=== PATIENT | male | born 1960 | race Caucasian/White ===

== ENCOUNTER → 2019-04-16 | Outpatient (CLI) | payer OTHER ==
--- NOTE | 2019-04-17 13:53 | CT ---
EXAMINATION TYPE: CT abdomen pelvis w con DATE OF EXAM: 04/16/2019 COMPARISON: None HISTORY: Pt c/o stomach pain/nausea. Peripheral vascular angioplasty status. Pt hx abdominal aorta re pair CT DLP: 1036.9 mGycm Automated exposure control for dose reduction was used. TECHNIQUE: Helical acquisition of images was performed from the lung bases through the pelvis. CONTRAST: Performed with Oral Contrast and with IV Contrast, patient injected with 100 mL of Isovue 300. FINDINGS: LUNG BASES: Bibasilar subsegmental dependent atelectasis is seen. There is an oval well-circumscribed 2.6 x 1.3 cm right basilar nodule that appears to contain macroscopic fat and is favored to represen t a hamartoma. Right hemidiaphragm is noted. LIVER/GB: There is a 1.2 cm hypoattenuated hepatic lesion on image 9 near the dome of the diaphragm i n segment 8 that is incompletely characterized. This appears to fill in on delayed imaging and may re present a small hemangioma. A 2 mm too small to accurately characterize lesion is also seen near the dome of diaphragm on delayed image 14. No intrahepatic biliary ductal dilatation. No radiopaque gladys lithiasis. PANCREAS: There are 2 punctate hypoattenuated pancreatic lesions measuring 2 mm and 4 mm on series 4 image 28 in the pancreatic body. No pancreatic ductal dilatation. Punctate calcifications are seen wi thin the pancreas, sequela of chronic pancreatitis. No current peripancreatic fat stranding. SPLEEN: No significant abnormality is seen. ADRENALS: No significant abnormality is seen. KIDNEYS: Left upper pole renal cyst and multiple additional too small to accurately characterize left renal lesions are scattered throughout the kidneys. No hydronephrosis. FREE AIR: No free air is visualized. ADENOPATHY: No greater than 1 cm short axis lymph node is seen within the abdomen or pelvis. REPRODUCTIVE ORGANS: Diffusely heterogenous containing numerous central zone calcifications. URINARY BLADDER: No significant abnormality is seen. OSSEOUS STRUCTURES: No significant abnormality is seen. BOWEL: Very subtle fat stranding is seen surrounding the transverse colon such as on image 38 and 39 . On coronal image 41 there is prominence of soft tissue also seen on image 43 near the ileocecal maribell ve is slightly distended terminal ileum on image 52. However the terminal and is nondilated measuring up to 2.5 cm. OTHER: Abdominal aorta appears of normal course and caliber. No surgical clips are seen surrounding t he abdominal aorta. Moderate calcific atheromatous changes are seen of the abdominal aorta and its br anches. No endovascular stent graft is seen. IMPRESSION: 1. PROMINENT SOFT TISSUE DENSITY IN THE CECUM NEAR THE ILEOCECAL VALVE WITH QUESTIONABLE REFLUX INTO THE TERMINAL ILEUM THE TERMINAL ILEUM IS SLIGHTLY PROMINENT IN SIZE COMPARED TO THE REMAINDER THE DISTAL ILEUM. CORRELATE WITH COLONOSCOPY IF SESSILE MASS. IF COLONOSCOPY HAS NOT RECENTLY PERFORMED I T WOULD BE RECOMMENDED. 2. RIGHT BASILAR PULMONARY NODULE APPEARS TO CONTAIN MACROSCOPIC FAT AND IS FAVORED TO REPRESENT A BE NIGN HAMARTOMA. COMPARISON WITH ANY PRIOR OUTSIDE IMAGING WOULD BE RECOMMENDED TO ENSURE STABILITY. I F NONE IS AVAILABLE SHORT-TERM FOLLOW-UP [address] THORAX OR PET/CT WOULD BE RECOMMENDED. 3. VERY SUBTLE FAT STRANDING SURROUNDING THE TRANSVERSE COLON COULD RELATE TO ACUTE UNCOMPLICATED MIL D COLITIS. CORRELATE WITH SYMPTOMS. 4. INDETERMINANT HEPATIC LESION IS SEEN THAT COULD REPRESENT A SMALL HEMANGIOMA GIVEN ITS ENHANCEMENT CHARACTERISTICS. ULTRASOUND COULD CONFIRM THE PRESENCE OF AN HYPERECHOIC LESION THAT WOULD CORRELATE WITH A HEMANGIOMA OR MRI WOULD BE DIAGNOSTIC AND STRAIGHTENING MARKED T2 HYPERINTENSITY. 5. NO CT CHANGES OF ENDOVASCULAR REPAIR ARE APPRECIATED IN THIS PATIENT WITH STATED PRIOR ABDOMINAL A ORTIC SURGERY. NO ANEURYSMAL DILATATION.
== END | disposition home or self-care (01) ==
LOC: RADCTMAIN 14:43
PROVIDERS: ATTEND Internal Medicine
DX: Z48.812 Encounter for surgical aftercare following surgery on the circulatory system (principal); K63.9 Disease of intestine, unspecified; R91.1 Solitary pulmonary nodule; K76.9 Liver disease, unspecified; K86.9 Disease of pancreas, unspecified; Z98.62 Peripheral vascular angioplasty status
CPT/HCPCS: 74177; Q9967

== ENCOUNTER → 2019-05-03 | Outpatient (CLI) | payer OTHER ==
--- NOTE | 2019-05-03 08:19 | US ---
EXAMINATION TYPE: US liver DATE OF EXAM: 05/03/2019 COMPARISON: CT dated 04/16/2019 CLINICAL HISTORY: D18.03 Hemangioma of Liver. EXAM MEASUREMENTS: Liver Length: 12.6 cm Gallbladder Wall: 0.2 cm CBD: 0.3 cm Right Kidney: 11.4 x 4.4 x 5.7 cm Pancreas: Head slightly obscured by bowel gas Liver: round, well circumscribed, hyperechoic focus, probable hemangioma measuring 1.2 x 1.3 x 1.3cm Gallbladder: tiny echogenic foci measuring 2mm probable small polyps Evidence for sonographic Mera's sign: no CBD: wnl Right Kidney: wnl IMPRESSION: 1. Hyperechoic hepatic lesion correlates with the probable hemangioma on the prior CT of 04/16/2019. T his is also avascular. Considering appearance on both modalities this is most compatible with a benig n hemangioma. 2. Slightly heterogenous hyperechoic subcapsular right hepatic lobe in region likely and area of foca l fatty infiltration as normal vessels course throughout this area without mass effect and this is ge ographic. 3. Probable 2 mm polyp in the gallbladder. Annual surveillance could be performed for polyps of ascit es.
== END | disposition home or self-care (01) ==
LOC: RADUSWWP 06:43
PROVIDERS: ATTEND Internal Medicine
DX: D18.03 Hemangioma of intra-abdominal structures (principal)
CPT/HCPCS: 76705

== ENCOUNTER 2022-02-12 08:30 | Inpatient (IN) | payer MEDICARE, OTHER ==
[2022-02-12 09:36] LABS: Basophils # (A) 0.1 k/uL (0-0.2); Basophils % (A) 0 %; Eosinophils % (A) 0 %; HCT 46.8 % (39.0-53.0); HGB 15.1 gm/dL (13.0-17.5); Lymphocytes # (A) 0.9 k/uL (1.0-4.8); Lymphocytes % (A) 4 %; MCH 30.9 pg (25.0-35.0); MCHC 32.3 g/dL (31.0-37.0); MCV 95.7 fL (80.0-100.0); Mean Platelet Volume 7.3; Monocytes # (A) 0.5 k/uL (0-1.0); Monocytes % (A) 2 %; Neutrophils # (A) 20.3 k/uL (1.3-7.7); Neutrophils % (A) 93 %; Platelet Count 303 k/uL (150-450); RBC 4.89 m/uL (4.30-5.90); RDW 14.2 % (11.5-15.5); WBC 21.9 k/uL (3.8-10.6)
[2022-02-12 09:40] LABS: INR 1.1 (<1.2); Partial Thromboplastin Time 22.4 sec (22.0-30.0); Prothrombin Time 11.6 sec (9.0-12.0)
[2022-02-12 09:48] LABS: ALT 43 U/L (4-49); AST 21 U/L (17-59); African American GFR (CKD) >90 (>60 ml/min/1.73 sqM); Albumin 3.1 g/dL (3.5-5.0); Alkaline Phosphatase 66 U/L (38-126); Anion Gap 5 mmol/L; Blood Urea Nitrogen 32 mg/dL (9-20); Calcium 8.3 mg/dL (8.4-10.2); Carbon Dioxide 30 mmol/L (22-30); Chloride 101 mmol/L (98-107); Glucose 106 mg/dL (74-99); Non-African American GFR(CKD) >90 (>60 ml/min/1.73 sqM); Sodium 136 mmol/L (137-145); Total Bilirubin 1.6 mg/dL (0.2-1.3); Total Protein 6.5 g/dL (6.3-8.2)
--- NOTE | 2022-02-12 10:31 | XR ---
EXAMINATION TYPE: XR chest 2V DATE OF EXAM: 02/12/2022 COMPARISON: CT 04/16/2019 HISTORY: 61 year-old male shortness of breath, difficulty breathing TECHNIQUE: AP and lateral views FINDINGS: Heart upper limits of normal in size. Aorta within normal limits. Mild interstitial prominence. Some strandy left basilar atelectasis. Small left-sided pleural effusion on the lateral view. Similar asym metric elevation right hemidiaphragm. IMPRESSION: Borderline heart size. Small left pleural effusion on the lateral view. Correlate to exclude mild CHF as a potential etiology.
[2022-02-12] MEDS ORDERED: methylPREDNISolone SOD SUCCI 125 MG/2 ML VIAL IV STA (10:39)
[2022-02-12] MEDS ORDERED: VANCOMYCIN IV PER PHARMACY 1 EACH MISC MISCELLANE PRN (10:40)
[2022-02-12] MEDS ORDERED: MORPHINE SULFATE 4 MG/ML SYRINGE IVP STA ×2 (10:40→12:55)
[2022-02-12] MEDS ORDERED: VANCOMYCIN 1,750 MG in SODIUM CHLORIDE 0.9% 500 ML 500 ML IVPB STA (10:43)
--- NOTE | 2022-02-12 12:31 | XR ---
EXAMINATION TYPE: XR ankle complete bilateral DATE OF EXAM: 02/12/2022 COMPARISON: NONE HISTORY: Pain FINDINGS: Three views of the bilateral ankle demonstrate the ankle mortise to be intact and symmetric. The meliton nt spaces are preserved. The osseous structures are intact. Soft tissue edema. Calcaneal spurs IMPRESSION: 1. No definite acute fracture or dislocation, if symptoms persist follow-up study in 7 to 10 days wou ld be suggested. 2. Tiny calcaneal spurs
--- NOTE | 2022-02-12 12:34 | XR ---
EXAMINATION TYPE: XR foot complete bilateral DATE OF EXAM: 02/12/2022 COMPARISON: NONE HISTORY: Pain TECHNIQUE: Three views are submitted. FINDINGS: The osseous structures are intact. There is no acute fracture or dislocation. Diffuse osteopenia b ilaterally. There is arthropathy of the first MTP bilaterally. No erosive changes. Tiny calcaneal spurs. IMPRESSI ON: 1. No acute fracture or dislocation. If symptoms persist, follow-up exam in 7 to 10 days could be ob tained.
--- NOTE | 2022-02-12 12:35 | ED ---
General Adult HPI - General Chief complaint: Extremity Problem,Nontraumatic Stated complaint: Feet Swelling/Shoulder Pain Time Seen by Provider: 02/12/22 10:10 Source: patient, family, RN notes reviewed, old records reviewed Mode of arrival: wheelchair Limitations: no limitations - History of Present Illness Initial comments: Patient is a 61-year-old male with past medical history remarkable for rheumatoid arthritis, hypertension, who was recently discharged from an outside facility yesterday following admission for heart failure exacerbation presents emergency Department complaining of worsening pain and swelling in his right hand, bilateral feet. Patient states this is been an ongoing issue. Believes it is related to his rheumatoid arthritis. He was discharged home on steroids following a progressive course of steroids in the emergency department and during his admission. States he is having pain in these areas. Decreased range of motion secondary to pain. Denies any sensory deficits. Did notice development of an area of redness over the dorsal aspect of the right foot. Denies any fevers, chills. Was not placed on antibiotics. His no other acute complaints at this time. Patient was evaluated when he was placed in a room. Workup was started in the waiting room. - Related Data Home Medications Medication Instructions Recorded Confirmed Cholecalciferol [Vitamin D3 (25 25 mcg PO DAILY 02/12/22 02/12/22 Mcg = 1000 Iu)] Colchicine 0.6 mg PO DAILY 02/12/22 02/12/22 Famotidine [Pepcid] 20 mg PO BID 02/12/22 02/12/22 Furosemide [Lasix] 20 mg PO DAILY 02/12/22 02/12/22 HYDROcodone/APAP 7.5-325MG [[place] 1 tab PO Q6H PRN 02/12/22 02/12/22 7.5-325] carvediloL [Coreg] 3.125 mg PO BID 02/12/22 02/12/22 lisinopriL [Zestril] 5 mg PO DAILY 02/12/22 02/12/22 predniSONE See Taper PO DAILY 02/12/22 02/12/22 Allergies Allergy/AdvReac Type Severity Reaction Status Date / Time No Known Allergies Allergy Verified 02/12/22 10:47 Review of Systems ROS Statement: Those systems with pertinent positive or pertinent negative responses have been documented in the HPI. Review of Systems: CONST: Denies fever EYES: Denies blurry vision ENT: Denies nasal congestion C/V: Denies Chest pain RESP: Denies shortness of breath GI: Denies abdominal pain : Denies dysuria SKIN: Endorses redness of her right foot MSK: Endorses joint pain NEURO: Denies headache ROS Other: All systems not noted in ROS Statement are negative. Past Medical History Past Medical History: Hypertension, Rheumatoid Arthritis (RA) History of Any Multi-Drug Resistant Organisms: None Reported Additional Past Surgical History / Comment(s): cataracts, colonoscopy Past Psychological History: No Psychological Hx Reported Smoking Status: Current every day smoker Past Alcohol Use History: None Reported Past Drug Use History: None Reported General Exam - General Exam Comments Initial Comments: General: Appears in mild distress secondary to pain in his feet and his right hand. HEAD: Normal with no signs of head trauma. EYES: PERRLA, EOMI, conjunctiva normal, no discharge. ENT: Hearing grossly intact, normal oropharynx. RESPIRATORY: Clear breath sounds bilaterally. No wheezes, rales, or rhonchi. C/V: Regular rate and rhythm. S1 and S2 auscultated, bilateral mild pitting edema of bilateral ankles., peripheral pulses 2+ and intact throughout ABD: Abd is soft, nontender, nondistended EXT: Swelling and increased tenderness to palpation over the right foot, left foot, right wrist. No obvious deformities. Decreased range of motion secondary to swelling and pain. SKIN: Erythematous patch located over the dorsal aspect of the right foot in the midfoot region. No obvious fluctuance palpated. No induration. No discharge. NEURO: Alert and oriented 4. No focal sensory strength deficits. Difficulty walking secondary to pain in his feet. Limitations: no limitations Course Vital Signs 02/12/22 02/12/22 08:39 12:50 Temperature 97.0 F L Pulse Rate 73 90 Respiratory 18 18 Rate Blood Pressure 116/77 129/80 O2 Sat by Pulse 96 98 Oximetry Procedures - [place] Protocol (Time Out) Nurse: Valentina Quintana Medical Decision Making - Medical Decision Making Based on the patient's presentation and physical exam, I'm concerned for possible cellulitis of the right foot, and what is likely a exacerbation of the patient's rheumatoid arthritis. He's been on steroids for multiple days, we camille l continue them in the department. He'll receive pain medications. His no other acute complaint at this time. Workup was started in triage. It was remarkable for an elevated leukocytosis of 21.9 which is likely secondary to his steroid use. Lactic acid is elevated to 2.6. CRP is minimally elevated to 22. Troponin was negative and BNP was negative. EKG showed no acute ischemic process. Chest x-ray revealed possible very mild CHF. He was brought back over concern for lactic acidosis and leukocytosis. On my evaluation, I did discuss with the patient that this may be factorial, however there is an area of erythema located on the patient's right foot which could represent a cellulitis. We will empirically treat with IV vancomycin. Her blood cultures in addition to BNP, which is negative for signs heart failure. Plain films of the patient's extremities revealed no acute process, but soft tissue swelling is present. X-ray of the hand does reveal nodules consistent with history of rheumatoid arthritis. I discussed with the patient that is likely experiencing a rheumatoid arthritis flare in addition to possible cellulitis of the dorsal aspect of the right foot. Patient is having difficulty ambulating. I did discuss with the patient we can admit him overnight as an observation admission, and he was in agreement. He for pain control as well as IV antibiotics. He will likely go home tomorrow. He is having difficulty ambulating with his leukocytosis and mild lactic ac idosis of this is reasonable. Patient was in agreement this plan. I discussed the case with the admitting team, observation to the [facility] physician group, Dr. Dias who was in agreement with the plan. - Lab Data Result diagrams: 02/12/22 08:55 02/12/22 08:55 Lab Results 02/12/22 02/12/22 02/12/22 Range/Units 08:55 08:55 08:55 WBC 21.9 H (3.8-10.6) k/uL RBC 4.89 (4.30-5.90) m/uL Hgb 15.1 (13.0-17.5) gm/dL Hct 46.8 (39.0-53.0) % MCV 95.7 (80.0-100.0) fL MCH 30.9 (25.0-35.0) pg MCHC 32.3 (31.0-37.0) g/dL RDW 14.2 (11.5-15.5) % Plt Count 303 (150-450) k/uL MPV 7.3 Neutrophils % 93 % Lymphocytes % 4 % Monocytes % 2 % Eosinophils % 0 % Basophils % 0 % Neutrophils # 20.3 H (1.3-7.7) k/uL Lymphocytes # 0.9 L (1.0-4.8) k/uL Monocytes # 0.5 (0-1.0) k/uL Eosinophils # 0.0 (0-0.7) k/uL Basophils # 0.1 (0-0.2) k/uL Manual Slide Review Performed PT 11.6 (9.0-12.0) sec INR 1.1 (<1.2) APTT 22.4 (22.0-30.0) sec Sodium 136 L (137-145) mmol/L Potassium 4.0 (3.5-5.1) mmol/L Chloride 101 (98-107) mmol/L Carbon Dioxide 30 (22-30) mmol/L Anion Gap 5 mmol/L BUN 32 H (9-20) mg/dL Creatinine 0.82 (0.66-1.25) mg/dL Est GFR (CKD-EPI)AfAm >90 (>60 ml/min/1.73 sqM) Est GFR (CKD-EPI)NonAf >90 (>60 ml/min/1.73 sqM) Glucose 106 H (74-99) mg/dL Lactic Ac Sepsis Rflx Plasma Lactic Acid Gregorio (0.7-2.0) mmol/L Calcium 8.3 L (8.4-10.2) mg/dL Total Bilirubin 1.6 H (0.2-1.3) mg/dL AST 21 (17-59) U/L ALT 43 (4-49) U/L Alkaline Phosphatase 66 (38-126) U/L Troponin I (0.000-0.034) ng/mL C-Reactive Protein (<1.0) mg/dL NT-Pro-B Natriuret Pep pg/mL Total Protein 6.5 (6.3-8.2) g/dL Albumin 3.1 L (3.5-5.0) g/dL Urine Color Urine Appearance (Clear) Urine pH (5.0-8.0) Ur Specific [place] (1.001-1.035) Urine Protein (Negative) Urine Glucose (UA) (Negative) Urine Ketones (Negative) Urine Blood (Negative) Urine Nitrite (Negative) Urine Bilirubin (Negative) Urine Urobilinogen (<2.0) mg/dL Ur Leukocyte Esterase (Negative) 02/12/22 02/12/22 02/12/22 Range/Units 08:55 08:55 10:00 WBC (3.8-10.6) k/uL RBC (4.30-5.90) m/uL Hgb (13.0-17.5) gm/dL Hct (39.0-53.0) % MCV (80.0-100.0) fL MCH (25.0-35.0) pg MCHC (31.0-37.0) g/dL RDW (11.5-15.5) % Plt Count (150-450) k/uL MPV Neutrophils % % Lymphocytes % % Monocytes % % Eosinophils % % Basophils % % Neutrophils # (1.3-7.7) k/uL Lymphocytes # (1.0-4.8) k/uL Monocytes # (0-1.0) k/uL Eosinophils # (0-0.7) k/uL Basophils # (0-0.2) k/uL Manual Slide Review PT (9.0-12.0) sec INR (<1.2) APTT (22.0-30.0) sec Sodium (137-145) mmol/L Potassium (3.5-5.1) mmol/L Chloride (98-107) mmol/L Carbon Dioxide (22-30) mmol/L Anion Gap mmol/L BUN (9-20) mg/dL Creatinine (0.66-1.25) mg/dL Est GFR (CKD-EPI)AfAm (>60 ml/min/1.73 sqM) Est GFR (CKD-EPI)NonAf (>60 ml/min/1.73 sqM) Glucose (74-99) mg/dL Lactic Ac Sepsis Rflx Y Plasma Lactic Acid Gregorio 2.6 H* (0.7-2.0) mmol/L Calcium (8.4-10.2) mg/dL Total Bilirubin (0.2-1.3) mg/dL AST (17-59) U/L ALT (4-49) U/L Alkaline Phosphatase (38-126) U/L Troponin I <0.012 (0.000-0.034) ng/mL C-Reactive Protein (<1.0) mg/dL NT-Pro-B Natriuret Pep pg/mL Total Protein (6.3-8.2) g/dL Albumin (3.5-5.0) g/dL Urine Color Urine Appearance (Clear) Urine pH (5.0-8.0) Ur Specific [place] (1.001-1.035) Urine Protein (Negative) Urine Glucose (UA) (Negative) Urine Ketones (Negative) Urine Blood (Negative) Urine Nitrite (Negative) Urine Bilirubin (Negative) Urine Urobilinogen (<2.0) mg/dL Ur Leukocyte Esterase (Negative) 02/12/22 02/12/22 02/12/22 Range/Units 11:15 11:15 12:25 WBC (3.8-10.6) k/uL RBC (4.30-5.90) m/uL Hgb (13.0-17.5) gm/dL Hct (39.0-53.0) % MCV (80.0-100.0) fL MCH (25.0-35.0) pg MCHC (31.0-37.0) g/dL RDW (11.5-15.5) % Plt Count (150-450) k/uL MPV Neutrophils % % Lymphocytes % % Monocytes % % Eosinophils % % Basophils % % Neutrophils # (1.3-7.7) k/uL Lymphocytes # (1.0-4.8) k/uL Monocytes # (0-1.0) k/uL Eosinophils # (0-0.7) k/uL Basophils # (0-0.2) k/uL Manual Slide Review PT (9.0-12.0) sec INR (<1.2) APTT (22.0-30.0) sec Sodium (137-145) mmol/L Potassium (3.5-5.1) mmol/L Chloride (98-107) mmol/L Carbon Dioxide (22-30) mmol/L Anion Gap mmol/L BUN (9-20) mg/dL Creatinine (0.66-1.25) mg/dL Est GFR (CKD-EPI)AfAm (>60 ml/min/1.73 sqM) Est GFR (CKD-EPI)NonAf (>60 ml/min/1.73 sqM) Glucose (74-99) mg/dL Lactic Ac Sepsis Rflx Plasma Lactic Acid Greg[place] 2.4 H* (0.7-2.0) mmol/L Calcium (8.4-10.2) mg/dL Total Bilirubin (0.2-1.3) mg/dL AST (17-59) U/L ALT (4-49) U/L Alkaline Phosphatase (38-126) U/L Troponin I (0.000-0.034) ng/mL C-Reactive Protein 22.0 H (<1.0) mg/dL NT-Pro-B Natriuret Pep 379 pg/mL Total Protein (6.3-8.2) g/dL Albumin (3.5-5.0) g/dL Urine Color Urine Appearance (Clear) Urine pH (5.0-8.0) Ur Specific [place] (1.001-1.035) Urine Protein (Negative) Urine Glucose (UA) (Negative) Urine Ketones (Negative) Urine Blood (Negative) Urine Nitrite (Negative) Urine Bilirubin (Negative) Urine Urobilinogen (<2.0) mg/dL Ur Leukocyte Esterase (Negative) 02/12/22 Range/Units 12:29 WBC (3.8-10.6) k/uL RBC (4.30-5.90) m/uL Hgb (13.0-17.5) gm/dL Hct (39.0-53.0) % MCV (80.0-100.0) fL MCH (25.0-35.0) pg MCHC (31.0-37.0) g/dL RDW (11.5-15.5) % Plt Count (150-450) k/uL MPV Neutrophils % % Lymphocytes % % Monocytes % % Eosinophils % % Basophils % % Neutrophils # (1.3-7.7) k/uL Lymphocytes # (1.0-4.8) k/uL Monocytes # (0-1.0) k/uL Eosinophils # (0-0.7) k/uL Basophils # (0-0.2) k/uL Manual Slide Review PT (9.0-12.0) sec INR (<1.2) APTT (22.0-30.0) sec Sodium (137-145) mmol/L Potassium (3.5-5.1) mmol/L Chloride (98-107) mmol/L Carbon Dioxide (22-30) mmol/L Anion Gap mmol/L BUN (9-20) mg/dL Creatinine (0.66-1.25) mg/dL Est GFR (CKD-EPI)AfAm (>60 ml/min/1.73 sqM) Est GFR (CKD-EPI)NonAf (>60 ml/min/1.73 sqM) Glucose (74-99) mg/dL Lactic Ac Sepsis Rflx Plasma Lactic Acid [place] (0.7-2.0) mmol/L Calcium (8.4-10.2) mg/dL Total Bilirubin (0.2-1.3) mg/dL AST (17-59) U/L ALT (4-49) U/L Alkaline Phosphatase (38-126) U/L Troponin I (0.000-0.034) ng/mL C-Reactive Protein (<1.0) mg/dL NT-Pro-B Natriuret Pep pg/mL Total Protein (6.3-8.2) g/dL Albumin (3.5-5.0) g/dL Urine Color Yellow Urine Appearance Clear (Clear) Urine pH 6.0 (5.0-8.0) Ur Specific [place] 1.030 (1.001-1.035) Urine Protein Trace H (Negative) Urine Glucose (UA) Negative (Negative) Urine Ketones Negative (Negative) Urine Blood Negative (Negative) Urine Nitrite Negative (Negative) Urine Bilirubin Negative (Negative) Urine Urobilinogen 2.0 (<2.0) mg/dL Ur Leukocyte Esterase Negative (Negative) - EKG Data -: EKG Interpreted by Me EKG Comments: 12-lead Electrocardiogram Interpretation Note EKG was reviewed and interpreted by myself. 12-lead ECG performed at 0855 is interpreted by me as revealing normal sinus rhythm at a rate of 75 beats per minute. [place] is normal. OR interval is 155 ms, QRS duration is 137 ms, QTc is 447 ms.. There were no ST or T wave abnormalities to suggest myocardial ischemia or injury. R wave progression across the precordium was satisfactory. By my interpretation this EKG is non-diagnostic for acute ischemia. Disposition Clinical Impression: Cellulitis, Rheumatoid arthritis flare, Lactic acidosis Disposition: ADMITTED IP TO THIS HOSP Condition: Stable Referrals: Margarito Kulkarni DO [Primary Care Provider] - 1-2 days
--- NOTE | 2022-02-12 12:36 | XR ---
EXAMINATION TYPE: XR wrist complete 3 views RT, XR hand complete 3 views RT DATE OF EXAM: 02/12/2022 COMPARISON: NONE HISTORY: 61-year-old male pain FINDINGS: Wrist: Generalized soft tissue swelling. Subchondral geode measuring up to 9 mm mid radial since and also 5 mm ulnar styloid process. Additional subchondral geodes within the lunate measuring 6 mm. There is er osive change of the ulnar styloid process and possible subtle marginal erosions at the trapezium scap hoid joint and first CMC joint. Also, along the dorsal aspect of the CMC joint on the lateral view. N o acute fracture or dislocation. Hand: Marginal erosions involving the second and fifth MCP joints. Lesser degree of changes of the PIP join ts particularly second and third as well as the first MCP joint. Periarticular osteopenia and mild so ft tissue swelling. IMPRESSION (wrist and hand): Subcortical cysts about the wrist, erosion of the ulnar styloid process, and multiple areas of periar ticular erosion CMC, MCP, and PIP joints. Generalized soft tissue swelling. Overall pattern suggests an inflammatory arthropathy such as rheumatoid arthritis. Further workup and evaluation is recommende dMonika
[2022-02-12] MEDS ORDERED: SODIUM CHLORIDE 0.9% 500 ML 500 ML IV ONE (12:37)
[2022-02-12] MEDS ORDERED: NALOXONE 0.4 MG/ML 1 ML VIAL IV PRN (12:51)
[2022-02-12 13:03] LABS: Appearance,Urine Clear (Clear); Bilirubin,Urine Negative (Negative); Blood,Urine Negative (Negative); Color,Urine Yellow; Glucose,Urine (UA) Negative (Negative); Ketones,Urine Negative (Negative); Leukocyte Esterase,Urine Negative (Negative); Nitrite,Urine Negative (Negative); Protein,Urine Trace (Negative)
[2022-02-12] MEDS: KETOROLAC 15 MG/ML 1 ML VIAL IVP SCH ×2 (14:42→20:50)
[2022-02-12] MEDS: carvediloL 3.125 MG TAB PO SCH (14:56)
--- NOTE | 2022-02-12 17:38 | P.HPIM ---
History of Present Illness H&P Date: 02/12/22 Chief Complaint: ankle/joint swelling 61-year-old man with hypertension, severe obstructive sleep apnea, history of congestive heart failure with unspecified ejection fraction, rheumatoid arthritis, gout presented with joint swelling and pain. Patient says that this has been present for approximately 1 week, initially went to the hospital to get treated for this, was started with IV steroids, then discharged on by mouth steroids and colchicine. Furthermore, his hydrochlorothiazide was discontinued and replaced with Lasix and carvedilol. However, he apparently did not start taking his oral steroids, and his ankle swelling and pain returned, in addition to now having pain in the right wrist as well with limited mobility. He also reports some increased dorsal foot redness, heat. He denies fevers, chills, nausea, vomiting, chest pain, palpitations, sick to be, presyncope, cough, dyspnea, abdominal pain, constipation, diarrhea, dysuria, dyschezia, numbness/weakness of extremities. In the emergency room, patient is afebrile, 116/77, 96% on room air, heart rate 73. CBC is markable for leukocytosis to 21.9, chemistries remarkable for elevated BUN to 32. LFTs are unremarkable. ESR/CRP are 28/22. Troponin was negative. BNP was 379. UA shows trace protein, otherwise unremarkable. Patient had foot and ankle x-ray which showed arthropathy of the first MTP bilaterally, no erosive changes. Patient had hand and wrist x-ray, showing subcortical cyst about the wrists, rotation of the ulnar styloid process and multiple areas of periarticular erosion with generalized soft tissue swelling. All Systems reviewed and pertinent positives and negatives noted in HPI, all other symptoms are negative Gen: awake, alert, obesity class III HEENT: normocephalic, atraumatic, good hearing acuity, moist mucous membranes Resp: good air exchange, breathing comfortably with no accessory muscle use CVS: good distal perfusion x 4, GI: soft, NTTP, ND : no SPT, no CVAT, jordan catheter not present MSK: Trace pitting edema, no clubbing, right ankle swelling with mild erythema, right wrist swelling with limited range of motion, redness, calor Neuro: non-focal, moving all extremities Psych: cooperative, euthymic mood Labs and imaging reviewed as above Assessment/plan: Rheumatoid arthritis flare -Admit to observation -Continue home prednisone, 40 mg daily -Morphine/Toradol when necessary -Continue Lasix, Coreg -Patient was started on vancomycin for suspected cellulitis, however, I will discontinue this, as the white blood cell count is likely reactive to steroids as well as ongoing rheumatoid arthritis flare -Uric acid is normal ruling out Gout, will not restart home colchicine MICHELLE History of congestive heart failure, unspecified ejection fraction Hypertension -Home medications reviewed and reconciled Patient is a full code Heparin 3 times a day for DVT prophylaxis Past Medical History Past Medical History: Hypertension, Rheumatoid Arthritis (RA) History of Any Multi-Drug Resistant Organisms: None Reported Additional Past Surgical History / Comment(s): cataracts, colonoscopy Past Psychological History: No Psychological Hx Reported Smoking Status: Current every day smoker Past Alcohol Use History: None Reported Past Drug Use History: None Reported Medications and Allergies Home Medications Medication Instructions Recorded Confirmed Type Cholecalciferol [Vitamin D3 (25 25 mcg PO DAILY 02/12/22 02/12/22 History Mcg = 1000 Iu)] Colchicine 0.6 mg PO DAILY 02/12/22 02/12/22 History Famotidine [Pepcid] 20 mg PO BID 02/12/22 02/12/22 History Furosemide [Lasix] 20 mg PO DAILY 02/12/22 02/12/22 History HYDROcodone/APAP 7.5-325MG [[place] 1 tab PO Q6H PRN 02/12/22 02/12/22 History 7.5-325] carvediloL [Coreg] 3.125 mg PO BID 02/12/22 02/12/22 History lisinopriL [Zestril] 5 mg PO DAILY 02/12/22 02/12/22 History predniSONE See Taper PO DAILY 02/12/22 02/12/22 History Allergies Allergy/AdvReac Type Severity Reaction Status Date / Time No Known Allergies Allergy Verified 02/12/22 10:47 Physical Exam Osteopathic Statement: *. No significant issues noted on an osteopathic structural exam other than those noted in the History and Physical/Consult. Vitals: Vital Signs Temp Pulse Resp BP Pulse Ox 02/12/22 14:55 74 18 125/81 93 L 02/12/22 12:50 90 18 129/80 98 02/12/22 08:39 97.0 F L 73 18 116/77 96 Intake and Output 02/12/22 02/12/22 02/12/22 06:59 14:59 22:59 Other: Weight 108.862 kg Results CBC & Chem 7: 02/12/22 08:55 02/12/22 08:55 Labs: Abnormal Lab Results - Last 24 Hours (Table) 02/12/22 02/12/22 02/12/22 Range/Units 08:55 08:55 08:55 WBC 21.9 H (3.8-10.6) k/uL Neutrophils # 20.3 H (1.3-7.7) k/uL Lymphocytes # 0.9 L (1.0-4.8) k/uL ESR (0-15) mm/hr Sodium 136 L (137-145) mmol/L BUN 32 H (9-20) mg/dL Glucose 106 H (74-99) mg/dL Plasma Lactic Acid Gregorio 2.6 H* (0.7-2.0) mmol/L Calcium 8.3 L (8.4-10.2) mg/dL Total Bilirubin 1.6 H (0.2-1.3) mg/dL C-Reactive Protein (<1.0) mg/dL Albumin 3.1 L (3.5-5.0) g/dL Urine Protein (Negative) 02/12/22 02/12/22 02/12/22 Range/Units 08:55 11:15 12:25 WBC (3.8-10.6) k/uL Neutrophils # (1.3-7.7) k/uL Lymphocytes # (1.0-4.8) k/uL ESR 28 H (0-15) mm/hr Sodium (137-145) mmol/L BUN (9-20) mg/dL Glucose (74-99) mg/dL Plasma Lactic Acid Greogrio 2.4 H* (0.7-2.0) mmol/L Calcium (8.4-10.2) mg/dL Total Bilirubin (0.2-1.3) mg/dL C-Reactive Protein 22.0 H (<1.0) mg/dL Albumin (3.5-5.0) g/dL Urine Protein (Negative) 02/12/22 02/12/22 Range/Units 12:29 15:26 WBC (3.8-10.6) k/uL Neutrophils # (1.3-7.7) k/uL Lymphocytes # (1.0-4.8) k/uL ESR (0-15) mm/hr Sodium (137-145) mmol/L BUN (9-20) mg/dL Glucose (74-99) mg/dL Plasma Lactic Acid Gregorio 2.2 H* (0.7-2.0) mmol/L Calcium (8.4-10.2) mg/dL Total Bilirubin (0.2-1.3) mg/dL C-Reactive Protein (<1.0) mg/dL Albumin (3.5-5.0) g/dL Urine Protein Trace H (Negative)
[2022-02-12] MEDS: HEPARIN SODIUM,PORCINE/PF 5,000 UNIT/0.5 ML SYRINGE SQ SCH (18:57)
[2022-02-12] MEDS: FAMOTIDINE 20 MG TAB PO SCH (21:48)
[2022-02-12] MEDS ORDERED: VANCOMYCIN 1,750 MG in SODIUM CHLORIDE 0.9% 500 ML 500 ML IVPB SCH (23:00)
[2022-02-13] MEDS: KETOROLAC 15 MG/ML 1 ML VIAL IVP SCH ×5 (00:06→23:30)
[2022-02-13] MEDS: HEPARIN SODIUM,PORCINE/PF 5,000 UNIT/0.5 ML SYRINGE SQ SCH ×4 (00:06→23:31)
[2022-02-13] MEDS: FUROSEMIDE 20 MG TAB PO SCH (08:59)
[2022-02-13] MEDS ORDERED: predniSONE 20 MG TAB PO SCH (09:00)
[2022-02-13] MEDS: carvediloL 3.125 MG TAB PO SCH ×2 (09:01→17:40)
[2022-02-13] MEDS: lisinopriL 5 MG TAB PO SCH (09:01)
[2022-02-13] MEDS: FAMOTIDINE 20 MG TAB PO SCH ×2 (09:05→21:40)
[2022-02-13] MEDS ORDERED: VANCOMYCIN IV PER PHARMACY 1 EACH MISC MISCELLANE PRN (10:23)
--- NOTE | 2022-02-13 10:39 | P.PN ---
Subjective Progress Note Date: 02/13/22 Pt still with significant swelling in right wrist and knuckles with pain and erythema. BCx GS is positive for GPCs in clusters concerning for staph infection and septic arthritis. Will consult ID and ortho. Gen: awake, alert, obesity class III HEENT: normocephalic, atraumatic, good hearing acuity, moist mucous membranes Resp: good air exchange, breathing comfortably with no accessory muscle use CVS: good distal perfusion x 4, GI: soft, NTTP, ND : no SPT, no CVAT, jordan catheter not present MSK: Trace pitting edema, no clubbing, right ankle swelling with mild erythema, right wrist swelling with limited range of motion, redness, calor Neuro: non-focal, moving all extremities Psych: cooperative, euthymic mood Labs and imaging reviewed as above Assessment/plan: Cellulitis versus Septic Arthritis -Admit to observation, upgraded to inpatient -Continue home prednisone, 40 mg daily -Morphine/Toradol when necessary -Continue Lasix, Coreg -Continue vancomycin -f/u BCx, GS with +GPCs in groups, will add Cx for 02/14 -Ortho consult, pending -ID consult, pending -Uric acid is normal ruling out Gout, will not restart home colchicine MICHELLE History of congestive heart failure, unspecified ejection fraction Hypertension -Home medications reviewed and reconciled Patient is a full code Heparin 3 times a day for DVT prophylaxis Objective - Vital Signs Vital signs: Vital Signs Temp 98.1 F 02/13/22 07:18 Pulse 61 02/13/22 07:18 Resp 16 02/13/22 07:18 BP 110/51 02/13/22 07:18 Pulse Ox 97 02/13/22 07:18 Intake & Output 02/12/22 02/13/22 02/13/22 18:59 06:59 18:59 Output Total 550 200 Balance -550 -200 Weight 108.862 kg Output: Urine 550 200 Other: # Voids 0 - Labs CBC & Chem 7: 02/12/22 08:55 02/12/22 08:55 Labs: Abnormal Lab Results - Last 24 Hours (Table) 02/12/22 02/12/22 02/12/22 Range/Units 08:55 11:15 12:25 ESR 28 H (0-15) mm/hr Plasma Lactic Acid Gregorio 2.4 H* (0.7-2.0) mmol/L C-Reactive Protein 22.0 H (<1.0) mg/dL Urine Protein (Negative) 02/12/22 02/12/22 02/12/22 Range/Units 12:29 15:26 18:45 ESR (0-15) mm/hr Plasma Lactic Acid Gregorio 2.2 H* 2.2 H* (0.7-2.0) mmol/L C-Reactive Protein (<1.0) mg/dL Urine Protein Trace H (Negative) 02/12/22 02/13/22 Range/Units 23:07 01:45 ESR (0-15) mm/hr Plasma Lactic Acid Gregorio 2.3 H* 2.2 H* (0.7-2.0) mmol/L C-Reactive Protein (<1.0) mg/dL Urine Protein (Negative) Microbiology - Last 24 Hours (Table) 02/12/22 11:30 Blood Culture Gram Stain - Preliminary Blood 02/12/22 11:30 Blood Culture Gram Stain - Preliminary Blood 02/12/22 11:15 Blood Culture - Final Blood 02/12/22 11:30 Blood Culture - Final Blood
[2022-02-13 12:13] LABS: African American GFR (CKD) 99.9 (60.0-200.0); Non-African American GFR(CKD) 86.2 (60.0-200.0)
--- NOTE | 2022-02-13 12:15 | P.CNOR ---
History of Present Illness - [facility] Consult date: 02/13/22 Consult reason: joint pain (Right wrist pain, recent positive blood culture, concern for right wrist septic arthritis) History of present illness: Patient is a 61-year-old male was admitted to [facility] on 02/12/2022. Patient was recently discharged from [facility] after being worked up for cardiac issue. Patient has a history of rheumatoid arthritis, he currently does not take any biologic medications for this. 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 Patient has been on a few doses of oral steroids over the last few weeks. Patient presented to the hospital with regards to increasing pain and swelling in the bilateral feet along with the right wrist. Initial lab tests and imaging test were done when the patient arrived at the hospital. Cultures were also taken. I was contacted by the internal medicine doctor today regarding patient's Gram stain from the blood culture that revealed gram-positive cocci. With the wrist swelling and discomfort there is concern for septic arthritis, our orthopedic team was consulted for this reason. Patient was evaluated at bedside today, he is resting comfortably. He notes most of the discomfort in the dorsum of the hand and the wrist joint on the right-hand side. Patient states that the swelling in the feet are also bothering him, but nothing compared to the right wrist. Patient denies any re cent surgery of the right wrist. He does have a history of a carpal tunnel surgery that was done many years ago at a different facility. Patient denies any orthopedic complaints at this time Review of Systems Constitutional: Reports as per [facility] Past Medical History Past Medical History: Hypertension, Rheumatoid Arthritis (RA) History of Any Multi-Drug Resistant Organisms: None Reported Additional Past Surgical History / Comment(s): cataracts, colonoscopy Past Psychological History: No Psychological Hx Reported Smoking Status: Current every day smoker Past Alcohol Use History: None Reported Past Drug Use History: None Reported Medications and Allergies Home Medications Medication Instructions Recorded Confirmed Type Famotidine [Pepcid] 20 mg PO BID 02/12/22 02/12/22 History carvediloL [Coreg] 3.125 mg PO BID 02/12/22 02/12/22 History lisinopriL [Zestril] 5 mg PO DAILY 02/12/22 02/12/22 History predniSONE See Taper PO DAILY 02/12/22 02/12/22 History HYDROcodone/APAP 7.5-325MG [[place] 1 tab PO Q4H PRN #18 tab 02/13/22 Rx 7.5-325] Ibuprofen [Motrin] 600 mg PO Q6HR PRN #30 tab 02/13/22 Rx Allergies Allergy/AdvReac Type Severity Reaction Status Date / Time No Known Allergies Allergy Verified 02/12/22 10:47 Physical Examination Right upper extremity: No obvious open lesions are present throughout the right upper extremity. There are multiple rheumatologic nodules present on the right hand, mainly across the digits of the hand, there are also some present at the MCP joints, mainly on the fifth MCP joint. There is some scabbing noted on that nodule on the fifth MCP joint. Mild erythema surrounds that area. No other significant areas of erythema are noted throughout the extremity Patient demonstrates adequate range of motion with shoulder elevation, shoulder abduction, wrist extension and wrist flexion. No significant pain is reproduced in those joints with range of motion. Patient is able to wiggle all the fingers and minimal difficulty, he has a hard time making a fist. Active motion of the wrist does reproduce pain mainly on the dorsal aspect, passive range of motion also reproduces significant pain at the distal radial ulnar joint. Passive motion of the fingers reproduces no significant pain in any of the joints both on the dorsum and volar side Obvious swelling is present throughout the dorsum of the hand and also at the radioulnar joint. This is obviously noticeable when comparing to the contralateral side. No significant tenderness with palpation throughout the fingers, including DIP and PIP joints along with the MCP joints. Obvious tenderness with palpation along the distal radioulnar joint with palpation. Difficult to appreciate obvious area of fluctuance near the DRUJ, although he demonstrates more tenderness on the ulnar aspect of the joint with obvious swelling present Sensory exam to light touch is intact throughout the extremity. Radial ulnar pulses are 2+ Results - Labs Labs: Abnormal Lab Results - Last 24 Hours (Table) 02/12/22 02/12/22 02/12/22 Range/Units 08:55 11:15 12:25 ESR 28 H (0-15) mm/hr Plasma Lactic Acid Gregorio 2.4 H* (0.7-2.0) mmol/L C-Reactive Protein 22.0 H (<1.0) mg/dL Urine Protein (Negative) 02/12/22 02/12/22 02/12/22 Range/Units 12:29 15:26 18:45 ESR (0-15) mm/hr Plasma Lactic Acid Gregorio 2.2 H* 2.2 H* (0.7-2.0) mmol/L C-Reactive Protein (<1.0) mg/dL Urine Protein Trace H (Negative) 02/12/22 02/13/22 Range/Units 23:07 01:45 ESR (0-15) mm/hr Plasma Lactic Acid Gregorio 2.3 H* 2.2 H* (0.7-2.0) mmol/L C-Reactive Protein (<1.0) mg/dL Urine Protein (Negative) Microbiology - Last 24 Hours (Table) 02/12/22 11:30 Blood Culture Gram Stain - Preliminary Blood 02/12/22 11:30 Blood Culture Gram Stain - Preliminary Blood 02/12/22 11:15 Blood Culture - Final Blood 02/12/22 11:30 Blood Culture - Final Blood H & H 02/12/22 Range/Units 08:55 Hgb 15.1 (13.0-17.5) gm/dL Hct 46.8 (39.0-53.0) % Coagulation 02/12/22 Range/Units 08:55 INR 1.1 (<1.2) Result Diagrams: 02/12/22 08:55 02/12/22 08:55 - Diagnostic results Wrist/Hand MRI: report reviewed, image reviewed (Imaging and report were reviewed of the right wrist/10. No obvious acute fractures or dislocations. Multiple subcortical cysts noted throughout the hand and wrist) Assessment and Plan Assessment: Right wrist pain/swelling Rheumatoid arthritis, right wrist involvement Possible septic arthritis right wrist Other medical comorbidities Plan: I was able to discuss the case, including physical exam findings and imaging studies and my attending Dr. Landeros. Patient was made nothing by mouth after my evaluation. Discussed with patient with his lab findings along with physical exam findings and his other medical comorbidities he is a higher risk for infection. Also taking the consideration of positive blood culture this also makes him a higher risks it could be involving the right wrist. Dr. Landeros will be evaluating the patient little later on this afternoon, he will likely attempt an aspiration of the right wrist. If this is done, proper tubes will be sent to lab for further evaluation. Nothing by mouth diet at this time GI and DVT prophylaxis per primary medical service Other medical receptionist medical assistant and recommendations Further recommendations to follow Time with Patient: Less than 30
[2022-02-13] MEDS: VANCOMYCIN 1,750 MG in SODIUM CHLORIDE 0.9% 500 ML 500 ML IVPB SCH ×2 (12:44→23:30)
[2022-02-13] MEDS: MORPHINE SULFATE 4 MG/ML SYRINGE IVP PRN ×2 (12:56→21:54)
[2022-02-13 14:32] LABS: Anion Gap 9.6 mmol/L (10.00-18.00); BUN/Creat Ratio 36.67 Ratio (12.00-20.00); Calcium 8.1 mg/dL (8.7-10.3); Carbon Dioxide 26.4 mmol/L (20.0-27.5); Non-African American GFR(CKD) 90.6 (60.0-200.0)
--- NOTE | 2022-02-13 15:54 | P.PCN ---
Date of Procedure: 02/13/22 Preoperative Diagnosis: right wrist septic arthritis Postoperative Diagnosis: same Procedure(s) Performed: right wrist aspiration Surgeon: Edgar Landeros Sawmilling Operator #1: Benjamín Pompa Estimated Blood Loss (ml): 0 Pathology: other (cell count; synovial crystals; aerobic; anaerobic; gram stain) Condition: stable Disposition: floor Indications for Procedure: elevated WBC edema; pain + culture Operative Findings: 3 cc serous fluid with pus Description of Procedure: The risk and benefits of the procedure were discussed the patient today at bedside, he is in good understanding and would like to proceed. Patient was in semirecumbent position, the wrist was prepped with 1 chlorarep. An 18-gauge needle was inserted over the dorsum of right wrist/hand and about 3 mL of fluid was aspirated from wrist/hand (3 cc of serous fluid including some pus). Patient tolerated procedure well, a bandage was placed after the aspiration. Fluid was then sent to the lab for anaerobic and aerobic cultures, cell count, Gram stain and crystal analysis
[2022-02-13 16:17] LABS: Basophils # (A) 0.02 X 10*3/uL (0.00-0.10); Basophils % (A) 0.1 %; Eosinophils # (A) 0.01 X 10*3/uL (0.04-0.35); Eosinophils % (A) 0.1 %; HCT 38.2 % (39.6-50.0); HGB 12.2 g/dL (13.0-17.0); Immature Grans, Automated 1.1 %; Lymphocytes # (A) 1.01 X 10*3/uL (0.90-5.00); Lymphocytes % (A) 5.1 %; MCH 29.9 pg (27.0-32.0); MCHC 31.9 g/dL (32.0-37.0); MCV 93.6 fL (80.0-97.0); Mean Platelet Volume 10.5 fL (9.5-12.2); Monocytes # (A) 0.59 X 10*3/uL (0.20-1.00); NRBC Per 100 WBC 0 /100 WBCS (0.0-0.0); Neutrophils # (A) 17.93 X 10*3/uL (1.80-7.70); Neutrophils % (A) 90.6 %; Platelet Count 184 X 10*3/uL (140-440); RBC 4.08 X 10*6/uL (4.40-5.60); RDW 14.2 % (11.5-14.5); WBC 19.78 X 10*3/uL (4.50-10.00)
[2022-02-13 16:18] LABS: RBC Morphology NORMAL
[2022-02-13] MEDS ORDERED: fentaNYL (PF) 50 MCG/ML 2 ML AMP ONE (19:22)
[2022-02-13] MEDS ORDERED: PROPOFOL 10 MG/ML 20 ML VIAL IV ONE (19:22)
[2022-02-13] MEDS ORDERED: IV FLUID CONTINUATION 1,000 ML IV ONE (19:25)
--- NOTE | 2022-02-13 22:47 | P.CONS ---
History of Present Illness - Reason for Consult Consult date: 02/13/22 bacteremia Requesting physician: Halina Zelaya - Chief Complaint right wrist pain x few days - History of Present Illness History of present illness : patient is a 61-year-old male with a past medical history significant for hypertension sleep apnea congestive heart failure rheumatoid arthritis and gout presenting to the hospital with consideration for pain to the right foot that has been there for about a week the patient denies having history of any trauma has been complaining of mostly diffuse duration of pain intensity almost 6-7 out of 10 and no radiation patient did have associated ankle swelling we did subsequent started having to notice pain and swelling to the right wrist area, with the symptoms patient was evaluated by the ER physician on arrival to the ER the patient was afebrile and no fever has been recorded subsequently patient did have a white count of 21.9 with a left shift sed rate was 28 creatinine was normal lactic acid was elevated urine was negative patient did have a chest x-ray borderline heart size small left effusion ankle x-ray no definite acute fracture or dislocation patient did have a wrist x-ray subcortical cyst about the wrist erosion of the ulnar styloid process and multiple areas of periarticular erosion generalized soft tissue swelling blood cultures came back positive with gram-positive cocci vancomycin was dated patient has been evaluated by orthopedics with concern for septic arthritis patient did have aspirate of the joint and infectious disease was consulted for further management of antibiotic therapy Review of system: CONSTITUTIONAL: Positive for weakness however denies high-grade fever. EYES: No complaint. ENT: No complaint. RESPIRATORY: No complaint. CARDIOVASCULAR: No complaint. GENITOURINARY: No complaint. GASTROINTESTINAL: No complaint. MUSCULOSKELETAL: As per history of present illness. INTEGUMENTARY: No complaint. PSYCHOLOGIC: No complaint. ENDOCRINE: No complaint. NEUROLOGIC: No complaint. Past medical history : Reviewed, documented below Past surgical history : Reviewed, documented below Social history: Reviewed, documented below Medications: Reviewed, as documented below EXAMINATION: Vital sigans= Reviewed and documented below GENERAL DESCRIPTION: Middle-aged male lying in bed, no distress. No tachypnea or accessory muscle of respiration use. HEENT: Shows Pallor , no scleral icterus. Oral mucous membrane is dry. NECK: Trachea central, no thyromegaly. LUNGS: Unlabored breathing. Clear to auscultation anteriorly. No wheeze or crackle. HEART: S1, S2, regular rate and rhythm. ABDOMEN: Soft, no tenderness , guarding or rigidity EXTREMITIES: Right wrist did have minimal swelling slightly tenderness to touch. SKIN: No rash, no masses palpable. NEUROLOGICAL: The patient is awake, alert, oriented x3, mood and affect normal. LABS AND RADIOLOGY: Reviewed results see below Assessment : Patient with gram-positive bacteremia in this patient presented to hospital with initially right ankle swelling and pain now with mostly pain and swelling to the right wrist area in this patient who did have history of underlying rheumatoid arthritis plain x-ray did show some bony destruction which could be related to underlying rheumatoid arthritis underlying septic arthritis not entirely excluded and likely the source of this bacteremia Plan: 1-vancomycin pharmacy to dose with a target trough of 15 while watching kidney function and Vanco trough closely. 2-blood cultures will be be document clearance of bacteremia We will follow on clinical condition and cultures to further adjust medication if needed Thank you for this consultation we will follow the patient along with you Past Medical History Past Medical History: Hypertension, Rheumatoid Arthritis (RA) History of Any Multi-Drug Resistant Organisms: None Reported Additional Past Surgical History / Comment(s): cataracts, colonoscopy Past Psychological History: No Psychological Hx Reported Smoking Status: Current every day smoker Past Alcohol Use History: None Reported Past Drug Use History: None Reported Medications and Allergies Home Medications Medication Instructions Recorded Confirmed Type Famotidine [Pepcid] 20 mg PO BID 02/12/22 02/12/22 History carvediloL [Coreg] 3.125 mg PO BID 02/12/22 02/12/22 History lisinopriL [Zestril] 5 mg PO DAILY 02/12/22 02/12/22 History predniSONE See Taper PO DAILY 02/12/22 02/12/22 History HYDROcodone/APAP 7.5-325MG [[place] 1 tab PO Q4H PRN #18 tab 02/13/22 Rx 7.5-325] Ibuprofen [Motrin] 600 mg PO Q6HR PRN #30 tab 02/13/22 Rx Allergies Allergy/AdvReac Type Severity Reaction Status Date / Time No Known Allergies Allergy Verified 02/12/22 10:47 Physical Exam Vitals: Vital Signs Temp Pulse Pulse Resp BP BP Pulse Ox 02/13/22 07:18 98.1 F 61 16 110/51 97 02/13/22 01:54 98.6 F 71 18 137/75 94 L 02/12/22 20:29 98.5 F 74 18 146/78 94 L 02/12/22 18:22 73 18 133/89 94 L 02/12/22 14:55 74 18 125/81 93 L Intake and Output 02/12/22 02/13/22 02/13/22 22:59 06:59 14:59 Intake Total 118 Output Total 550 200 Balance -550 -82 Intake: Oral 118 Output: Urine 550 200 Other: # Voids 0 Results CBC & Chem 7: 02/13/22 07:32 02/13/22 07:32 Labs: Abnormal Lab Results - Last 24 Hours (Table) 02/12/22 02/12/22 02/12/22 Range/Units 15:26 18:45 23:07 Anion Gap (10.00-18.00) mmol/L BUN (9.0-27.0) mg/dL BUN/Creatinine Ratio (12.00-20.00) Ratio Glucose (70-110) mg/dL Plasma Lactic Acid Gregorio 2.2 H* 2.2 H* 2.3 H* (0.7-2.0) mmol/L Calcium (8.7-10.3) mg/dL 02/13/22 02/13/22 Range/Units 01:45 07:32 Anion Gap 9.60 L (10.00-18.00) mmol/L BUN 33.0 H (9.0-27.0) mg/dL BUN/Creatinine Ratio 36.67 H (12.00-20.00) Ratio Glucose 121 H (70-110) mg/dL Plasma Lactic Acid Gregorio 2.2 H* (0.7-2.0) mmol/L Calcium 8.1 L (8.7-10.3) mg/dL Microbiology - Last 24 Hours (Table) 02/12/22 11:30 Blood Culture Gram Stain - Preliminary Blood Blood Culture - Preliminary Staphylococcus aureus 02/12/22 11:30 Blood Culture Gram Stain - Preliminary Blood 02/12/22 11:15 Blood Culture - Final Blood 02/12/22 11:30 Blood Culture - Final Blood
--- NOTE | 2022-02-13 23:45 | P.OP ---
Date of Procedure: 02/13/22 Preoperative Diagnosis: 1.) Right wrist septic arthritis Postoperative Diagnosis: 1.) Right wrist septic arthritis Procedure(s) Performed: 1.) Right wrist arthrotomy, radiocarpal, with exploration and drainage of deep infection Anesthesia: BARTOLO Surgeon: Edgar Landeros Pack Puller #1: Del Buckley Estimated Blood Loss (ml): 15 Pathology: other (Right wrist radiocarpal joint) Condition: stable Disposition: PACU Description of Procedure: This is a 61 year old male whom the orthopedic service was consulted for during his inpatient stay for increased right wrist pain, swelling and warmth. Wrist aspiration was performed at bedside and purulence was obtained upon radiocarpal aspiration therefore the decision was made emergently perform formal I&D in the operating room for right wrist septic arthritis. Risks and benefits of surgery were discussed with the patient including bleeding, damage to surrounding tissue, further infection, need for further surgery as well as risks of anesthesia including pulmonary embolism and even and the patient wished to proceed with surgical intervention. The patient was seen in the pre-operative area by myself. Consent and H&P were completed and updated. The correct extremity was marked in the pre-operative area by myself and all other questions were answered. Operative Narrative: The patient was brought to the operating room by the department of anesthesia. They remained on the portable stretcher and a rolling hand table was brought to the side of the operative extremity. Pre-operative time out was performed indicating the correct patient, procedure and laterality. All in the room agreed. The patient was on antibiotics for bacteremia prior to surgery. The patient was then drifted off to sleep by the department of anesthesia. A nonsterile tourniquet was then applied to the operative extremity and the right upper extremity was then prepped and draped in normal sterile fashion. Tourniquet was then inflated to 250mmHg. Longitudinal incision was made just ulnar to Coral's tubercle for a dorsal approach to the wrist. Blunt dissection was taken down through subcutaneous tissues. There was extensive tenosynovium around the 4th dorsal compartment consistent with rheumatoid arthritis which the patient is known to have. Distal 1/4 of the extensor retinaculum was incised and the extensor tendons were protected and swept ulnarly. A longitudinal capsular incision was made at the wrist joint and upon immediate incision/arthrotomy gross purulence was expressed from the radio carpal joint. Cultures were obtained and sent for lab analysis. The wrist was the manipulated to express additional purulence out of the wrist joint. 2L of sterile saline was then used to copiously irrigated both he radiocarpal and mid carpal joints. No further purulence was able to be expressed after irrigation. Radiocarpal joint was again visualized and arthritic changes were identified at the radioscaphoid articulation. The capsule was then left open and a thor drain was sutured into place to skin. Skin closure was performed with 4-0 nylon suture in a loose manner. Bulky dressing consisting of 4x4's, adaptic, cast padding and darya wrap was applied. Tourniquet was let down and the hand had immediate perfusion. The patient was then woken by the department of anesthesia and transferred to PACU in stable condition. Steven TUCKER was present for the case in its entirety and assisted in critical portions of the case and provided assistance in protecting vital neurovascular structures. Edgar Landeros D.O. Orthopedic Hand/Upper Extremity Surgeon
[2022-02-14] MEDS: KETOROLAC 15 MG/ML 1 ML VIAL IVP SCH ×3 (05:26→17:55)
[2022-02-14] MEDS: FUROSEMIDE 20 MG TAB PO SCH (07:49)
[2022-02-14] MEDS: lisinopriL 5 MG TAB PO SCH ×2 (07:49→07:50)
[2022-02-14] MEDS: HEPARIN SODIUM,PORCINE/PF 5,000 UNIT/0.5 ML SYRINGE SQ SCH ×2 (07:50→17:53)
[2022-02-14] MEDS: FAMOTIDINE 20 MG TAB PO SCH ×2 (07:50→21:45)
[2022-02-14] MEDS: carvediloL 3.125 MG TAB PO SCH ×2 (07:55→17:53)
[2022-02-14] MEDS ORDERED: VANCOMYCIN TROUGH DUE 1 EACH MISC MISCELLANE ONE (10:00)
[2022-02-14 10:29] LABS: Basophils % (A) 0 %; Eosinophils % (A) 0 %; HCT 40.5 % (39.0-53.0); HGB 12.9 gm/dL (13.0-17.5); Hypochromasia Slight; Lymphocytes % (A) 6 %; MCHC 31.8 g/dL (31.0-37.0); MCV 97.3 fL (80.0-100.0); Mean Platelet Volume 8.3; Monocytes # (A) 0.4 k/uL (0-1.0); Monocytes % (A) 2 %; Neutrophils # (A) 14.4 k/uL (1.3-7.7); Neutrophils % (A) 91 %; Platelet Count 173 k/uL (150-450); RBC 4.16 m/uL (4.30-5.90); RDW 13.8 % (11.5-15.5); WBC 15.9 k/uL (3.8-10.6)
--- NOTE | 2022-02-14 10:42 | P.PN ---
Subjective Progress Note Date: 02/14/22 Principal diagnosis: Status post right wrist arthrotomy, radiocarpal, with exploration and drainage of deep infection Patient evaluated at bedside, he is up sitting in bed and having breakfast. He notes the discomfort in the right wrist is significantly improved since yesterda y. The bandage remains intact. Currently denies any fevers or chills, shortness of breath, chest pain, nausea or vomiting. Objective - Vital Signs Vital signs: Vital Signs Temp 98.9 F 02/14/22 07:00 Pulse 69 02/14/22 07:00 Resp 18 02/14/22 08:05 BP 150/75 02/14/22 07:00 Pulse Ox 92 L 02/14/22 07:00 Intake & Output 02/13/22 02/14/22 02/14/22 18:59 06:59 18:59 Intake Total 118 900 Output Total 340 15 Balance -222 885 Intake: IV 900 Oral 118 Output: Urine 340 Estimated Blood Loss 15 Other: # Voids 2 - Exam Right upper extremity: Gurmeet bandage along with cast padding remains intact, no obvious drainage or satu ration. Patient is able to wiggle all the fingers with no difficulty. His sensation to light touch throughout the extremity is intact. Range of motion is intact at the shoulder and elbow, no deficits appreciated. Cap refills less than 3 seconds. - Labs CBC & Chem 7: 02/14/22 09:55 02/13/22 07:32 Labs: Abnormal Lab Results - Last 24 Hours (Table) 02/13/22 02/13/22 02/14/22 Range/Units 07:32 07:32 09:55 WBC 19.78 H 15.9 H (4.50-10.00) X 10*3/uL RBC 4.08 L 4.16 L (4.40-5.60) X 10*6/uL Hgb 12.2 L 12.9 L (13.0-17.0) g/dL Hct 38.2 L (39.6-50.0) % MCHC 31.9 L (32.0-37.0) g/dL Immature Gran # 0.22 H (0.00-0.04) X 10*3/uL Neutrophils # 17.93 H 14.4 H (1.80-7.70) X 10*3/uL Eosinophils # 0.01 L (0.04-0.35) X 10*3/uL Anion Gap 9.60 L (10.00-18.00) mmol/L BUN 33.0 H (9.0-27.0) mg/dL BUN/Creatinine Ratio 36.67 H (12.00-20.00) Ratio Glucose 121 H (70-110) mg/dL Calcium 8.1 L (8.7-10.3) mg/dL Microbiology - Last 24 Hours (Table) 02/13/22 14:44 Gram Stain - Preliminary Synovial Fluid Body Fluid Culture - Preliminary Presumptive Staph aureus 02/13/22 19:45 Anaerobic Culture - Preliminary Wrist - Right 02/13/22 19:45 Wound Culture - Preliminary Wrist - Right 02/13/22 14:41 Anaerobic Culture - Preliminary Wrist - Right 02/12/22 11:30 Blood Culture Gram Stain - Preliminary Blood Blood Culture - Preliminary Staphylococcus aureus 02/12/22 11:30 Blood Culture Gram Stain - Preliminary Blood Assessment and Plan Assessment: Postoperative day #1 status post right wrist arthrotomy, radiocarpal, with exploration and drainage of deep infection Plan: Pain control, utilize oral medication as needed Dressing instructions, will remove dressing along with drain on 02/15/2021 Limit strenuous activity with the right upper extremity Recommend icing and elevating for symptomatically GI and DVT prophylaxis per primary medical service Other diagnostic medical sonographer recommendations Synovial fluid analysis showing presumptive staph aureus Further recommendations to follow Time with Patient: Less than 30
[2022-02-14] MEDS: VANCOMYCIN 1,750 MG in SODIUM CHLORIDE 0.9% 500 ML 500 ML IVPB SCH (10:57)
[2022-02-14] MEDS: FUROSEMIDE 10 MG/ML 2 ML VIAL IV SCH ×2 (11:29→17:52)
--- NOTE | 2022-02-14 16:43 | P.PN ---
Progress Note - Text Progress Note Date: 02/14/22 Presenting complaint: Right hand pain Hospital course: 61-year-old man, follows with Dr. Kulkarni with hypertension, severe obstructive sleep apnea, history of congestive heart failure with unspecified ejection fraction, rheumatoid arthritis, gout presented with joint swelling and pain. Patient says that this has been present for approximately 1 week, initially went to the hospital to get treated for this, was started with IV steroids, then discharged on by mouth steroids and colchicine. Furthermore, his hydrochlorothiazide was discontinued and replaced with Lasix and carvedilol. However, he apparently did not start taking his oral steroids, and his ankle swelling and pain returned, in addition to now having pain in the right wrist as well with limited mobility. He also reports some increased dorsal foot redness, heat. He denies fevers, chills, nausea, vomiting, chest pain, palpitations, sick to be, presyncope, cough, dyspnea, abdominal pain, constipation, diarrhea, dysuria, dyschezia, numbness/weakness of extremities. In the emergency room, patient is afebrile, 116/77, 96% on room air, heart rate 73. CBC is markable for leukocytosis to 21.9, chemistries remarkable for elevated BUN to 32. LFTs are unremarkable. ESR/CRP are 28/22. Troponin was negative. BNP was 379. UA shows trace protein, otherwise unremarkable. Patient had foot and ankle x-ray which showed arthropathy of the first MTP bilaterally, no erosive changes. Patient had hand and wrist x-ray, showing subcortical cyst about the wrists, rotation of the ulnar styloid process and multiple areas of periarticular erosion with generalized soft tissue swelling. February 14: I assumed care of the patient today. Patient yesterday underwent I&D of the right wrist. Significant amount of purulence was removed including tenosynovitis was found. Pain is better. Right hand in a dressing. No nausea vomiting. Eating. Had a bowel movement. Lower extremity swelling which is relatively new he says. No shortness of breath. IV Lasix ordered for fluid overload. IV vancomycin Active Medications Hydrocodone Bitart/Acetaminophen (Hydrocodone/Apap 7.5-325mg 1 Each Tab) 1 each PO Q6HR PRN PRN Reason: Pain Carvedilol (Carvedilol 3.125 Mg Tab) 3.125 mg PO BID-W/MEALS [facility] Last Admin: 02/14/22 07:55 Dose: 3.125 mg Documented by: Famotidine (Famotidine 20 Mg Tab) 20 mg PO BID [facility] Last Admin: 02/14/22 07:50 Dose: 20 mg Documented by: Furosemide (Furosemide 20 Mg Tab) 20 mg PO DAILY [facility] Last Admin: 02/14/22 07:49 Dose: 20 mg Documented by: Furosemide (Furosemide 10 Mg/Ml 2 Ml Vial) 20 mg IV Q6HR [facility] Stop: 02/14/22 18:01 Last Admin: 02/14/22 11:29 Dose: 20 mg Documented by: Heparin Sodium (Porcine) (Heparin Sodium,Porcine/Pf 5,000 Unit/0.5 Ml Syringe) 5,000 unit SQ Q8HR [facility] Last Admin: 02/14/22 07:50 Dose: 5,000 unit Documented by: Vancomycin HCl 1,750 mg/ (Sodium Chloride) 500 mls @ 167 mls/hr IVPB Q12H [facility] Last Admin: 02/14/22 10:57 Dose: 167 mls/hr Documented by: Ketorolac Tromethamine (Ketorolac 15 Mg/Ml 1 Ml Vial) 15 mg IVP Q6HR [facility] Stop: 02/15/22 12:51 Last Admin: 02/14/22 11:30 Dose: 15 mg Documented by: Lisinopril (Lisinopril 5 Mg Tab) 5 mg PO DAILY [facility] Last Admin: 02/14/22 07:50 Dose: 5 mg Documented by: Morphine Sulfate (Morphine Sulfate 4 Mg/Ml Syringe) 4 mg IVP Q4HR PRN PRN Reason: Pain Last Admin: 02/13/22 21:54 Dose: 4 mg Documented by: Naloxone HCl (Naloxone 0.4 Mg/Ml 1 Ml Vial) 0.2 mg IV Q2M PRN PRN Reason: Opioid Reversal On examination: VITAL SIGNS: 98, 40, 18, 125/69, 93% room air GENERAL APPEARANCE: BMI 36.5, laying but awake, tired HEENT: Normal external appearance of nose and ear. Oral cavity normal EYES: Pupils equal. Conjunctiva normal. NECK: JVD not raised. Mass not palpable. RESPIRATORY: Respiratory effort normal. Lungs clear to auscultation. CARDIOVASCULAR: First and second sounds normal. Edema present. ABDOMEN: Soft. Liver and spleen not palpable. No tenderness. No mass palpable. MUSCULAR skeletal: Right hand in a dressing. PSYCHIATRY: Alert and oriented x3. Mood and affect normal. Investigations: White count 15.9 hemoglobin 12.9 platelets 173 potassium 4 creatinine 0.9 Blood culture [February 12]: MSSA. Assessment and plan: -Acute septic arthritis of the right wrist. Cultures positive for MSSA. Status post I&D, by Dr. Landeros on February 13. IV vancomycin. Follow with ID -Sepsis with blood cultures positive for MSSA IV vancomycin -Lactic acidosis from sepsis: Improved -Normocytic anemia might of chronic disease from underlying RA -Essential hypertension Zestril 5 mg daily. Coreg 3.125 mg twice a day -GERD Pepcid 20 mg twice a day -Chronic rheumatoid arthritis Nurys Mix Continue IV vancomycin. Patient will IV Toradol. Other medications to continue. Care was discussed with the patient. Follow up with Joni 90.
--- NOTE | 2022-02-14 17:50 | P.PN ---
Subjective Progress Note Date: 02/14/22 Principal diagnosis: MSSA bacteremia and right wrist septic arthritis Patient is a 61 year old male with a past medical history significant for rheumatoid arthritis presented to the hospital with right wrist pain swelling in this patient who did have evidence of Staphylococcus aureus bacteremia and concerning for the right wrist septic arthritis, patient was taken to the OR last night and the patient is status post right wrist part of a with exploration and drainage of deep infection. On today's evaluation that is 02/14/2022, the patient denies having any fever or any chills, the patient pain to the right wrist is currently controlled, the patient denies having any chest pain shortness of breath or cough no abdominal pain and no diarrhea Objective - Vital Signs Vital signs: Vital Signs Temp 98 F 02/14/22 15:00 Pulse 42 L 02/14/22 15:00 Resp 18 02/14/22 15:00 BP 125/69 02/14/22 15:00 Pulse Ox 93 L 02/14/22 15:00 Intake & Output 02/13/22 02/14/22 02/14/22 18:59 06:59 18:59 Intake Total 118 900 360 Output Total 340 15 400 Balance -222 885 -40 Intake: IV 900 Oral 118 360 Output: Urine 340 400 Estimated Blood Loss 15 Other: # Voids 2 0 - Exam GENERAL DESCRIPTION: Middle-aged male lying in bed in no distress RESPIRATORY SYSTEM: Unlabored breathing , decreased breath sounds at bases HEART: S1 S2 regular rate and rhythm , ABDOMEN: Soft , no tenderness EXTREMITIES: Right wrist is currently dressed in or dressing no drainage on the dressing - Labs CBC & Chem 7: 02/14/22 09:55 02/13/22 07:32 Labs: Abnormal Lab Results - Last 24 Hours (Table) 02/14/22 Range/Units 09:55 WBC 15.9 H (3.8-10.6) k/uL RBC 4.16 L (4.30-5.90) m/uL Hgb 12.9 L (13.0-17.5) gm/dL Neutrophils # 14.4 H (1.3-7.7) k/uL Microbiology - Last 24 Hours (Table) 02/12/22 11:30 Blood Culture Gram Stain - Final Blood Blood Culture - Final Staphylococcus aureus 02/12/22 11:30 Blood Culture Gram Stain - Final Blood Blood Culture - Final Staphylococcus aureus 02/13/22 14:44 Gram Stain - Preliminary Synovial Fluid Body Fluid Culture - Preliminary Presumptive Staph aureus 02/13/22 19:45 Anaerobic Culture - Preliminary Wrist - Right 02/13/22 19:45 Wound Culture - Preliminary Wrist - Right 02/13/22 14:41 Anaerobic Culture - Preliminary Wrist - Right Assessment and Plan (1) Positive blood culture Current Visit: Yes Status: Acute Code(s): R78.81 - BACTEREMIA SNOMED Code(s): 205031659 Plan: 1patient with gram-positive bacteremia which has been finalized with MSSA, source is likely right wrist septic arthritis with deep infection in this patient who is status post right wrist arthrotomy and drainage of the deep abscess completed on 02/13/2022 2-repeat blood cultures have been obtained this morning and those will be followed to document clearance of bacteremia 3-discontinue vancomycin 4-start the patient cefazolin 2 g every 8 hours Time with Patient: Less than 30
[2022-02-14] MEDS: MORPHINE SULFATE 4 MG/ML SYRINGE IVP PRN (18:11)
[2022-02-15] MEDS: HEPARIN SODIUM,PORCINE/PF 5,000 UNIT/0.5 ML SYRINGE SQ SCH ×4 (00:41→20:49)
[2022-02-15] MEDS: KETOROLAC 15 MG/ML 1 ML VIAL IVP SCH ×3 (00:41→11:59)
[2022-02-15 06:27] LABS: Basophils % (A) 0 %; Eosinophils # (A) 0.1 k/uL (0-0.7); Eosinophils % (A) 0 %; HGB 12.4 gm/dL (13.0-17.5); Lymphocytes # (A) 1.2 k/uL (1.0-4.8); Lymphocytes % (A) 10 %; MCH 30.7 pg (25.0-35.0); MCHC 31.8 g/dL (31.0-37.0); MCV 96.5 fL (80.0-100.0); Mean Platelet Volume 8.2; Monocytes # (A) 0.4 k/uL (0-1.0); Monocytes % (A) 3 %; Neutrophils # (A) 10.7 k/uL (1.3-7.7); Neutrophils % (A) 87 %; Platelet Count 175 k/uL (150-450); RBC 4.05 m/uL (4.30-5.90); RDW 13.8 % (11.5-15.5); WBC 12.3 k/uL (3.8-10.6)
[2022-02-15] MEDS: carvediloL 3.125 MG TAB PO SCH ×2 (07:55→18:43)
[2022-02-15] MEDS: lisinopriL 5 MG TAB PO SCH (07:55)
[2022-02-15] MEDS: FAMOTIDINE 20 MG TAB PO SCH ×2 (07:55→20:49)
[2022-02-15] MEDS: FUROSEMIDE 20 MG TAB PO SCH (07:55)
--- NOTE | 2022-02-15 11:59 | P.PN ---
Subjective Progress Note Date: 02/15/22 Principal diagnosis: 1.) Right wrist septic arthritis Patient was seen at bedside this morning sitting up. Patient states he is feeling a little bit better than yesterday. Patient notes he is still having a lot of swelling in both ankles. Patient feels that his right hand/wrist is getting a little better, however, patient notes that there is still moderate amount of swelling in his hand. Patient states that he is able to move his digits in his right hand a little bit better. Patient says he is having less pain than he was yesterday in his hand. Patient denies chest pain, fever, shortness of breath, nausea, vomiting, change in vision, loss of bowel/bladder control. Objective - Vital Signs Vital signs: Vital Signs Temp 98.7 F 02/15/22 07:00 Pulse 67 02/15/22 07:00 Resp 18 02/15/22 08:16 BP 151/79 02/15/22 07:00 Pulse Ox 94 L 02/15/22 07:00 Intake & Output 02/14/22 02/15/22 02/15/22 18:59 06:59 18:59 Intake Total 480 118 Output Total 400 1050 360 Balance 80 -1050 -242 Intake: Oral 480 118 Output: Urine 400 1050 360 Other: Voiding Method Toilet # Voids 0 2 - Exam Right hand/wrist: Gurmeet bandage, cast padding, dressing was removed and right hand/wrist. There was moderate amount of serosanguineous discharge and some puslike discharge on the underside of the dressing. Drain was pulled. There is moderate amount of swelling present in the dorsal side of the hand/wrist. Negative for any ecchymosis. Sutures are intact and in good alignment. New Adaptic, Telfa, 4 x 4's and Kerlix was placed over incision. Patient does have some moderate tenderness to palpation along the dorsal side of the hand/wrist near incision. Patient is nontender to palpation throughout rest of exam. Sensation is equal, symmetric, bilaterally intact throughout the upper extremities. Patient has good range of motion in digits of right upper extremity. Patient does have some limited range of motion in the right wrist, due to swelling. Patient is full range of motion in right elbow in flexion/extension. Analytics Developer strength and right hand 3+/5. Resisted right wrist flexion/extension 3+/5. Negative Homans bilaterally. Radial pulses intact, bilaterally. Cap refill under 3 seconds in digits in upper extremities. - Labs CBC & Chem 7: 02/15/22 05:55 02/13/22 07:32 Labs: Abnormal Lab Results - Last 24 Hours (Table) 02/15/22 Range/Units 05:55 WBC 12.3 H (3.8-10.6) k/uL RBC 4.05 L (4.30-5.90) m/uL Hgb 12.4 L (13.0-17.5) gm/dL Neutrophils # 10.7 H (1.3-7.7) k/uL Microbiology - Last 24 Hours (Table) 02/13/22 14:44 Gram Stain - Final Synovial Fluid Body Fluid Culture - Final Staphylococcus aureus 02/13/22 19:45 Gram Stain - Preliminary Wrist - Right Wound Culture - Preliminary Presumptive Staph aureus 02/14/22 09:55 Blood Culture Gram Stain - Preliminary Blood 02/12/22 11:30 Blood Culture Gram Stain - Final Blood Blood Culture - Final Staphylococcus aureus 02/14/22 09:55 Blood Culture - Final Blood 02/12/22 11:30 Blood Culture Gram Stain - Final Blood Blood Culture - Final Staphylococcus aureus 02/13/22 19:45 Anaerobic Culture - Preliminary Wrist - Right Assessment and Plan Assessment: 1.) Right wrist septic arthritis Postoperative day 2 status post Right wrist arthrotomy, radiocarpal, with exploration and drainage of deep infection Plan: 1. Right wrist septic arthritis - surgery performed 02/13/2022 - Right wrist arthrotomy, radiocarpal, with exploration and drainage of deep infection. Patient stable at bedside this morning sitting up. Gurmeet bandage cast padding/dressing were removed from wrist. Drain was pulled. Adaptic, Telfa, 4 x 4's and Kerlix was wrapped over incision. Final blood cultures show MSSA. We will await final cultures taken from the right wrist during surgery. At this time we're awaiting PICC line placement. We'll continue follow patient while in hospital 2. Appreciate medical and infectious disease management - cefazolin 3. Pain management - [place]; Toradol 4. DVT prophylaxis - heparin 5. GI prophylaxis - mechanical 6. Patient encouraged to move digits in RUE Time with Patient: Less than 30
[2022-02-15] MEDS: FUROSEMIDE 10 MG/ML 2 ML VIAL IV SCH ×2 (12:00→16:02)
[2022-02-15] MEDS: MORPHINE SULFATE 4 MG/ML SYRINGE IVP PRN ×2 (16:06→20:49)
--- NOTE | 2022-02-15 16:33 | P.PN ---
Subjective Progress Note Date: 02/15/22 Principal diagnosis: MSSA bacteremia and right wrist septic arthritis Patient is a 61 year old male with a past medical history significant for rheumatoid arthritis presented to the hospital with right wrist pain swelling in this patient who did have evidence of Staphylococcus aureus bacteremia and concerning for the right wrist septic arthritis, patient was taken to the OR last night and the patient is status post right wrist part of a with exploration and drainage of deep infection. On today's evaluation that is 02/15/2022, the patient remains to be afebrile, th e patient pain to the right wrist is currently controlled, the patient denies chest pain shortness of breath or cough , the patient denies abdominal pain and no diarrhea Objective - Vital Signs Vital signs: Vital Signs Temp 98.7 F 02/15/22 07:00 Pulse 67 02/15/22 07:00 Resp 18 02/15/22 08:16 BP 151/79 02/15/22 07:00 Pulse Ox 94 L 02/15/22 07:00 Intake & Output 02/14/22 02/15/22 02/15/22 18:59 06:59 18:59 Intake Total 480 118 Output Total 400 1050 360 Balance 80 -1050 -242 Intake: Oral 480 118 Output: Urine 400 1050 360 Other: Voiding Method Toilet # Voids 0 2 - Exam GENERAL DESCRIPTION: Middle-aged male lying in bed in no distress RESPIRATORY SYSTEM: Unlabored breathing , decreased breath sounds at bases HEART: S1 S2 regular rate and rhythm , ABDOMEN: Soft , no tenderness EXTREMITIES: Right wrist is currently dressed in or dressing no drainage on the dressing - Labs CBC & Chem 7: 02/15/22 05:55 02/13/22 07:32 Labs: Abnormal Lab Results - Last 24 Hours (Table) 02/15/22 Range/Units 05:55 WBC 12.3 H (3.8-10.6) k/uL RBC 4.05 L (4.30-5.90) m/uL Hgb 12.4 L (13.0-17.5) gm/dL Neutrophils # 10.7 H (1.3-7.7) k/uL Microbiology - Last 24 Hours (Table) 02/13/22 14:44 Gram Stain - Final Synovial Fluid Body Fluid Culture - Final Staphylococcus aureus 02/13/22 19:45 Gram Stain - Preliminary Wrist - Right Wound Culture - Preliminary Presumptive Staph aureus 02/14/22 09:55 Blood Culture Gram Stain - Preliminary Blood 02/12/22 11:30 Blood Culture Gram Stain - Final Blood Blood Culture - Final Staphylococcus aureus 02/14/22 09:55 Blood Culture - Final Blood 02/12/22 11:30 Blood Culture Gram Stain - Final Blood Blood Culture - Final Staphylococcus aureus Assessment and Plan (1) Positive blood culture Current Visit: Yes Status: Acute Code(s): R78.81 - BACTEREMIA SNOMED Code(s): 025522046 Plan: 1patient with gram-positive bacteremia which has been finalized with MSSA, source is likely right wrist septic arthritis with deep infection in this patient who is status post right wrist arthrotomy and drainage of the deep abscess completed on 02/13/2022 2-blood cultures will be repeated daily truck been clinically bacteremia culture from the 02/15/2020 so far positive 3continue the patient cefazolin 2 g every 8 hours Time with Patient: Less than 30
--- NOTE | 2022-02-15 17:07 | ECHOF ---
Referral Reason:bacteremia, r/o vegetation MEASUREMENTS -------- HEIGHT: 172.7 cm WEIGHT: 108.9 kg BP: 110/51 RVIDd: 4.0 cm (< 3.3) IVSd: 1.6 cm (0.6 - 1.1) LVIDd: 4.2 cm (3.9 - 5.3) LVPWd: 1.4 cm (0.6 - 1.1) IVSs: 2.1 cm LVIDs: 2.3 cm LVPWs: 2.1 cm LAESV Index (A-L): 24.59 ml/m Ao Diam: 3.9 cm (2.0 - 3.7) AV Cusp: 2.0 cm (1.5 - 2.6) LA Diam: 3.4 cm (2.7 - 3.8) MV EXCURSION: 13.171 mm (> 18.000) MV EF SLOPE: 56 mm/s (70 - 150) EPSS: 0.4 cm MV E Neo: 1.14 m/s MV DecT: 121 ms MV A Neo: 0.60 m/s MV E/A Ratio: 1.90 RAP: 5.00 mmHg RVSP: 24.91 mmHg FINDINGS -------- Sinus rhythm. This was a technically difficult study with suboptimal views. The left ventricular size is normal. There is moderate concentric left ventricular hypertrophy. O verall left ventricular systolic function is normal with, an EF between 55 - 60 %. The right ventricle is moderately enlarged. Normal LA size by volume 22+/-6 ml/m2. The right atrium was not well visualized. 5.0mg of Lumason was utilized for enhancement of images Interatrial and interventricular septum intact. There is mild aortic valve sclerosis. There is no evidence of aortic regurgitation. There is no e vidence of aortic stenosis. Mild mitral regurgitation is present. Mild tricuspid regurgitation present. There is no evidence of pulmonary hypertension. The right v entricular systolic pressure, as measured by Doppler, is 24.91mmHg. There is no pulmonic regurgitation present. The aortic root size is normal. IVC Not well visulized. Echo free space represents a pericardial fat pad. There is no pericardial effusion. CONCLUSIONS -------- 1. The left ventricular size is normal. 2. There is moderate concentric left ventricular hypertrophy. 3. Overall left ventricular systolic function is normal with, an EF between 55 - 60 %. 4. The right ventricle is moderately enlarged. 5. There is mild aortic valve sclerosis. 6. Mild mitral regurgitation is present. 7. Mild tricuspid regurgitation present. CAKE FROSTER: Kimberley López RDCS
--- NOTE | 2022-02-15 17:39 | P.PN ---
Progress Note - Text Progress Note Date: 02/15/22 Presenting complaint: Right hand pain Hospital course: 61-year-old man, follows with Dr. Kulkarni with hypertension, severe obstructive sleep apnea, history of congestive heart failure with unspecified ejection fraction, rheumatoid arthritis, gout presented with joint swelling and pain. Patient says that this has been present for approximately 1 week, initially went to the hospital to get treated for this, was started with IV steroids, then discharged on by mouth steroids and colchicine. Furthermore, his hydrochlorothiazide was discontinued and replaced with Lasix and carvedilol. However, he apparently did not start taking his oral steroids, and his ankle swelling and pain returned, in addition to now having pain in the right wrist as well with limited mobility. He also reports some increased dorsal foot redness, heat. He denies fevers, chills, nausea, vomiting, chest pain, palpitations, sick to be, presyncope, cough, dyspnea, abdominal pain, constipation, diarrhea, dysuria, dyschezia, numbness/weakness of extremities. In the emergency room, patient is afebrile, 116/77, 96% on room air, heart rate 73. CBC is markable for leukocytosis to 21.9, chemistries remarkable for elevated BUN to 32. LFTs are unremarkable. ESR/CRP are 28/22. Troponin was negative. BNP was 379. UA shows trace protein, otherwise unremarkable. Patient had foot and ankle x-ray which showed arthropathy of the first MTP bilaterally, no erosive changes. Patient had hand and wrist x-ray, showing subcortical cyst about the wrists, rotation of the ulnar styloid process and multiple areas of periarticular erosion with generalized soft tissue swelling. February 14: I assumed care of the patient today. Patient yesterday underwent I&D of the right wrist. Significant amount of purulence was removed including tenosynovitis was found. Pain is better. Right hand in a dressing. No nausea vomiting. Eating. Had a bowel movement. Lower extremity swelling which is relatively new he says. No shortness of breath. IV Lasix ordered for fluid overload. IV vancomycin February 15: Having pain in the right hand. No dressing. Oral intake good. Had a bowel movement. Antibiotic changed to IV Ancef. Active Medications Hydrocodone Bitart/Acetaminophen (Hydrocodone/Apap 7.5-325mg 1 Each Tab) 1 each PO Q6HR PRN PRN Reason: Pain Carvedilol (Carvedilol 3.125 Mg Tab) 3.125 mg PO BID-W/MEALS PENDING SALE TO [facility] Last Admin: 02/15/22 07:55 Dose: 3.125 mg Documented by: Famotidine (Famotidine 20 Mg Tab) 20 mg PO BID [facility] Last Admin: 02/15/22 07:55 Dose: 20 mg Documented by: Furosemide (Furosemide 20 Mg Tab) 20 mg PO DAILY [facility] Last Admin: 02/15/22 07:55 Dose: 20 mg Documented by: Heparin Sodium (Porcine) (Heparin Sodium,Porcine/Pf 5,000 Unit/0.5 Ml Syringe) 5,000 unit SQ Q8HR [facility] Last Admin: 02/15/22 16:06 Dose: 5,000 unit Documented by: Cefazolin Sodium 2 gm/ Sodium (Chloride) 50 mls @ 100 mls/hr IVPB Q8HR [facility] TO [facility]; Protocol Last Admin: 02/15/22 16:02 Dose: 100 mls/hr Documented by: Lisinopril (Lisinopril 5 Mg Tab) 5 mg PO DAILY [facility] Last Admin: 02/15/22 07:55 Dose: 5 mg Documented by: Morphine Sulfate (Morphine Sulfate 4 Mg/Ml Syringe) 4 mg IVP Q4HR PRN PRN Reason: Pain Last Admin: 02/15/22 16:06 Dose: 4 mg Documented by: Naloxone HCl (Naloxone 0.4 Mg/Ml 1 Ml Vial) 0.2 mg IV Q2M PRN PRN Reason: Opioid Reversal On examination: VITAL SIGNS: 98.3, 67, 18, 151/79, 94% room air GENERAL APPEARANCE: Laying in bed, awake HEENT: Normal external appearance of nose and ear. Oral cavity normal EYES: Pupils equal. Conjunctiva normal. NECK: JVD not raised. Mass not palpable. RESPIRATORY: Respiratory effort normal. Lungs clear to auscultation. CARDIOVASCULAR: First and second sounds normal. Edema present. ABDOMEN: Soft. Liver and spleen not palpable. No tenderness. No mass palpable. MUSCULAR skeletal: Right hand in a dressing. PSYCHIATRY: Alert and oriented x3. Mood and affect normal. Investigations: February 15: White count 12.3 hemoglobin 12.4 platelets 175 White count 15.9 hemoglobin 12.9 platelets 173 potassium 4 creatinine 0.9 Blood culture [February 12]: MSSA. [February 14: Positive Assessment and plan: -Acute septic arthritis of the right wrist. Cultures positive for MSSA.: Short respond Status post I&D, by Dr. Landeros on February 13. IV Ancef Follow with ID -Sepsis with repeat blood cultures from February 14 positive for MSSA: Slow to respond IV Ancef -Lactic acidosis from sepsis: Improved -Normocytic anemia might of chronic disease from underlying RA -Essential hypertension Zestril 5 mg daily. Coreg 3.125 mg twice a day -GERD Pepcid 20 mg twice a day -Chronic rheumatoid arthritis Nurys Mix IV Ancef. IV Toradol. Other medications to continue. Care was discussed with the patient. Follow-up with ID and orthopedic.
[2022-02-16] MEDS: HYDROcodone/APAP 7.5-325MG 1 EACH TAB PO PRN ×4 (01:44→21:27)
[2022-02-16 05:15] LABS: Basophils % (A) 0 %; Eosinophils # (A) 0.1 k/uL (0-0.7); Eosinophils % (A) 1 %; HCT 39.5 % (39.0-53.0); HGB 12.7 gm/dL (13.0-17.5); Lymphocytes # (A) 1.3 k/uL (1.0-4.8); Lymphocytes % (A) 12 %; MCHC 32.2 g/dL (31.0-37.0); MCV 96.1 fL (80.0-100.0); Mean Platelet Volume 8.2; Monocytes # (A) 0.2 k/uL (0-1.0); Monocytes % (A) 2 %; Neutrophils # (A) 9.2 k/uL (1.3-7.7); Neutrophils % (A) 85 %; Platelet Count 196 k/uL (150-450); RBC 4.11 m/uL (4.30-5.90); RDW 14.4 % (11.5-15.5); WBC 10.8 k/uL (3.8-10.6)
[2022-02-16] MEDS: FAMOTIDINE 20 MG TAB PO SCH ×2 (07:58→19:51)
[2022-02-16] MEDS: lisinopriL 5 MG TAB PO SCH (07:58)
[2022-02-16] MEDS: FUROSEMIDE 20 MG TAB PO SCH (07:58)
[2022-02-16] MEDS: carvediloL 3.125 MG TAB PO SCH ×2 (07:58→17:22)
[2022-02-16] MEDS: HEPARIN SODIUM,PORCINE/PF 5,000 UNIT/0.5 ML SYRINGE SQ SCH ×3 (07:59→23:56)
--- NOTE | 2022-02-16 11:04 | P.PN ---
Subjective Progress Note Date: 02/16/22 Principal diagnosis: 1.) Right wrist septic arthritis s/p arthrotomy with incision, drainage, irrigation, and debridement. Pt s/e at bedside this morning. Doing well, wrist pain still improving compared to pre-op exam. Able to flex/extend wrist without much pain. Started warm soapy soaks last night. Objective - Vital Signs Vital signs: Vital Signs Temp 98.1 F 02/16/22 07:10 Pulse 70 02/16/22 07:10 Resp 17 02/16/22 08:05 BP 126/79 02/16/22 07:10 Pulse Ox 96 02/16/22 07:10 Intake & Output 02/15/22 02/16/22 02/16/22 18:59 06:59 18:59 Intake Total 416 Output Total 1400 Balance -984 Intake: Oral 416 Output: Urine 1400 Other: Voiding Method Toilet Toilet Urinal # Voids 2 1 - Exam RUE: AIN/PIN/R/U/M motor intact. SILT R/U/M distribution. Longitudinal incision loosely approximated with sutures intact. Wound continuing to drain a small amount of purulence that was present on dressing. No further purulence able to be expressed with compression. Clinically improved appearance of wound vs yeste rday. Improving erythema, warmth around wrist. NTTP over dorsal/volar hand. 0/5 [place] signs all digits. - Labs CBC & Chem 7: 02/16/22 04:55 02/13/22 07:32 Labs: Abnormal Lab Results - Last 24 Hours (Table) 02/16/22 02/16/22 Range/Units 04:55 04:55 WBC 10.8 H (3.8-10.6) k/uL RBC 4.11 L (4.30-5.90) m/uL Hgb 12.7 L (13.0-17.5) gm/dL Neutrophils # 9.2 H (1.3-7.7) k/uL Procalcitonin 0.44 H (0.02-0.09) ng/mL Microbiology - Last 24 Hours (Table) 02/15/22 05:55 Blood Culture Gram Stain - Preliminary Blood 02/15/22 05:55 Blood Culture - Final Blood 02/13/22 14:44 Gram Stain - Final Synovial Fluid Body Fluid Culture - Final Staphylococcus aureus 02/13/22 19:45 Gram Stain - Preliminary Wrist - Right Wound Culture - Preliminary Presumptive Staph aureus 02/14/22 09:55 Blood Culture Gram Stain - Preliminary Blood 02/12/22 11:30 Blood Culture Gram Stain - Final Blood Blood Culture - Final Staphylococcus aureus Assessment and Plan Assessment: 1.) Right wrist septic arthritis 2.) Bacteremia Plan: 1.) May discontinue NPO status, patient is clinically improving. No surgical intervention needed at this time, will still require monitoring over next 24-48 hours to determine if repeat I&D is needed. One suture was removed at bedside today to allow increased drainage. May continue IV antibiotics and soapy soaks. Will make NPO at midnight and re-evaluation tomorrow morning to determine if any further surgical intervention will be required. If wound and clinical symptoms continue to improve, patient will likely be orthopedically stable for DC Friday. --Edgar Landeros DO Orthopedic Surgeon Time with Patient: Less than 30
--- NOTE | 2022-02-16 13:27 | P.PN ---
Progress Note - Text Progress Note Date: 02/16/22 Presenting complaint: Right hand pain Hospital course: 61-year-old man, follows with Dr. Kulkarni with hypertension, severe obstructive sleep apnea, history of congestive heart failure with unspecified ejection fraction, rheumatoid arthritis, gout presented with joint swelling and pain. Patient says that this has been present for approximately 1 week, initially went to the hospital to get treated for this, was started with IV steroids, then discharged on by mouth steroids and colchicine. Furthermore, his hydrochlorothiazide was discontinued and replaced with Lasix and carvedilol. However, he apparently did not start taking his oral steroids, and his ankle swelling and pain returned, in addition to now having pain in the right wrist as well with limited mobility. He also reports some increased dorsal foot redness, heat. He denies fevers, chills, nausea, vomiting, chest pain, palpitations, sick to be, presyncope, cough, dyspnea, abdominal pain, constipation, diarrhea, dysuria, dyschezia, numbness/weakness of extremities. In the emergency room, patient is afebrile, 116/77, 96% on room air, heart rate 73. CBC is markable for leukocytosis to 21.9, chemistries remarkable for elevated BUN to 32. LFTs are unremarkable. ESR/CRP are 28/22. Troponin was negative. BNP was 379. UA shows trace protein, otherwise unremarkable. Patient had foot and ankle x-ray which showed arthropathy of the first MTP bilaterally, no erosive changes. Patient had hand and wrist x-ray, showing subcortical cyst about the wrists, rotation of the ulnar styloid process and multiple areas of periarticular erosion with generalized soft tissue swelling. February 14: I assumed care of the patient today. Patient yesterday underwent I&D of the right wrist. Significant amount of purulence was removed including tenosynovitis was found. Pain is better. Right hand in a dressing. No nausea vomiting. Eating. Had a bowel movement. Lower extremity swelling which is relatively new he says. No shortness of breath. IV Lasix ordered for fluid overload. IV vancomycin February 15: Having pain in the right hand. No dressing. Oral intake good. Had a bowel movement. Antibiotic changed to IV Ancef. February 16: Drain was removed from the right hand surgical site yesterday. Couple of stitches were removed orthopedic today. Some pain present. Discussed with the patient to sit up and ambulate. Family present. On IV Ancef. We will add naproxen finding inflammatory affect. Patient has several rheumatoid nodules. Often often the overlying skin breaks down. That's likely the portal of entry for bacteria. Blood cultures remain positive. We'll consider doing NATHANIEL. Active Medications Hydrocodone Bitart/Acetaminophen (Hydrocodone/Apap 7.5-325mg 1 Each Tab) 1 each PO Q6HR PRN PRN Reason: Pain Last Admin: 02/16/22 08:09 Dose: 1 each Documented by: Carvedilol (Carvedilol 3.125 Mg Tab) 3.125 mg PO BID-W/MEALS [facility] Last Admin: 02/16/22 07:58 Dose: 3.125 mg Documented by: Famotidine (Famotidine 20 Mg Tab) 20 mg PO BID [facility] Last Admin: 02/16/22 07:58 Dose: 20 mg Documented by: Furosemide (Furosemide 20 Mg Tab) 20 mg PO DAILY [facility] Last Admin: 02/16/22 07:58 Dose: 20 mg Documented by: Heparin Sodium (Porcine) (Heparin Sodium,Porcine/Pf 5,000 Unit/0.5 Ml Syringe) 5,000 unit SQ Q8HR [facility] Last Admin: 02/16/22 07:59 Dose: 5,000 unit Documented by: Cefazolin Sodium 2 gm/ Sodium (Chloride) 50 mls @ 100 mls/hr IVPB Q8HR [facility]; Protocol Last Admin: 02/15/22 23:24 Dose: 100 mls/hr Documented by: Lisinopril (Lisinopril 5 Mg Tab) 5 mg PO DAILY [facility] Last Admin: 02/16/22 07:58 Dose: 5 mg Documented by: Morphine Sulfate (Morphine Sulfate 4 Mg/Ml Syringe) 4 mg IVP Q4HR PRN PRN Reason: Pain Last Admin: 02/15/22 20:49 Dose: 4 mg Documented by: Naloxone HCl (Naloxone 0.4 Mg/Ml 1 Ml Vial) 0.2 mg IV Q2M PRN PRN Reason: Opioid Reversal On examination: VITAL SIGNS: 98.1, 70, 17, 126/79, 96% room air GENERAL APPEARANCE: Laying in bed, awake HEENT: Normal external appearance of nose and ear. Oral cavity normal EYES: Pupils equal. Conjunctiva normal. NECK: JVD not raised. Mass not palpable. RESPIRATORY: Respiratory effort normal. Lungs clear to auscultation. CARDIOVASCULAR: First and second sounds normal. Edema present. ABDOMEN: Soft. Liver and spleen not palpable. No tenderness. No mass palpable. MUSCULAR skeletal: Right hand in a dressing. PSYCHIATRY: Alert and oriented x3. Mood and affect normal. Investigations: February 16: White count 10.8 hemoglobin 12.7 platelets 196 pro-calcitonin 0.44 February 15: White count 12.3 hemoglobin 12.4 platelets 175 White count 15.9 hemoglobin 12.9 platelets 173 potassium 4 creatinine 0.9 Blood culture [February 12]: MSSA. [February 15: Positive Assessment and plan: -Acute septic arthritis of the right wrist. Cultures positive for MSSA.: Slow to respond Status post I&D, by Dr. Landeros on February 13. IV Ancef Follow with ID -Sepsis with repeat blood cultures from February 15 positive for MSSA: Slow to respond IV Ancef -Lactic acidosis from sepsis: Improved -Normocytic anemia might of chronic disease from underlying RA -Essential hypertension Zestril 5 mg daily. Coreg 3.125 mg twice a day -GERD Pepcid 20 mg twice a day -Chronic rheumatoid arthritis Nurys Mix IV Ancef. Naproxen 250 mg 3 times a day.. Other medications to continue. Care was discussed with the patient. If blood cultures remain positive. Consider NATHANIEL.
[2022-02-16] MEDS: NAPROXEN 250 MG TAB PO SCH ×2 (16:04→19:52)
--- NOTE | 2022-02-17 00:05 | P.PN ---
Subjective Progress Note Date: 02/16/22 Principal diagnosis: MSSA bacteremia and right wrist septic arthritis Patient is a 61 year old male with a past medical history significant for rheumatoid arthritis presented to the hospital with right wrist pain swelling in this patient who did have evidence of Staphylococcus aureus bacteremia and concerning for the right wrist septic arthritis, patient was taken to the OR last night and the patient is status post right wrist part of a with exploration and drainage of deep infection. On today's evaluation that is 02/16/2022, the patient denies any fever or any ch ills, the patient pain to the right wrist is currently controlled, the patient denies chest pain shortness of breath or cough , the patient denies abdominal pain and no diarrhea with antibiotic therapy Objective - Vital Signs Vital signs: Vital Signs Temp 98 F 02/16/22 14:20 Pulse 70 02/16/22 14:20 Resp 16 02/16/22 14:20 BP 137/80 02/16/22 14:20 Pulse Ox 94 L 02/16/22 14:20 Intake & Output 02/15/22 02/16/22 02/16/22 18:59 06:59 18:59 Intake Total 416 Output Total 1400 200 Balance -984 -200 Intake: Oral 416 Output: Urine 1400 200 Other: Voiding Method Toilet Toilet Urinal # Voids 2 1 - Exam GENERAL DESCRIPTION: Middle-aged male lying in bed in no distress RESPIRATORY SYSTEM: Unlabored breathing , decreased breath sounds at bases HEART: S1 S2 regular rate and rhythm , ABDOMEN: Soft , no tenderness EXTREMITIES: Right wrist is currently dressed in or dressing no drainage on the dressing - Labs CBC & Chem 7: 02/16/22 04:55 02/13/22 07:32 Labs: Abnormal Lab Results - Last 24 Hours (Table) 02/16/22 02/16/22 Range/Units 04:55 04:55 WBC 10.8 H (3.8-10.6) k/uL RBC 4.11 L (4.30-5.90) m/uL Hgb 12.7 L (13.0-17.5) gm/dL Neutrophils # 9.2 H (1.3-7.7) k/uL Procalcitonin 0.44 H (0.02-0.09) ng/mL Microbiology - Last 24 Hours (Table) 02/13/22 19:45 Gram Stain - Final Wrist - Right Wound Culture - Final Staphylococcus aureus 02/14/22 09:55 Blood Culture Gram Stain - Preliminary Blood Blood Culture - Preliminary Presumptive Staph aureus 02/15/22 05:55 Blood Culture Gram Stain - Preliminary Blood 02/15/22 05:55 Blood Culture - Final Blood 02/13/22 14:44 Gram Stain - Final Synovial Fluid Body Fluid Culture - Final Staphylococcus aureus Assessment and Plan (1) Positive blood culture Current Visit: Yes Status: Acute Code(s): R78.81 - BACTEREMIA SNOMED Code(s): 904851033 Plan: 1patient with gram-positive bacteremia which has been finalized with MSSA, source is likely right wrist septic arthritis with deep infection in this patient who is status post right wrist arthrotomy and drainage of the deep abscess completed on 02/13/2022 2-blood cultures will be repeated daily truck been clinically bacteremia culture from the 02/16/2020 so far positive, blood cultures have been repeated this morning and has been ordered for tomorrow morning 3patient will continue with cefazolin 2 g every 8 hours Time with Patient: Less than 30
[2022-02-17] MEDS: HEPARIN SODIUM,PORCINE/PF 5,000 UNIT/0.5 ML SYRINGE SQ SCH ×3 (08:53→23:32)
[2022-02-17] MEDS: NAPROXEN 250 MG TAB PO SCH ×3 (08:53→21:23)
[2022-02-17] MEDS: FUROSEMIDE 20 MG TAB PO SCH (08:54)
[2022-02-17] MEDS: carvediloL 3.125 MG TAB PO SCH ×2 (08:54→17:39)
[2022-02-17] MEDS: FAMOTIDINE 20 MG TAB PO SCH ×2 (08:55→19:58)
[2022-02-17] MEDS: lisinopriL 5 MG TAB PO SCH (08:59)
--- NOTE | 2022-02-17 11:33 | P.PN ---
Subjective Progress Note Date: 02/17/22 Principal diagnosis: Status post right wrist arthrotomy, radiocarpal, with exploration and drainage of deep infection Patient evaluated at bedside Jl resting in his hospital chair. He remains stable at this time, no acute events overnight with regards to the wrist. He st ates that the pain is improving. Currently denies any fevers or chills, shortness of breath, chest pain, nausea or vomiting. Objective - Vital Signs Vital signs: Vital Signs Temp 97.5 F L 02/17/22 07:15 Pulse 77 02/17/22 07:15 Resp 17 02/17/22 07:15 BP 119/75 02/17/22 07:15 Pulse Ox 93 L 02/17/22 07:15 Intake & Output 02/16/22 02/17/22 02/17/22 18:59 06:59 18:59 Intake Total 222 Output Total 600 Balance -378 Intake: Oral 222 Output: Urine 600 Other: Voiding Method Urinal Urinal # Voids 1 - Exam Right upper extremity: Dressing was removed today, there is a small amount of purulent drainage on the bandage. Sutures remain intact. Minimal erythema present, improving since last exam. No purulent material was able to be expressed with compression. Soft tissue remains swollen on the dorsum of the hand and fingers. Passive and active range of motion of the wrist reproduces no severe pain, improvement since last exam. Sensory exam to light touch throughout the hand is intact, no focal deficits appreciated. Cap refills less than 3 seconds. - Labs CBC & Chem 7: 02/16/22 04:55 02/13/22 07:32 Labs: Microbiology - Last 24 Hours (Table) 02/16/22 04:55 Blood Culture - Preliminary Blood No Growth after 24 hours 02/13/22 19:45 Anaerobic Culture - Preliminary Wrist - Right 02/13/22 19:45 Gram Stain - Final Wrist - Right Wound Culture - Final Staphylococcus aureus 02/14/22 09:55 Blood Culture Gram Stain - Preliminary Blood Blood Culture - Preliminary Presumptive Staph aureus 02/15/22 05:55 Blood Culture Gram Stain - Preliminary Blood Assessment and Plan Assessment: Status post right wrist arthrotomy, radiocarpal, with exploration and drainage of deep infection Plan: Dr. Landeros was also available to examine the patient today at bedside. No orthopedic surgical intervention recommended. Regular diet has been ordered After removal of the dressing, discussed with both patient and nursing okay to do Hibiclens soaks, basic bandage be applied after this Continue to utilize basic range of motion exercises of the hand and wrist to help with swelling Other medical specialty recommendations Discharge planning: An orthopedic standpoint, patient stable for discharge and follow-up in 1 week at [facility] Time with Patient: Less than 30
--- NOTE | 2022-02-17 16:22 | P.PN ---
Progress Note - Text Progress Note Date: 02/17/22 Presenting complaint: Right hand pain Hospital course: 61-year-old man, follows with Dr. Kulkarni with hypertension, severe obstructive sleep apnea, history of congestive heart failure with unspecified ejection fraction, rheumatoid arthritis, gout presented with joint swelling and pain. Patient says that this has been present for approximately 1 week, initially went to the hospital to get treated for this, was started with IV steroids, then discharged on by mouth steroids and colchicine. Furthermore, his hydrochlorothiazide was discontinued and replaced with Lasix and carvedilol. However, he apparently did not start taking his oral steroids, and his ankle swelling and pain returned, in addition to now having pain in the right wrist as well with limited mobility. He also reports some increased dorsal foot redness, heat. He denies fevers, chills, nausea, vomiting, chest pain, palpitations, sick to be, presyncope, cough, dyspnea, abdominal pain, constipation, diarrhea, dysuria, dyschezia, numbness/weakness of extremities. In the emergency room, patient is afebrile, 116/77, 96% on room air, heart rate 73. CBC is markable for leukocytosis to 21.9, chemistries remarkable for elevated BUN to 32. LFTs are unremarkable. ESR/CRP are 28/22. Troponin was negative. BNP was 379. UA shows trace protein, otherwise unremarkable. Patient had foot and ankle x-ray which showed arthropathy of the first MTP bilaterally, no erosive changes. Patient had hand and wrist x-ray, showing subcortical cyst about the wrists, rotation of the ulnar styloid process and multiple areas of periarticular erosion with generalized soft tissue swelling. February 14: I assumed care of the patient today. Patient yesterday underwent I&D of the right wrist. Significant amount of purulence was removed including tenosynovitis was found. Pain is better. Right hand in a dressing. No nausea vomiting. Eating. Had a bowel movement. Lower extremity swelling which is relatively new he says. No shortness of breath. IV Lasix ordered for fluid overload. IV vancomycin February 15: Having pain in the right hand. No dressing. Oral intake good. Had a bowel movement. Antibiotic changed to IV Ancef. February 16: Drain was removed from the right hand surgical site yesterday. Couple of stitches were removed orthopedic today. Some pain present. Discussed with the patient to sit up and ambulate. Family present. On IV Ancef. We will add naproxen finding inflammatory affect. Patient has several rheumatoid nodules. Often often the overlying skin breaks down. That's likely the portal of entry for bacteria. Blood cultures remain positive. We'll consider doing NATHANIEL. February 17: Patient is right-handed being soaked in warm water per orthopedics. NATHANIEL has been requested because of repeated positive blood cultures. Os patient to increase activity. Active Medications Hydrocodone Bitart/Acetaminophen (Hydrocodone/Apap 7.5-325mg 1 Each Tab) 1 each PO Q6HR PRN PRN Reason: Pain Last Admin: 02/16/22 21:27 Dose: 1 each Documented by: Carvedilol (Carvedilol 3.125 Mg Tab) 3.125 mg PO BID-W/MEALS [facility] Last Admin: 02/17/22 08:54 Dose: 3.125 mg Documented by: Famotidine (Famotidine 20 Mg Tab) 20 mg PO BID [facility] Last Admin: 02/17/22 08:55 Dose: 20 mg Documented by: Furosemide (Furosemide 20 Mg Tab) 20 mg PO DAILY [facility] Last Admin: 02/17/22 08:54 Dose: 20 mg Documented by: Heparin Sodium (Porcine) (Heparin Sodium,Porcine/Pf 5,000 Unit/0.5 Ml Syringe) 5,000 unit SQ Q8HR [facility] Last Admin: 02/17/22 08:53 Dose: 5,000 unit Documented by: Cefazolin Sodium 2 gm/ Sodium (Chloride) 50 mls @ 100 mls/hr IVPB Q8HR [facility]; Protocol Last Admin: 02/17/22 08:55 Dose: 100 mls/hr Documented by: Lisinopril (Lisinopril 5 Mg Tab) 5 mg PO DAILY [facility] Last Admin: 02/17/22 08:59 Dose: 5 mg Documented by: Morphine Sulfate (Morphine Sulfate 4 Mg/Ml Syringe) 4 mg IVP Q4HR PRN PRN Reason: Pain Last Admin: 02/15/22 20:49 Dose: 4 mg Documented by: Naloxone HCl (Naloxone 0.4 Mg/Ml 1 Ml Vial) 0.2 mg IV Q2M PRN PRN Reason: Opioid Reversal Naproxen (Naproxen 250 Mg Tab) 250 mg PO TID [facility] Last Admin: 02/17/22 08:53 Dose: 250 mg Documented by: On examination: VITAL SIGNS: 98, 74, 17, 121/71, 97% room air GENERAL APPEARANCE: Laying in bed, awake HEENT: Normal external appearance of nose and ear. Oral cavity normal EYES: Pupils equal. Conjunctiva normal. NECK: JVD not raised. Mass not palpable. RESPIRATORY: Respiratory effort normal. Lungs clear to auscultation. CARDIOVASCULAR: First and second sounds normal. Edema present. ABDOMEN: Soft. Liver and spleen not palpable. No tenderness. No mass palpable. MUSCULAR skeletal: Right hand in a dressing. Rheumatoid nodules. PSYCHIATRY: Alert and oriented x3. Mood and affect normal. Investigations: February 16: White count 10.8 hemoglobin 12.7 platelets 196 pro-calcitonin 0.44 February 15: White count 12.3 hemoglobin 12.4 platelets 175 White count 15.9 hemoglobin 12.9 platelets 173 potassium 4 creatinine 0.9 Blood culture [February 12]: MSSA. [February 15: Positive Assessment and plan: -Acute septic arthritis of the right wrist. Cultures positive for MSSA.: Slow to respond Status post I&D, by Dr. Landeros on February 13. IV Ancef Follow with ID. -Sepsis with repeat blood cultures from February 15 positive for MSSA: Slow to respond IV Ancef -Lactic acidosis from sepsis: Improved -Normocytic anemia might of chronic disease from underlying RA -Essential hypertension Zestril 5 mg daily. Coreg 3.125 mg twice a day -GERD Pepcid 20 mg twice a day -Chronic rheumatoid arthritis Nurys Mix IV Ancef. Ordered NATHANIEL to rule out endocarditis. Discussed with patient.
[2022-02-17] MEDS: HYDROcodone/APAP 7.5-325MG 1 EACH TAB PO PRN ×2 (17:38→23:35)
--- NOTE | 2022-02-17 23:50 | P.PN ---
Subjective Progress Note Date: 02/17/22 Principal diagnosis: MSSA bacteremia and right wrist septic arthritis Patient is a 61 year old male with a past medical history significant for rheumatoid arthritis presented to the hospital with right wrist pain swelling in this patient who did have evidence of Staphylococcus aureus bacteremia and concerning for the right wrist septic arthritis, patient was taken to the OR last night and the patient is status post right wrist part of a with exploration and drainage of deep infection. On today's evaluation that is 02/17/2022, the patient remains to be afebrile, th e patient denies any worsening pain to the right wrist, the patient denies chest pain shortness of breath or cough , the patient denies abdominal pain and no diarrhea with antibiotic therapy Objective - Vital Signs Vital signs: Vital Signs Temp 97.5 F L 02/17/22 07:15 Pulse 77 02/17/22 07:15 Resp 17 02/17/22 07:15 BP 119/75 02/17/22 07:15 Pulse Ox 93 L 02/17/22 07:15 Intake & Output 02/16/22 02/17/22 02/17/22 18:59 06:59 18:59 Intake Total 222 Output Total 600 Balance -378 Intake: Oral 222 Output: Urine 600 Other: Voiding Method Urinal Urinal # Voids 1 - Exam GENERAL DESCRIPTION: Middle-aged male lying in bed in no distress RESPIRATORY SYSTEM: Unlabored breathing , decreased breath sounds at bases HEART: S1 S2 regular rate and rhythm , ABDOMEN: Soft , no tenderness EXTREMITIES: Right wrist is currently dressed in or dressing no drainage on the dressing - Labs CBC & Chem 7: 02/16/22 04:55 02/13/22 07:32 Labs: Microbiology - Last 24 Hours (Table) 02/15/22 05:55 Blood Culture Gram Stain - Preliminary Blood Blood Culture - Preliminary Presumptive Staph aureus 02/16/22 04:55 Blood Culture - Preliminary Blood No Growth after 24 hours 02/13/22 19:45 Anaerobic Culture - Preliminary Wrist - Right 02/13/22 19:45 Gram Stain - Final Wrist - Right Wound Culture - Final Staphylococcus aureus 02/14/22 09:55 Blood Culture Gram Stain - Preliminary Blood Blood Culture - Preliminary Presumptive Staph aureus Assessment and Plan (1) Positive blood culture Current Visit: Yes Status: Acute Code(s): R78.81 - BACTEREMIA SNOMED Code(s): 717230468 Plan: 1patient with gram-positive bacteremia which has been finalized with MSSA, so urce is likely right wrist septic arthritis with deep infection in this patient who is status post right wrist arthrotomy and drainage of the deep abscess completed on 02/13/2022 2-blood cultures will be repeated daily truck been clinically bacteremia culture from the 02/16/2022 so far negative, blood cultures have been repeated this morning and if the blood cultures remained negative at 72 hours to get a PICC line for outpatient IV antibiotic 3patient will continue with cefazolin 2 g every 8 hours Time with Patient: Less than 30
[2022-02-18] MEDS: HYDROcodone/APAP 7.5-325MG 1 EACH TAB PO PRN ×3 (08:06→21:01)
[2022-02-18] MEDS: FAMOTIDINE 20 MG TAB PO SCH ×2 (08:06→21:03)
[2022-02-18] MEDS: carvediloL 3.125 MG TAB PO SCH ×2 (08:06→16:07)
[2022-02-18] MEDS: HEPARIN SODIUM,PORCINE/PF 5,000 UNIT/0.5 ML SYRINGE SQ SCH ×3 (08:06→23:11)
[2022-02-18] MEDS: lisinopriL 5 MG TAB PO SCH (08:07)
[2022-02-18] MEDS: NAPROXEN 250 MG TAB PO SCH ×3 (08:07→21:02)
[2022-02-18] MEDS: FUROSEMIDE 20 MG TAB PO SCH (08:07)
--- NOTE | 2022-02-18 08:50 | P.PN ---
Subjective Progress Note Date: 02/18/22 Principal diagnosis: Status post right wrist arthrotomy, radiocarpal, with exploration and drainage of deep infection Patient evaluated at bedside,he is sitting up in bed. He states the wrist is feeling pretty well at this point. It remains wrapped with a bandage at this time. He was doing the Hibiclens soaks yesterday. Scheduled to also receive those today. He remains nothing by mouth at this time he may begin undergoing NATHANIEL later today. Currently denies any fevers or chills, shortness of breath, chest pain, nausea or vomiting. Objective - Vital Signs Vital signs: Vital Signs Temp 97.8 F 02/18/22 07:10 Pulse 73 02/18/22 07:10 Resp 18 02/18/22 07:10 BP 151/73 02/18/22 07:10 Pulse Ox 93 L 02/18/22 07:10 Intake & Output 02/17/22 02/18/22 02/18/22 18:59 06:59 18:59 Intake Total 118 Output Total 300 100 Balance -182 -100 Intake: Oral 118 Output: Urine 300 100 Other: Voiding Method Urinal # Voids 2 - Exam Right upper extremity: Dressing is intact of the right hand and wrist area. No spotting or obvious drainage is appreciated. Passive and active motion of the wrist demonstrates Se improved range of motion along with decreasing pain.nsory exam to light touch throughout the hand is intact, no focal deficits appreciated. Cap refills less than 3 seconds. - Labs CBC & Chem 7: 02/16/22 04:55 02/13/22 07:32 Labs: Microbiology - Last 24 Hours (Table) 02/17/22 06:18 Blood Culture - Preliminary Blood No Growth after 24 hours 02/16/22 04:55 Blood Culture - Preliminary Blood No Growth after 48 hours 02/13/22 14:41 Anaerobic Culture - Final Wrist - Right 02/15/22 05:55 Blood Culture Gram Stain - Preliminary Blood Blood Culture - Preliminary Presumptive Staph aureus Assessment and Plan Assessment: Status post right wrist arthrotomy, radiocarpal, with exploration and drainage of deep infection Plan: Wrist/hand remained stable at this time, no orthopedic surgical intervention recommended Continue with Hibiclens soaks Continue to utilize basic range of motion exercises of the hand and wrist to hel p with swelling Other medical specialty recommendations Discharge planning: On an orthopedic standpoint, patient stable for discharge and [facility]. If there are any questions regarding this patient, please contact our service Time with Patient: Less than 30
--- NOTE | 2022-02-18 11:11 | P.CRDCN ---
History of Present Illness History of present illness: HISTORY OF PRESENTING ILLNESS This is a pleasant 61-year-old male past medical history significant for hypertension, obstructive sleep apnea, rheumatoid arthritis, gout. He does not follow with a [employer] [employer] [facility]. He denies any prior history of cardiac disease. We have been asked to see in consultation for NATHANIEL. Patient presents to the emergency department on 02/12/2022 with complaints of joint swelling and pain for about one week. Infectious disease and also have been following the patient for septic arthritis. Blood cultures-positive for Staphylococcus aureus bacteremia concerning for septic arthritis of the right wrist per infectious disease. On 02/13/2022 patient underwent right wrist arthrotomy with exploration and drainage of deep infection. Patient has been on IV cefazolin per infectious disease. Blood cultures on 02/16 and 02/17 have been negative growth to date. Patient seen and examined at bedside, no acute distress. He denies any chest pain, shortness of breath, lightheadedness, dizziness, he denies any fever, cough, chills. DIAGNOSTICS EKG reveals sinus rhythm with sinus arrhythmia, heart rate 75, no acute ST ST-T wave abnormalities. Echocardiogram on 02/13 was technically difficult study, losartan was used, EF was 5560% mild mitral regurgitation and mild tricuspid regurgitation Laboratory reviewed, WBC 10.8, hemoglobin 12.7, platelets 196, sodium 138, pot assium 4.0, BUN 33, serum creatinine 0.9, magnesium 2.1, pro-calcitonin 0.4 Current cardiac medications include lisinopril 5 mg daily, carvedilol 3.125 mg twice a day. REVIEW OF SYSTEMS At the time of my exam: CONSTITUTIONAL: Denies fever or chills. CARDIOVASCULAR: Denies chest pain, shortness of breath, orthopnea, PND or palpitations. RESPIRATORY: Denies cough. GASTROINTESTINAL: Denies abdominal pain, diarrhea, constipation, nausea or vomiting. MUSCULOSKELETAL: Denies myalgias. NEUROLOGIC: Denies numbness, tingling, headacbe or weakness. ENDOCRINE: Denies fatigue, weight change, polydipsia or polyurina. GENITOURINARY: Denies burning, hematuria or urgency with micturation. HEMATOLOGIC: Denies history of anemia or bleeding. PHYSICAL EXAMINATION Blood pressure 151/73, heart rate 73, afebrile, oxygen saturation 94% on room air CONSTITUTIONAL: No apparent distress. HEENT: Head is normocephalic. Pupils are equal, round. Sclerae anicteric. Mucous membranes of the mouth are moist. No JVD. No carotid bruit. CHEST EXAMINATION: Lungs are clear to auscultation. No chest wall tenderness is noted on palpation or with deep breathing. HEART EXAMINATION: Regular rate and rhythm. S1, S2 heard. No murmurs, gallops or rub. ABDOMEN: Soft, nontender. Positive bowel sounds. EXTREMITIES: 2+ peripheral pulses, no lower extremity edema and no calf tenderness. NEUROLOGIC EXAMINATION: Patient is awake, alert and oriented x3. ASSESSMENT Acute septic arthritis of the right wrist s/p right wrist arthrotomy with exploration and drainage of deep infection on 02/13/2022 Staph aureus bacteremia Hypertension History of obstructive sleep apnea History of Rheumatoid arthritis History of gout PLAN Patient seen and evaluated with Dr. Villa, due to blood cultures clearing with negative growth to date since 02/16, improvement in leukocytosis and neutrophils, and no valve abnormalities seen on echocardiogram, recommend holding off on NATHANIEL at this time. Recommend repeating 2D echocardiogram and doppler study to assess valves for possible vegetation. Repeat blood cultures today. Further recomme ndations based on clinical course Nurse practitioner note has been reviewed by physician. Signing provider agrees with the documented findings, assessment, and plan of care. Past Medical History Past Medical History: Hypertension, Rheumatoid Arthritis (RA) History of Any Multi-Drug Resistant Organisms: None Reported Additional Past Surgical History / Comment(s): cataracts, colonoscopy Past Psychological History: No Psychological Hx Reported Smoking Status: Current every day smoker Past Alcohol Use History: None Reported Past Drug Use History: None Reported Medications and Allergies Home Medications Medication Instructions Recorded Confirmed Type Famotidine [Pepcid] 20 mg PO BID 02/12/22 02/12/22 History carvediloL [Coreg] 3.125 mg PO BID 02/12/22 02/12/22 History lisinopriL [Zestril] 5 mg PO DAILY 02/12/22 02/12/22 History predniSONE See Taper PO DAILY 02/12/22 02/12/22 History HYDROcodone/APAP 7.5-325MG [[place] 1 tab PO Q4H PRN #18 tab 02/13/22 Rx 7.5-325] Ibuprofen [Motrin] 600 mg PO Q6HR PRN #30 tab 02/13/22 Rx Allergies Allergy/AdvReac Type Severity Reaction Status Date / Time No Known Allergies Allergy Verified 02/12/22 10:47 Physical Exam Vitals: Vital Signs Temp Pulse Pulse Resp BP Pulse Ox 02/18/22 07:10 97.8 F 73 18 151/73 93 L 02/18/22 00:42 98.4 F 80 18 99/63 94 L 02/17/22 19:58 74 78 18 02/17/22 19:12 98.2 F 78 18 112/66 94 L 02/17/22 15:00 98 F 74 17 121/71 97 Intake and Output 02/17/22 02/18/22 02/18/22 22:59 06:59 14:59 Output Total 100 Balance -100 Output: Urine 100 Other: Voiding Method Urinal # Voids 1 2 Results 02/16/22 04:55 02/13/22 07:32 Current Medications Generic Name Dose Route Start Last Admin Trade Name Freq PRN Reason Stop Dose Admin Hydrocodone Bitart/Acetaminophen 1 each 02/13/22 20:09 02/18/22 10:42 Hydrocodone/Apap 7.5-325mg 1 Each Tab PO 1 each Q6HR PRN Administration Pain Carvedilol 3.125 mg 02/12/22 14:00 02/18/22 08:06 Carvedilol 3.125 Mg Tab PO 3.125 mg BID-W/MEALS WHITNEY Administration Famotidine 20 mg 02/12/22 21:00 02/18/22 08:06 Famotidine 20 Mg Tab PO 20 mg BID WH[facility]NEY Administration Furosemide 20 mg 02/13/22 09:00 02/18/22 08:07 Furosemide 20 Mg Tab PO 20 mg DAILY WH[facility]NEY Administration Heparin Sodium (Porcine) 5,000 unit 02/12/22 16:00 02/18/22 08:06 Heparin Sodium,Porcine/Pf 5,000 Unit/0.5 Ml Syringe SQ 5,000 unit Q8HR [facility]NEY Administration Cefazolin Sodium 2 gm/ Sodium 50 mls @ 100 mls/hr 02/14/22 18:15 02/18/22 08:05 Chloride IVPB 100 mls/hr Q8HR [facility]NEY Administration Protocol Lisinopril 5 mg 02/17/22 09:00 02/18/22 08:07 Lisinopril 5 Mg Tab PO 5 mg DAILY [facility]NEY Administration Morphine Sulfate 4 mg 02/12/22 12:40 02/15/22 20:49 Morphine Sulfate 4 Mg/Ml Syringe IVP 4 mg Q4HR PRN Administration Pain Naloxone HCl 0.2 mg 02/12/22 12:51 Naloxone 0.4 Mg/Ml 1 Ml Vial IV Q2M PRN Opioid Reversal Naproxen 250 mg 02/16/22 16:00 02/18/22 08:07 Naproxen 250 Mg Tab PO 250 mg TID [facility]NEY Administration Intake and Output 02/17/22 02/18/22 02/18/22 22:59 06:59 14:59 Output Total 100 Balance -100 Output: Urine 100 Other: Voiding Method Urinal # Voids 1 2 02/16/22 04:55 02/13/22 07:32
--- NOTE | 2022-02-18 13:11 | CDI ---
Documentation Clarification Form Date: 02/18/2022 12:55:36 PM From: Sharmin Gomez RN, CCDS Admit Date: 02/13/2022 10:36:00 AM Patient Name: Edgar Magana Visit Number: [id number] Discharge Date: ATTENTION: The Clinical Documentation Specialists (CDI) and [facility] Coding Staff appreciate your assistance in clarifying documentation. Please respond to the clarification below the line at the bottom and electronically sign. The CDI & [facility] Coding staff will review the response and follow-up if needed. Please note: Queries are made part of the Legal Health Record. If you have any questions, please contact the author of this message via ITS. Dr. Dieter Salomon Your patient has the documented diagnosis of unspecified CHF in your H/P and ongoing progress notes. Additional information regarding the type, acuity of CHF is requested. History/Risk Factors: Congestive heart failure, Rheumatoid arthritis, Gout Clinical Indicators: 61-year-old male present with joint swelling and pain. His past medical history has CHF with ongoing treatment. 02/14 progress note: IV Lasix ordered for fluid overload. 02/13 VS/Pulse OX: 110/51 61 16 98.1 02/12 BNP: 379 02/13 Echocardiogram Results: Overall left ventricular systolic function is low normal with, an EF between 55-60 % 02/12 Chest X Ray: Borderline heart size. Small left pleural effusion on the lateral view. Correlate to exclude mild CHF as a potential etiology. Treatment: Coreg 3.375 MG PO BID, Lasix 20 MG PO Daily 02/13-02/18 Lasix 20 mg IV Q6 02/14, 02/15 X2 Doses Zestril 5 MG PO Daily In your professional opinion, can you please clarify the [acuity and type] of CHF if known? [ ] Acute Systolic Heart Failure (reduced EF) [ ] Chronic Systolic Heart Failure (reduced EF) [ ] Acute on Chronic Systolic Heart Failure (reduced EF) [ ] Acute Diastolic Heart Failure (preserved EF) [ ] Chronic Diastolic Heart Failure (preserved EF) [ ] Acute on Chronic Diastolic Heart Failure (preserved EF) [ ] Acute Systolic & Diastolic Heart Failure [ ] Chronic Systolic & Diastolic Heart Failure [ ] Acute on Chronic Heart Failure Systolic & Diastolic Heart Failure [ ] Other, please specify [ ] Unable to determine (Template Last Revised: January 2021) No congestive heart failure MTDD
--- NOTE | 2022-02-18 15:56 | P.PN ---
Progress Note - Text Progress Note Date: 02/18/22 Presenting complaint: Right hand pain Hospital course: 61-year-old man, follows with Dr. Kulkarni with hypertension, severe obstructive sleep apnea, history of congestive heart failure with unspecified ejection fraction, rheumatoid arthritis, gout presented with joint swelling and pain. Patient says that this has been present for approximately 1 week, initially went to the hospital to get treated for this, was started with IV steroids, then discharged on by mouth steroids and colchicine. Furthermore, his hydrochlorothiazide was discontinued and replaced with Lasix and carvedilol. However, he apparently did not start taking his oral steroids, and his ankle swelling and pain returned, in addition to now having pain in the right wrist as well with limited mobility. He also reports some increased dorsal foot redness, heat. He denies fevers, chills, nausea, vomiting, chest pain, palpitations, sick to be, presyncope, cough, dyspnea, abdominal pain, constipation, diarrhea, dysuria, dyschezia, numbness/weakness of extremities. In the emergency room, patient is afebrile, 116/77, 96% on room air, heart rate 73. CBC is markable for leukocytosis to 21.9, chemistries remarkable for elevated BUN to 32. LFTs are unremarkable. ESR/CRP are 28/22. Troponin was negative. BNP was 379. UA shows trace protein, otherwise unremarkable. Patient had foot and ankle x-ray which showed arthropathy of the first MTP bilaterally, no erosive changes. Patient had hand and wrist x-ray, showing subcortical cyst about the wrists, rotation of the ulnar styloid process and multiple areas of periarticular erosion with generalized soft tissue swelling. February 14: I assumed care of the patient today. Patient yesterday underwent I&D of the right wrist. Significant amount of purulence was removed including tenosynovitis was found. Pain is better. Right hand in a dressing. No nausea vomiting. Eating. Had a bowel movement. Lower extremity swelling which is relatively new he says. No shortness of breath. IV Lasix ordered for fluid overload. IV vancomycin February 15: Having pain in the right hand. No dressing. Oral intake good. Had a bowel movement. Antibiotic changed to IV Ancef. February 16: Drain was removed from the right hand surgical site yesterday. Couple of stitches were removed orthopedic today. Some pain present. Discussed with the patient to sit up and ambulate. Family present. On IV Ancef. We will add naproxen finding inflammatory affect. Patient has several rheumatoid nodules. Often often the overlying skin breaks down. That's likely the portal of entry for bacteria. Blood cultures remain positive. We'll consider doing NATHANIEL. February 17: Patient is right-handed being soaked in warm water per orthopedics. NATHANIEL has been requested because of repeated positive blood cultures. Os patient to increase activity. February 18: Patient has continued to get Hib[place]an with right hand. Blood culture from February 16 negative. NATHANIEL was ordered. To rule out infective pneumonitis. Cardiology has decided proceed with 2-D echo. Discussed with patient. On examination: VITAL SIGNS: 98.3, 68, 16, 149/68, 94% room air GENERAL APPEARANCE: Laying in bed, awake HEENT: Normal external appearance of nose and ear. Oral cavity normal EYES: Pupils equal. Conjunctiva normal. NECK: JVD not raised. Mass not palpable. RESPIRATORY: Respiratory effort normal. Lungs clear to auscultation. CARDIOVASCULAR: First and second sounds normal. Edema present. ABDOMEN: Soft. Liver and spleen not palpable. No tenderness. No mass palpable. MUSCULAR skeletal: Right hand in a dressing. Rheumatoid nodules. PSYCHIATRY: Alert and oriented x3. Mood and affect normal. Investigations: February 16: White count 10.8 hemoglobin 12.7 platelets 196 pro-calcitonin 0.44 February 15: White count 12.3 hemoglobin 12.4 platelets 175 White count 15.9 hemoglobin 12.9 platelets 173 potassium 4 creatinine 0.9 Blood culture [February 12]: MSSA. [February 15: Positive Assessment and plan: -Acute septic arthritis of the right wrist. Cultures positive for MSSA.: Slow to respond Status post I&D, by Dr. Landeros on February 13. IV Ancef Follow with ID. -Sepsis with repeat blood cultures from February 15 positive for MSSA: Slow to respond IV Ancef -Lactic acidosis from sepsis: Improved -Normocytic anemia might of chronic disease from underlying RA -Essential hypertension Zestril 5 mg daily. Coreg 3.125 mg twice a day -GERD Pepcid 20 mg twice a day -Chronic rheumatoid arthritis Motrin, [place] IV Ancef. Cardiology is getting a 2-D echocardiogram. PICC line when okay with ID. Other medications to continue.
--- NOTE | 2022-02-18 22:57 | P.PN ---
Subjective Progress Note Date: 02/18/22 Principal diagnosis: MSSA bacteremia and right wrist septic arthritis Patient is a 61 year old male with a past medical history significant for rheumatoid arthritis presented to the hospital with right wrist pain swelling in this patient who did have evidence of Staphylococcus aureus bacteremia and concerning for the right wrist septic arthritis, patient was taken to the OR last night and the patient is status post right wrist part of a with exploration and drainage of deep infection. On today's evaluation that is 02/18/2022, the patient denies any fever or any ch ills, the patient pain to the right wrist has decreased in intensity, the patient denies chest pain shortness of breath or cough , the patient denies abdominal pain and no diarrhea with antibiotic therapy Objective - Vital Signs Vital signs: Vital Signs Temp 97.8 F 02/18/22 07:10 Pulse 73 02/18/22 07:10 Resp 18 02/18/22 07:10 BP 151/73 02/18/22 07:10 Pulse Ox 93 L 02/18/22 07:10 Intake & Output 02/17/22 02/18/22 02/18/22 18:59 06:59 18:59 Intake Total 118 180 Output Total 300 100 Balance -182 -100 180 Intake: Oral 118 180 Output: Urine 300 100 Other: Voiding Method Urinal # Voids 2 - Exam GENERAL DESCRIPTION: Middle-aged male lying in bed in no distress RESPIRATORY SYSTEM: Unlabored breathing , decreased breath sounds at bases HEART: S1 S2 regular rate and rhythm , ABDOMEN: Soft , no tenderness EXTREMITIES: Right wrist is currently dressed in or dressing no drainage on the dressing - Labs CBC & Chem 7: 02/16/22 04:55 02/13/22 07:32 Labs: Microbiology - Last 24 Hours (Table) 02/15/22 05:55 Blood Culture Gram Stain - Final Blood Blood Culture - Final Staphylococcus aureus 02/14/22 09:55 Blood Culture Gram Stain - Final Blood Blood Culture - Final Staphylococcus aureus 02/13/22 19:45 Anaerobic Culture - Final Wrist - Right 02/17/22 06:18 Blood Culture - Preliminary Blood No Growth after 24 hours 02/16/22 04:55 Blood Culture - Preliminary Blood No Growth after 48 hours 02/13/22 14:41 Anaerobic Culture - Final Wrist - Right Assessment and Plan (1) Positive blood culture Current Visit: Yes Status: Acute Code(s): R78.81 - BACTEREMIA SNOMED Code(s): 875809981 Plan: 1patient with gram-positive bacteremia which has been finalized with MSSA, source is likely right wrist septic arthritis with deep infection in this patient who is status post right wrist arthrotomy and drainage of the deep abscess completed on 02/13/2022 2-blood cultures blood culture from the 02/16/2022 so far negative, if remains to be negative by a.m. he will be able to get a PICC line 3patient will continue with cefazolin 2 g every 8 hours, plan is for total of 6 week course of therapy Time with Patient: Less than 30
[2022-02-19 06:48] LABS: African American GFR (CKD) >90 (>60 ml/min/1.73 sqM); Anion Gap 3 mmol/L; Blood Urea Nitrogen 20 mg/dL (9-20); Carbon Dioxide 31 mmol/L (22-30); Chloride 104 mmol/L (98-107); Glucose 99 mg/dL (74-99); Non-African American GFR(CKD) >90 (>60 ml/min/1.73 sqM); Potassium 3.7 mmol/L (3.5-5.1); Sodium 138 mmol/L (137-145)
[2022-02-19 06:52] LABS: Basophils % (A) 0 %; Eosinophils # (A) 0.1 k/uL (0-0.7); Eosinophils % (A) 1 %; HCT 37.6 % (39.0-53.0); HGB 12.2 gm/dL (13.0-17.5); Lymphocytes # (A) 1.2 k/uL (1.0-4.8); Lymphocytes % (A) 20 %; MCH 31.1 pg (25.0-35.0); MCHC 32.5 g/dL (31.0-37.0); MCV 95.7 fL (80.0-100.0); Mean Platelet Volume 7.8; Monocytes # (A) 0.2 k/uL (0-1.0); Monocytes % (A) 3 %; Neutrophils # (A) 4.3 k/uL (1.3-7.7); Neutrophils % (A) 74 %; Platelet Count 226 k/uL (150-450); RBC 3.93 m/uL (4.30-5.90); RDW 14.4 % (11.5-15.5); WBC 5.9 k/uL (3.8-10.6)
[2022-02-19 08:41] VITALS: RESP 17
[2022-02-19] MEDS: HEPARIN SODIUM,PORCINE/PF 5,000 UNIT/0.5 ML SYRINGE SQ SCH ×2 (09:39→15:47)
[2022-02-19] MEDS: FUROSEMIDE 20 MG TAB PO SCH (09:40)
[2022-02-19] MEDS: NAPROXEN 250 MG TAB PO SCH ×2 (09:40→15:59)
[2022-02-19] MEDS: FAMOTIDINE 20 MG TAB PO SCH (09:41)
[2022-02-19] MEDS: lisinopriL 5 MG TAB PO SCH (09:41)
[2022-02-19] MEDS: carvediloL 3.125 MG TAB PO SCH ×2 (09:41→16:02)
--- NOTE | 2022-02-19 10:23 | P.PN ---
Subjective HISTORY OF PRESENTING ILLNESS This is a pleasant 61-year-old male past medical history significant for hypertension, obstructive sleep apnea, rheumatoid arthritis, gout. He does not follow with a operations manager assistant. He denies any prior history of cardiac disease. We have been asked to see in consultation for NATHANIEL. Patient presents to the emergency department on 02/12/2022 with complaints of joint swelling and pain for about one week. Infectious disease and also have been following the patient for septic arthritis. Blood cultures-positive for Staphylococcus aureus bacteremia concerning for septic arthritis of the right wrist per infectious disease. On 02/13/2022 patient underwent right wrist arthrotomy with exploration and drainage of deep infection. Patient has been on IV cefazolin per infectious disease. Blood cultures on 02/16 and 02/17 have been negative growth to date. Patient seen and examined at bedside, no acute distress. He denies any chest pain, shortness of breath, lightheadedness, dizziness, he denies any fever, cough, chills. Plan for PICC line insertion and 6 week course of antibiotics per infectious disease Patient is currently maintained on carvedilol 3.125 mg twice a day, Lasix 20 mg daily, lisinopril 5 mg daily Labs, WBC 5.9, hemoglobin 12.2, platelets 226, sodium 138, potassium 3.7, BUN 20, serum creatinine 0.8 DIAGNOSTICS EKG reveals sinus rhythm with sinus arrhythmia, heart rate 75, no acute ST ST-T wave abnormalities. Echocardiogram on 02/13 was technically difficult study, losartan was used, EF was 5560% mild mitral regurgitation and mild tricuspid regurgitation PHYSICAL EXAMINATION Blood pressure 146/78, heart rate 64, afebrile, oxygen saturation 75% on room air CONSTITUTIONAL: No apparent distress. HEENT: Neck Supple. No JVD. No carotid bruit. CHEST EXAMINATION: Lungs are clear to auscultation. No chest wall tenderness is noted on palpation or with deep breathing. HEART EXAMINATION: Regular rate and rhythm. S1, S2 heard. No murmurs, gallops or rub. ABDOMEN: Soft, nontender. Positive bowel sounds. EXTREMITIES: 2+ peripheral pulses, no lower extremity edema and no calf tenderness. NEUROLOGIC EXAMINATION: Patient is awake, alert and oriented x3. ASSESSMENT Acute septic arthritis of the right wrist s/p right wrist arthrotomy with exploration and drainage of deep infection on 02/13/2022 Staph aureus bacteremia Hypertension History of obstructive sleep apnea History of Rheumatoid arthritis History of gout PLAN Discussed NATHANIEL with the patient. Patient would like to not have a NATHANIEL procedure if at all possible. Due to blood cultures clearing with negative growth to date since 02/16, improvement in leukocytosis and neutrophils, and no valve abnormalities seen on echocardiogram, recommend holding off on NATHANIEL at this time. Recommend repeating 2D echocardiogram and doppler study today to assess valves for possible vegetation. Plan for PICC line insertion and total of 6 week course of antibiotics per infectious disease. Discharge per primary team and clearance from other consultants. Nurse practitioner note has been reviewed by physician. Signing provider agrees with the documented findings, assessment, and plan of care. Objective - Vital Signs Vital signs: Vital Signs Temp 98.3 F 02/19/22 08:00 Pulse 64 02/19/22 08:00 Resp 17 02/19/22 08:00 BP 146/79 02/19/22 08:00 Pulse Ox 95 02/19/22 08:00 Intake & Output 02/18/22 02/19/22 02/19/22 18:59 06:59 18:59 Intake Total 298 Output Total 480 500 Balance -182 -500 Intake: Oral 298 Output: Urine 480 500 Other: Voiding Method Urinal - Labs CBC & Chem 7: 02/19/22 05:50 02/19/22 05:50 Labs: Abnormal Lab Results - Last 24 Hours (Table) 02/19/22 02/19/22 02/19/22 Range/Units 05:50 05:50 05:50 RBC 3.93 L (4.30-5.90) m/uL Hgb 12.2 L (13.0-17.5) gm/dL Hct 37.6 L (39.0-53.0) % Carbon Dioxide 31 H (22-30) mmol/L Calcium 8.0 L (8.4-10.2) mg/dL Procalcitonin 0.21 H (0.02-0.09) ng/mL Microbiology - Last 24 Hours (Table) 02/17/22 06:18 Blood Culture - Preliminary Blood No Growth after 48 hours 02/16/22 04:55 Blood Culture - Preliminary Blood No Growth after 72 hours 02/15/22 05:55 Blood Culture Gram Stain - Final Blood Blood Culture - Final Staphylococcus aureus 02/14/22 09:55 Blood Culture Gram Stain - Final Blood Blood Culture - Final Staphylococcus aureus 02/13/22 19:45 Anaerobic Culture - Final Wrist - Right
--- NOTE | 2022-02-19 10:34 | ECHOF ---
Referral Reason:Repeat to evaluate per electrical designer MEASUREMENTS -------- HEIGHT: 172.7 cm WEIGHT: 111.1 kg BP: RVIDd: 4.4 cm (< 3.3) IVSd: 1.4 cm (0.6 - 1.1) LVIDd: 4.5 cm (3.9 - 5.3) LVPWd: 1.4 cm (0.6 - 1.1) IVSs: 1.6 cm LVIDs: 4.8 cm LVPWs: 1.0 cm LA Diam: 4.6 cm (2.7 - 3.8) Ao Diam: 3.4 cm (2.0 - 3.7) AV Cusp: 2.0 cm (1.5 - 2.6) LA Diam: 4.4 cm (2.7 - 3.8) MV EXCURSION: 12.530 mm (> 18.000) MV EF SLOPE: 87 mm/s (70 - 150) EPSS: 0.2 cm MV E Neo: 0.77 m/s MV DecT: 271 ms MV A Neo: 0.48 m/s MV E/A Ratio: 1.59 RAP: 5.00 mmHg RVSP: 9.86 mmHg FINDINGS -------- Sinus rhythm. Echo done 02/13/22: Repeat echo. The left ventricular size is normal. Left ventricular wall thickness is normal. Overall left vent ricular systolic function is low-normal with, an EF between 50 - 55 %. The right ventricle is normal in size. The left atrial size is normal. The right atrial size is normal. There is mild aortic valve sclerosis. There is no evidence of aortic regurgitation. CONCLUSIONS -------- 1. Echo done 02/13/22: Repeat echo. 2. The left ventricular size is normal. 3. Left ventricular wall thickness is normal. 4. The right ventricle is normal in size. 5. The left atrial size is normal. 6. The right atrial size is normal. 7. There is mild aortic valve sclerosis. COVER INSPECTOR: Mercy Siddiqui RDCS
[2022-02-19] MEDS ORDERED: LIDOCAINE 1% INJ 10MG/ML (20 ML MDV) SQ ONE (15:12)
--- NOTE | 2022-02-19 15:31 | IR ---
PICC LINE PLACEMENT: HISTORY: Infection requiring long-term antibiotic therapy PROCEDURE: Ultrasound and fluoroscopic guidance of PICC line placement. COMPLICATIONS: None ANESTHESIA: 1. 1% Lidocaine locally. FINDINGS/TECHNIQUE: The procedure was explained to the patient. The risks, complications, benefits and alternatives were discussed and any questions were answered. Informed consent was obtained. The patient was placed supine on the fluoroscopic table and prepped and draped in the usual sterile fash ion. Utilizing a 21 gauge needle and sonographic and fluoroscopic guidance, access in the left basi lic vein was achieved and there is placement of a 0.018 guidewire. The vein is patent. A 4-F sheath was placed over the guidewire. The guidewire and dilator were removed and a 4-F. PICC line was plac ed through the sheath with the tip at the level of the SVC. The sheath was removed, the catheter was flushed and sutured into position. The patient was stable throughout the procedure and remained sta ble upon discharge from the Department of Radiology. The vein puncture was patent under ultrasound. A saba scale image was obtained to document patency of the vein punctured. All elements of the maximal barrier technique were utilized. FLUOROSCOPY TIME: 0.2 minutes and one image submitted IMPRESSION: Successful PICC line placement under ultrasound and fluoroscopic guidance.
[2022-02-19 16:21] VITALS: BP 133/76; PULSE 67; TEMP 98
[2022-02-19] MEDS: HYDROcodone/APAP 7.5-325MG 1 EACH TAB PO PRN (16:37)
--- NOTE | 2022-02-19 17:35 | P.DS ---
Providers Date of admission: 02/13/22 10:36 Expected date of discharge: 02/19/22 Attending physician: Dieter Salomon Consults: 02/13/22 10:24 Consult Physician Routine Consulting Provider: Edgar Landeros Consult Reason/Comments: septic arthritis of wrist? Do you want consulting provider notified?: Yes 02/13/22 10:30 Consult Physician Routine Consulting Provider: Anthony Sim Consult Reason/Comments: GPC bacteremia, possible septic arthritis Do you want consulting provider notified?: Yes 02/17/22 11:54 Consult Physician Routine Consulting Provider: Sidney Goldsmith Consult Reason/Comments: NATHANIEL/IE Do you want consulting provider notified?: Yes Primary care physician: Margarito Kulkarni [facility] Hospital Course: Presenting complaint: Right hand pain Hospital course: 61-year-old man, follows with Dr. Kulkarni with hypertension, severe obstructive sleep apnea, history of congestive heart failure with unspecified ejection fraction, rheumatoid arthritis, gout presented with joint swelling and pain. Patient says that this has been present for approximately 1 week, initially went to the hospital to get treated for this, was started with IV steroids, then discharged on by mouth steroids and colchicine. Furthermore, his hydrochlorothiazide was discontinued and replaced with Lasix and carvedilol. However, he apparently did not start taking his oral steroids, and his ankle swelling and pain returned, in addition to now having pain in the right wrist as well with limited mobility. He also reports some increased dorsal foot redness, heat. He denies fevers, chills, nausea, vomiting, chest pain, palpitations, sick to be, presyncope, cough, dyspnea, abdominal pain, constipation, diarrhea, dysuria, dyschezia, numbness/weakness of extremities. In the emergency room, patient is afebrile, 116/77, 96% on room air, heart rate 73. CBC is markable for leukocytosis to 21.9, chemistries remarkable for elevated BUN to 32. LFTs are unremarkable. ESR/CRP are 28/22. Troponin was negative. BNP was 379. UA shows trace protein, otherwise unremarkable. Patient had foot and ankle x-ray which showed arthropathy of the first MTP bilaterally, no erosive changes. Patient had hand and wrist x-ray, showing subcortical cyst about the wrists, rotation of the ulnar styloid process and multiple areas of periarticular erosion with generalized soft tissue swelling. February 14: I assumed care of the patient today. Patient yesterday underwent I&D of the right wrist. Significant amount of purulence was removed including tenosynovitis was found. Pain is better. Right hand in a dressing. No nausea vomiting. Eating. Had a bowel movement. Lower extremity swelling which is relatively new he says. No shortness of breath. IV Lasix ordered for fluid overload. IV vancomycin February 15: Having pain in the right hand. No dressing. Oral intake good. Had a bowel movement. Antibiotic changed to IV Ancef. February 16: Drain was removed from the right hand surgical site yesterday. Couple of stitches were removed orthopedic today. Some pain present. Discussed with the patient to sit up and ambulate. Family present. On IV Ancef. We will add naproxen finding inflammatory affect. Patient has several rheumatoid nodules. Often often the overlying skin breaks down. That's likely the portal of entry for bacteria. Blood cultures remain positive. We'll consider doing NATHANIEL. February 17: Patient is right-handed being soaked in warm water per orthopedics. NATHANIEL has been requested because of repeated positive blood cultures. Os patient to increase activity. February 18: Patient has continued to get [place] with right hand. Blood culture from February 16 negative. NATHANIEL was ordered. To rule out infective pneumonitis. Cardiology has decided proceed with 2-D echo. Discussed with patient. February 19: Patient get a PICC line today. 2-D echo results with discussed with ID. No need for NATHANIEL. Patient will get IV Invanz for a few weeks and will be followed by ID. fire manager arranging for home antibiotics. Patient to follow-up with ID and orthopedics. Discussion and discharge planning more than 35 minutes On examination: VITAL SIGNS: 98, 67, 17, 133 76, 96 was room air GENERAL APPEARANCE: Sitting up, awake HEENT: Normal external appearance of nose and ear. Oral cavity normal EYES: Pupils equal. Conjunctiva normal. NECK: JVD not raised. Mass not palpable. RESPIRATORY: Respiratory effort normal. Lungs clear to auscultation. CARDIOVASCULAR: First and second sounds normal. Edema present. ABDOMEN: Soft. Liver and spleen not palpable. No tenderness. No mass palpable. MUSCULAR skeletal: Right hand in a dressing. Rheumatoid nodules. PSYCHIATRY: Alert and oriented x3. Mood and affect normal. Investigations: February 19: White count 5.9 hemoglobin 12.2 potassium 3.7 creatinine 0.85 White count 15.9 hemoglobin 12.9 platelets 173 potassium 4 creatinine 0.9 Blood culture [February 12]: MSSA. [February 15: Negative Assessment and plan: -Acute septic arthritis of the right wrist. Cultures positive for MSSA.: Improving Status post I&D, by Dr. Landeros on February 13. IV Ancef Follow with ID. -Sepsis with repeat blood cultures from February 15 positive for MSSA: Blood culture from February 16 negative IV Ancef -Lactic acidosis from sepsis: Improved -Normocytic anemia might of chronic disease from underlying RA -Essential hypertension Zestril 5 mg daily. Coreg 3.125 mg twice a day -GERD Pepcid 20 mg twice a day -Chronic rheumatoid arthritis [employer]i [employer] Disposition: Home Plan - Discharge Summary New Discharge Prescriptions: New Ibuprofen [Motrin] 600 mg PO Q6HR PRN #30 tab PRN Reason: Pain ceFAZolin [Kefzol] 2 gm IVP Q8HR #126 each Continue predniSONE See Taper PO DAILY lisinopriL [Zestril] 5 mg PO DAILY Famotidine [Pepcid] 20 mg PO BID carvediloL [Coreg] 3.125 mg PO BID Changed HYDROcodone/APAP 7.5-325MG [[place] 7.5-325] 1 tab PO Q4H PRN #18 tab PRN Reason: Pain Discontinued Cholecalciferol [Vitamin D3 (25 Mcg = 1000 Iu)] 25 mcg PO DAILY Furosemide [Lasix] 20 mg PO DAILY Colchicine 0.6 mg PO DAILY Discharge Medication List Famotidine [Pepcid] 20 mg PO BID 02/12/22 [History] carvediloL [Coreg] 3.125 mg PO BID 02/12/22 [History] lisinopriL [Zestril] 5 mg PO DAILY 02/12/22 [History] predniSONE See Taper PO DAILY 02/12/22 [History] HYDROcodone/APAP 7.5-325MG [[place] 7.5-325] 1 tab PO Q4H PRN #18 tab 02/13/22 [Rx] Ibuprofen [Motrin] 600 mg PO Q6HR PRN #30 tab 02/13/22 [Rx] ceFAZolin [Kefzol] 2 gm IVP Q8HR #126 each 02/19/22 [Rx] Follow up Appointment(s)/Referral(s): Edgar Landeros DO [Doctor of Osteopathic Medicine] - 1 Week Margarito Kulkarni DO [Primary Care Provider] - 1-2 days [facility],Infusion [NON-STAFF] - 02/20/22 Anthony Sim MD [STAFF PHYSICIAN] - 2 Weeks [facility] Visiting Nurse, [NON-STAFF] - 02/20/22 Ambulatory/Diagnostic Orders: Basic Metabolic Panel [LAB.AMB] Location: None Selected C Reactive Protein [LAB.AMB] Location: None Selected Complete Blood Count w/diff [LAB.AMB] Location: None Selected Erythrocyte Sedimentation Rate [LAB.AMB] Location: None Selected Patient Instructions/Handouts: Hydrocodone/Acetaminophen (By mouth), Ibuprofen (By mouth), Rheumatoid Arthritis (DC) Activity/Diet/Wound Care/Special Instructions: GEORGE PICC line inserted 02/19/22 Right Hand--Surgical Soap Dressing change DAILY. heart healthy diet
== END 2022-02-19 17:58 | disposition home health service (06) | DRG 854 ==
LOC: EC 08:30 → 6NMEDSUR 12:51 → OBSVTOIN 02-13 10:36
PROVIDERS: ADMIT Hospitalist; ATTEND Hospitalist
PROC: 0R9N3ZX Drainage of Right Wrist Joint, Percutaneous Approach, Diagnostic (ICD-10-PCS; principal; 2022-02-13 14:50)
PROC: 0R9 Upper Joints, Drainage (ICD-10-PCS; 2022-02-19)
PROC: 02HV33Z Insertion of Infusion Device into Superior Vena Cava, Percutaneous Approach (ICD-10-PCS; 2022-02-19)
DX: A41.01 Sepsis due to Methicillin susceptible Staphylococcus aureus (principal); E87.2 Acidosis; M00.9 Pyogenic arthritis, unspecified; M06.9 Rheumatoid arthritis, unspecified; M65.831 Other synovitis and tenosynovitis, right forearm; M10.9 Gout, unspecified; M25.831 Other specified joint disorders, right wrist; D63.8 Anemia in other chronic diseases classified elsewhere; E66.9 Obesity, unspecified; Z68.36 Body mass index [BMI] 36.0-36.9, adult; F17.210 Nicotine dependence, cigarettes, uncomplicated; G47.33 Obstructive sleep apnea (adult) (pediatric); R26.2 Difficulty in walking, not elsewhere classified; I11.0 Hypertensive heart disease with heart failure; I50.9 Heart failure, unspecified; K21.9 Gastro-esophageal reflux disease without esophagitis; M06.30 Rheumatoid nodule, unspecified site; T38.0X5A Adverse effect of glucocorticoids and synthetic analogues, initial encounter; D72.829 Elevated white blood cell count, unspecified; Z79.899 Other long term (current) drug therapy; Z98.42 Cataract extraction status, left eye; Z98.41 Cataract extraction status, right eye
CPT/HCPCS: 36415; 36573; 71046; 80048; 80053; 80202; 81003; 82565; 83605; 83735; 83880; 84145; 84484; 84550; 85025; 85610; 85652; 85730; 86140; 87040; 87070; 87075; 87077; 87186; 87205; 93005; 93306; 96361; 96374; 96375; 96376; 99285

== ENCOUNTER → 2022-09-10 | Outpatient (CLI) | payer MEDICARE ==
--- NOTE | 2022-09-10 19:07 | CT ---
EXAMINATION TYPE: CT urogram wo/w con DATE OF EXAM: 09/10/2022 COMPARISON: 04/16/2019 HISTORY: 61-year-old male R31.1 BENIGN ESSENTIAL MICROSCOPIC HEMATURIA. Gross microscopic hematuria TECHNIQUE: Contiguous axial scanning of the abdomen and pelvis performed without and with IV Contrast , patient injected with 100cc mL of Isovue 370. Delayed images through the kidneys and bladder were o btained. Coronal/sagittal reconstructions performed. 3 reconstructions generated on a dedicated [employer] workstation. CT DLP: 3977.5 mGycm Automated exposure control for dose reduction was used. FINDINGS: Heart upper limits of normal in size without pericardial effusion. Right main pulmonary artery is par tially visualized and appears to measure larger 2.9 cm suggesting underlying pulmonary hypertension. There is a small left pleural effusion with adjacent atelectasis. Previous nodularity at the posterior right base smaller at 1.9 cm versus 2.8 cm, previously. This sug gests a benign etiology. Tiny hiatal hernia. Liver mildly enlarged at 19.2 cm. No suspicious focal liver lesion is seen. Portal venous system is p atent. No biliary ductal dilatation. Gallbladder, adrenal glands, spleen, and pancreas within normal limits. A few scattered benign renal cortical cysts are present measuring up to 9 mm the right kidney and 2.2 cm and the left kidney. This larger 2.2 cm left renal cyst previously measured 1.6 cm in 2019. No suspicious renal mass, renal calculus, or hydronephrosis is seen. Symmetric uptake and excretion o f contrast from both kidneys. Only a short segment of the distal left ureter remains nonopacified but no abnormal soft tissue thickening is seen here. Remainder of the ureters show no gross abnormal. The posterior third opacified bladder shows no suspicious filling defect. Prostate gland is mildly enlarged at 4.7 cm wide with central calcifications. No dilated small bowel, free fluid, free air. No mesenteric or retroperitoneal lymphadenopathy. Mild atherosclerotic calcifications infrarenal abdominal aorta and common iliac arteries. Normal appendix. There is mild stool burden. Redundant sigmoid colon with mid sigmoid diverticulosis. No pericolonic inflammatory change. No abnormal fluid collection in the pelvis. Some scattered prominent external iliac chain lymph nodes measuring up to 1.0 cm remain unchanged from 2019 compatible with a benign etiology. Bones: Mild to moderate degenerative change of both hips. Accentuated mid to lower thoracic kyphosis. IMPRESSION: 1. SCATTERED BENIGN RENAL CORTICAL CYSTS MEASURING UP TO 2.2 CM. NO SUSPICIOUS RENAL MASS, NEPHROLITH IASIS, OR HYDRONEPHROSIS. NO SUSPICIOUS URETERAL LESION. 2. MILD PROSTATOMEGALY 4.7 CM WIDE. 3. Redundant sigmoid colon with mid sigmoid diverticulosis. 4. Small left pleural effusion with adjacent atelectasis. This is abnormal; correlate as to etiology. 5. Partially visualized right main pulmonary artery appears enlarged suggesting underlying pulmonary arterial hypertension. Clinically correlate.
== END | disposition home or self-care (01) ==
LOC: RADCTMAIN 13:59
PROVIDERS: ATTEND Urology
DX: N40.0 Benign prostatic hyperplasia without lower urinary tract symptoms (principal); J90 Pleural effusion, not elsewhere classified; J98.11 Atelectasis; N28.1 Cyst of kidney, acquired; K57.30 Diverticulosis of large intestine without perforation or abscess without bleeding
CPT/HCPCS: 74178; 74400; Q9967

== ENCOUNTER 2023-07-02 17:42 | Inpatient (IN) | payer MEDICARE ==
--- NOTE | 2023-07-02 17:58 | ED ---
General Adult HPI <Joanne Ness - Last Filed: 07/02/23 17:59> <Zahra Mistry - Last Filed: 07/02/23 20:09> - General Stated complaint: UTI Time Seen by Provider: 07/02/23 17:57 - History of Present Illness Initial comments: 62-year-old male presents emergency Department with chief complaint of fever, chills. He was sent in by urgent care. He reports that his heart rate was elevated but he is not really sure why they sent him in. He also reports urinary frequency. Patient is on Humira (Joanne Ness) 62-year-old male presenting with chief complaint of fever. Patient has been having fever and frequent urination for about 2 days. Son at bedside states that they went to urgent care today and he was positive for UTI. He also had some generalized pain on palpation of the abdomen. Patient denies any dysuria or hematuria. Denies flank pain. No vomiting. No diarrhea. No chest pain or difficulty breathing. (Zahra Mistry) - Related Data Home Medications Medication Instructions Recorded Confirmed Famotidine [Pepcid] 20 mg PO BID 02/12/22 02/12/22 carvediloL [Coreg] 3.125 mg PO BID 02/12/22 02/12/22 lisinopriL [Zestril] 5 mg PO DAILY 02/12/22 02/12/22 predniSONE See Taper PO DAILY 02/12/22 02/12/22 Previous Rx's Medication Instructions Recorded HYDROcodone/APAP 7.5-325MG [[place] 1 tab PO Q4H PRN #18 tab 02/13/22 7.5-325] Ibuprofen [Motrin] 600 mg PO Q6HR PRN #30 tab 02/13/22 ceFAZolin [Kefzol] 2 gm IVP Q8HR #126 each 02/19/22 Allergies Allergy/AdvReac Type Severity Reaction Status Date / Time No Known Allergies Allergy Verified 02/12/22 10:47 Review of Systems ROS Other: All systems not noted in ROS Statement are negative. <Joanne Ness - Last Filed: 07/02/23 17:59> ROS Other: All systems not noted in ROS Statement are negative. <Zahra Mistry - Last Filed: 07/02/23 20:09> ROS Statement: Those systems with pertinent positive or pertinent negative responses have been documented in the HPI. Past Medical History Past Medical History: Hypertension, Rheumatoid Arthritis (RA) History of Any Multi-Drug Resistant Organisms: None Reported Additional Past Surgical History / Comment(s): cataracts, colonoscopy Past Psychological History: No Psychological Hx Reported Smoking Status: Current every day smoker Past Alcohol Use History: None Reported Past Drug Use History: None Reported <Joanne Ness - Last Filed: 07/02/23 17:59> General Exam <Joanne Ness - Last Filed: 07/02/23 17:59> Limitations: no limitations General appearance: alert, in no apparent distress Head exam: Present: atraumatic, normocephalic, normal inspection Eye exam: Present: normal appearance, EOMI. Absent: scleral icterus, periorbital swelling Neck exam: Present: normal inspection, full ROM Respiratory exam: Present: normal lung sounds bilaterally. Absent: respiratory distress, wheezes, rales, rhonchi, stridor Cardiovascular Exam: Present: regular rate, normal rhythm, normal heart sounds. Absent: systolic murmur, diastolic murmur, rubs, gallop, clicks GI/Abdominal exam: Present: soft. Absent: distended, tenderness, guarding, rebound, rigid Neurological exam: Present: alert, oriented X3, CN II-XII intact Psychiatric exam: Present: normal affect, normal mood Skin exam: Present: warm, dry, intact, normal color. Absent: rash <Zahra Mistry - Last Filed: 07/02/23 20:09> - General Exam Comments Initial Comments: Visual Physical Exam Vital signs reviewed General: Well-appearing, nontoxic, no acute distress. Head: Normocephalic, atraumatic Eyes: PERRLA, EOMI ENT: Airway patent Chest: Nonlabored breathing Skin: No visual rash, normal skin tone Neuro: Alert and oriented 3 Musculoskeletal: No gross abnormalities (Joanne Ness) Course Vital Signs 07/02/23 17:52 Temperature 103.1 F H Pulse Rate 111 H Respiratory 20 Rate Blood Pressure 105/53 O2 Sat by Pulse 94 L Oximetry Medical Decision Making <Joanne Ness - Last Filed: 07/02/23 17:59> - Lab Data Result diagrams: 07/02/23 19:06 07/02/23 19:06 <FedeMarleyorsaura - Last Filed: 07/02/23 20:09> - Medical Decision Making I completed the QuickNote portion of this chart. Electronically signed by Joanne Ness PA-C. (Joanne Ness) Was pt. sent in by a medical professional or institution (GARRETT Hair, [employer]AGE SUPERVISOR, urgent care, hospital, or penitentiary...) When possible be specific @ -Sent by urgent care Did you speak to anyone other than the patient for history (EMS, parent, family, police, friend...)? What history was obtained from this source @ -Son at bedside Did you review nursing and triage notes (agree or disagree)? Why? @ -I reviewed and agree with nursing and triage notes Were old charts reviewed (outside hosp., previous admission, EMS record, old EKG, old radiological studies, urgent care reports/EKG's, penitentiary records)? Report findings @ -No old charts were reviewed Differential Diagnosis (chest pain, altered mental status, abdominal pain women, abdominal pain men, vaginal bleeding, weakness, fever, dyspnea, syncope, headache, dizziness, GI bleed, back pain, seizure, CVA, palpatations, mental health, musculoskeletal)? @ - MDM Differential Fever: Pneumonia, viral URI, endocarditis, myocarditis, pericarditis, otitis, sinusitis, peritonsillar Abscess, retropharyngeal Abscess, epiglottitis, peritonitis, appendicitis, Olive cystitis, diverticulitis, hepatitis, colitis, UTI, PID, TOA, pyelonephritis, prostatitis, epididymitis, meningitis, encephalitis, pulmonary embolism, CVA, thyroid storm, pancreatitis, adrenal crisis, cavernous sinus thrombosis this is not meant to be an all-inclusive list. EKG interpreted by me (3pts min.). @ -As above X-rays interpreted by me (1pt min.). @ -Chest x-ray shows no acute process CT interpreted by me (1pt min.). @ -None done U/S interpreted by me (1pt. min.). @ -None done What testing was considered but not performed or refused? (CT, X-rays, U/S, labs)? Why? @ -None What meds were considered but not given or refused? Why? @ -None Did you discuss the management of the patient with other professionals (gallo davis i.e. , PA, SALVAGE SUPERVISOR, lab, RT, psych nurse, social science teacher, reversing mill roller, teacher, administrative services officer, rehabilitation case coordinator)? Give summary @ -I spoke with Dr. Salomon who accepted admission Was smoking cessation discussed for >3mins.? @ -No Was critical care preformed (if so, how long)? @ -No Were there social determinants of health that impacted care today? How? (Homelessness, low income, unemployed, alcoholism, drug addiction, transportation, low edu. Level, literacy, decrease access to med. care, [facility], rehab)? @ -No Was there de-escalation of care discussed even if they declined (Discuss DNR or withdrawal of care, Hospice)? DNR status @ -No What co-morbidities impacted this encounter? (DM, HTN, Smoking, COPD, CAD, Cancer, CVA, ARF, Chemo, Hep., AIDS, mental health diagnosis, sleep apnea, morbid obesity)? @ -None Was patient admitted / discharged? Hospital course, mention meds given and route, prescriptions, significant lab abnormalities, going to OR and other pertinent info. @ -62-year-old male presented with chief complaint of fever and frequent urination. Patient is febrile and tachycardic upon arrival. WBC 16.7. Lactic acid 2.3. Urine is positive for UTI. Appears to also have acute kidney injury with creatinine 1.55. BUN 23. Patient is started on 2 L fluid bolus and placed on maintenance rate of 130 mL per hour. He is given Rocephin after blood cultures are drawn. He will be admitted. Patient is agreeable to this plan. I discussed this case with my attending Dr. Arciniega. Undiagnosed new problem with uncertain prognosis? @ -No Drug Therapy requiring intensive monitoring for toxicity (Heparin, Nitro, Insulin, Cardizem)? @ -No Were any procedures done? @ -No Diagnosis/symptom? @ -UTI, sepsis, acute kidney injury Acute, or Chronic, or Acute on Chronic? @ -Acute Uncomplicated (without systemic symptoms) or Complicated (systemic symptoms)? @ -Complicated Side effects of treatment? @ -No Exacerbation, Progression, or Severe Exacerbation? @ -No Poses a threat to life or bodily function? How? (Chest pain, [place], [place], pneumonia, PE, COPD, DKA, ARF, appy, cholecystitis, CVA, Diverticulitis, Homicidal, Suici millie, threat to staff... and all critical care pts) @ yes (Zahra Mistry) - Lab Data Lab Results 07/02/23 07/02/23 07/02/23 Range/Units 18:28 19:06 19:06 WBC 16.7 H (3.8-10.6) k/uL RBC 4.17 L (4.30-5.90) m/uL Hgb 13.3 (13.0-17.5) gm/dL Hct 39.5 (39.0-53.0) % MCV 94.8 (80.0-100.0) fL MCH 31.9 (25.0-35.0) pg MCHC 33.6 (31.0-37.0) g/dL RDW 13.9 (11.5-15.5) % Plt Count 258 (150-450) k/uL MPV 8.0 Neutrophils % 90 % Lymphocytes % 4 % Monocytes % 5 % Eosinophils % 0 % Basophils % 0 % Neutrophils # 15.0 H (1.3-7.7) k/uL Lymphocytes # 0.6 L (1.0-4.8) k/uL Monocytes # 0.9 (0-1.0) k/uL Eosinophils # 0.1 (0-0.7) k/uL Basophils # 0.0 (0-0.2) k/uL Sodium 131 L (137-145) mmol/L Potassium 4.2 (3.5-5.1) mmol/L Chloride 97 L (98-107) mmol/L Carbon Dioxide 25 (22-30) mmol/L Anion Gap 9 mmol/L BUN 23 H (9-20) mg/dL Creatinine 1.55 H (0.66-1.25) mg/dL Est GFR (CKD-EPI)AfAm 54 (>60 ml/min/1.73 sqM) Est GFR (CKD-EPI)NonAf 47 (>60 ml/min/1.73 sqM) Glucose 122 H (74-99) mg/dL Plasma Lactic Acid Gregorio (0.7-2.0) mmol/L Calcium 8.5 (8.4-10.2) mg/dL Total Bilirubin 0.9 (0.2-1.3) mg/dL AST 68 H (17-59) U/L ALT 48 (4-49) U/L Alkaline Phosphatase 91 (38-126) U/L Total Protein 7.9 (6.3-8.2) g/dL Albumin 3.1 L (3.5-5.0) g/dL Urine Color Yellow Urine Appearance Cloudy (Clear) Urine pH 6.0 (5.0-8.0) Ur Specific [place] 1.015 (1.001-1.035) Urine Protein Trace H (Negative) Urine Glucose (UA) Negative (Negative) Urine Ketones Negative (Negative) Urine Blood Small H (Negative) Urine Nitrite Negative (Negative) Urine Bilirubin Negative (Negative) Urine Urobilinogen 2.0 (<2.0) mg/dL Ur Leukocyte Esterase Large H (Negative) Urine RBC 6 H (0-5) /hpf Urine WBC 178 H (0-5) /hpf Urine WBC Clumps Many H (None) /hpf Ur Squamous Epith Cells <1 (0-4) /hpf Urine Bacteria Occasional H (None) /hpf Urine Mucus Rare H (None) /hpf 07/02/23 Range/Units 19:06 WBC (3.8-10.6) k/uL RBC (4.30-5.90) m/uL Hgb (13.0-17.5) gm/dL Hct (39.0-53.0) % MCV (80.0-100.0) fL MCH (25.0-35.0) pg MCHC (31.0-37.0) g/dL RDW (11.5-15.5) % Plt Count (150-450) k/uL MPV Neutrophils % % Lymphocytes % % Monocytes % % Eosinophils % % Basophils % % Neutrophils # (1.3-7.7) k/uL Lymphocytes # (1.0-4.8) k/uL Monocytes # (0-1.0) k/uL Eosinophils # (0-0.7) k/uL Basophils # (0-0.2) k/uL Sodium (137-145) mmol/L Potassium (3.5-5.1) mmol/L Chloride (98-107) mmol/L Carbon Dioxide (22-30) mmol/L Anion Gap mmol/L BUN (9-20) mg/dL Creatinine (0.66-1.25) mg/dL Est GFR (CKD-EPI)AfAm (>60 ml/min/1.73 sqM) Est GFR (CKD-EPI)NonAf (>60 ml/min/1.73 sqM) Glucose (74-99) mg/dL Plasma Lactic Acid Gregorio 2.3 H* (0.7-2.0) mmol/L Calcium (8.4-10.2) mg/dL Total Bilirubin (0.2-1.3) mg/dL AST (17-59) U/L ALT (4-49) U/L Alkaline Phosphatase (38-126) U/L Total Protein (6.3-8.2) g/dL Albumin (3.5-5.0) g/dL Urine Color Urine Appearance (Clear) Urine pH (5.0-8.0) Ur Specific [place] (1.001-1.035) Urine Protein (Negative) Urine Glucose (UA) (Negative) Urine Ketones (Negative) Urine Blood (Negative) Urine Nitrite (Negative) Urine Bilirubin (Negative) Urine Urobilinogen (<2.0) mg/dL Ur Leukocyte Esterase (Negative) Urine RBC (0-5) /hpf Urine WBC (0-5) /hpf Urine WBC Clumps (None) /hpf Ur Squamous Epith Cells (0-4) /hpf Urine Bacteria (None) /hpf Urine Mucus (None) /hpf Disposition <Joanne Ness - Last Filed: 07/02/23 17:59> Time of Disposition: 20:08 <Zahra Mistry - Last Filed: 07/02/23 20:09> Clinical Impression: Sepsis secondary to UTI, DOMENICA (acute kidney injury) Disposition: ADMITTED IP TO THIS HOSP Condition: Serious Referrals: Margarito Kulkarni DO [Primary Care Provider] - 1-2 days
--- NOTE | 2023-07-02 18:51 | XR ---
EXAMINATION TYPE: XR chest 2V DATE OF EXAM: 07/02/2023 6:45 PM COMPARISON: Chest radiographs from 02/12/2022 TECHNIQUE: XR chest 2V Frontal and lateral views of the chest. CLINICAL INDICATION:Male, 62 years old with history of fever; FINDINGS: Lungs/Pleura: Bibasilar atelectasis. No evidence for pneumothorax, pleural effusion or focal consolid ation. Pulmonary vascularity: Unremarkable. Heart/mediastinum: Cardiomediastinal silhouette is unremarkable. Musculoskeletal: No acute osseous pathology. IMPRESSION: Basilar atelectasis, No acute cardiopulmonary disease/process.
[2023-07-02 19:01] LABS: Appearance,Urine Cloudy (Clear); Bacteria,Urine Occasional /hpf; Bilirubin,Urine Negative (Negative); Blood,Urine Small (Negative); Color,Urine Yellow; Glucose,Urine (UA) Negative (Negative); Ketones,Urine Negative (Negative); Leukocyte Esterase,Urine Large (Negative); Mucus,Urine Rare /hpf; Nitrite,Urine Negative (Negative); Protein,Urine Trace (Negative); RBC,Urine 6 /hpf (0-5); Specific Gravity,Urine 1.015 (1.001-1.035); Squamous Epithelial Cell,Urine <1 /hpf (0-4); WBC,Urine 178 /hpf (0-5)
[2023-07-02 19:17] LABS: Basophils % (A) 0 %; Eosinophils # (A) 0.1 k/uL (0-0.7); Eosinophils % (A) 0 %; HCT 39.5 % (39.0-53.0); HGB 13.3 gm/dL (13.0-17.5); Lymphocytes # (A) 0.6 k/uL (1.0-4.8); Lymphocytes % (A) 4 %; MCH 31.9 pg (25.0-35.0); MCHC 33.6 g/dL (31.0-37.0); MCV 94.8 fL (80.0-100.0); Monocytes # (A) 0.9 k/uL (0-1.0); Monocytes % (A) 5 %; Neutrophils % (A) 90 %; Platelet Count 258 k/uL (150-450); RBC 4.17 m/uL (4.30-5.90); RDW 13.9 % (11.5-15.5); WBC 16.7 k/uL (3.8-10.6)
[2023-07-02 19:33] LABS: ALT 48 U/L (4-49); AST 68 U/L (17-59); African American GFR (CKD) 54 (>60 ml/min/1.73 sqM); Albumin 3.1 g/dL (3.5-5.0); Alkaline Phosphatase 91 U/L (38-126); Anion Gap 9 mmol/L; Blood Urea Nitrogen 23 mg/dL (9-20); Calcium 8.5 mg/dL (8.4-10.2); Carbon Dioxide 25 mmol/L (22-30); Chloride 97 mmol/L (98-107); Glucose 122 mg/dL (74-99); Non-African American GFR(CKD) 47 (>60 ml/min/1.73 sqM); Potassium 4.2 mmol/L (3.5-5.1); Sodium 131 mmol/L (137-145); Total Bilirubin 0.9 mg/dL (0.2-1.3); Total Protein 7.9 g/dL (6.3-8.2)
[2023-07-02] MEDS ORDERED: cefTRIAXone IN SWFI 1,000 MG/10 ML SYRINGE IVP STA (19:37)
[2023-07-02] MEDS ORDERED: SODIUM CHLORIDE 0.9% 2,000 ML IV ONE (19:37)
[2023-07-02] MEDS ORDERED: ACETAMINOPHEN TAB 325 MG TAB PO STA (19:45)
[2023-07-02] MEDS ORDERED: IBUPROFEN 400 MG TAB PO STA (19:45)
[2023-07-02] MEDS ORDERED: IBUPROFEN 400 MG TAB PO PRN (19:48)
[2023-07-02] MEDS: SODIUM CHLORIDE 0.9% 1,000 ML IV SCH (22:07)
[2023-07-02] MEDS ORDERED: NALOXONE 0.4 MG/ML 1 ML VIAL IV PRN (23:57)
[2023-07-03] MEDS: ACETAMINOPHEN TAB 325 MG TAB PO PRN ×2 (00:18→16:21)
[2023-07-03] MEDS: SODIUM CHLORIDE 0.9% 1,000 ML IV SCH ×5 (06:38→14:43)
[2023-07-03 11:37] LABS: African American GFR (CKD) 69 (>60 ml/min/1.73 sqM); Anion Gap 6 mmol/L; Blood Urea Nitrogen 19 mg/dL (9-20); Calcium 7.7 mg/dL (8.4-10.2); Carbon Dioxide 31 mmol/L (22-30); Chloride 98 mmol/L (98-107); Glucose 105 mg/dL (74-99); Non-African American GFR(CKD) 59 (>60 ml/min/1.73 sqM); Potassium 3.8 mmol/L (3.5-5.1); Sodium 135 mmol/L (137-145)
[2023-07-03] MEDS ORDERED: CALCIUM CARBONATE 500 MG CHEWABLE PO PRN (14:16)
[2023-07-03] MEDS ORDERED: LACTULOSE 20 GM/30 ML CUP PO PRN (14:16)
[2023-07-03] MEDS ORDERED: ALPRAZolam 0.25 MG TAB PO PRN (14:16)
[2023-07-03] MEDS ORDERED: ONDANSETRON 4 MG/2 ML VIAL IVP PRN (14:16)
[2023-07-03] MEDS ORDERED: MELATONIN 3 MG TABLET PO PRN (14:16)
--- NOTE | 2023-07-03 14:27 | P.HPIM ---
History of Present Illness H&P Date: 07/03/23 Chief Complaint: Fever This is a pleasant 62-year-old patient, follows with Dr. Kulkarni. Patient has a long-standing history of rheumatoid arthritis and does get Humira injections. About 2 weeks ago patient did have some pain in his left flank that subsequently settled down. About 4 days ago that is a Friday patient started having fevers. His bigger rather high. Also had some chills. Noticed some urinary frequency. No dysuria. Decrease in appetite. No respiratory symptoms. No skin breakdown. Documented to have a temperature 103.1 in the ER. Source felt to be urine. Review of systems: GEN.: Fever chills decreased appetite EYES: None HEENT: None NECK: None RESPIRATORY: None CARDIOVASCULAR: None GASTROINTESTINAL: None GENITOURINARY: As above MUSCULOSKELETAL: Joint pains LYMPHATICS: None HEMATOLOGICAL: None PSYCHIATRY: None NEUROLOGICAL: None Past medical history to include: Essential hypertension, rheumatoid arthritis Social history: Patient's sister is currently living with him. Patient stopped smoking 2 months ago. Smoked for many years. No alcohol. Physical examination: VITAL SIGNS: 103.1, 111, 20, 105/53, 94% room air GENERAL: BMI 36.5, declining but awake tired. EYES: Pupils equal. Conjunctiva normal. HEENT: External appearance of nose and ears normal, oral cavity grossly normal. NECK: JVD not raised; masses not palpable. HEART: First and second heart sounds are normal; no edema. LUNGS: Respiratory rate normal; decreased breath sounds. ABDOMEN: Soft, nontender, liver spleen not palpable, no masses palpable. PSYCH: Alert and oriented x3; mood and affect normal. MUSCULOSKELETAL:No Clubbing/cyanosis;muscles-grossly intact. Evidence of RA in several joints. Rheumatoid nodules. NEUROLOGICAL: Cranial nerves grossly intact; no facial asymmetry, power and sensation grossly intact. LYMPHATICS: No lymph nodes palpable in the axilla and neck INVESTIGATIONS, reviewed in the clinical context: White count 16.7 hemoglobin 13.3 platelets 258 sodium 131 potassium 4.2 BUN 23 creatinine 1.55 Lactic acid 2.3 UA positive for leukoesterase, WBC 178, bacteria occasional Influenza type A, B, RSV, COVID-19: Not detected Chest x-ray film personally reviewed by me-possible atelectasis Previous labs: March 2022: Creatinine 1.1 Assessment and plan: -Sepsis likely from UTI. IV ceftriaxone. 1 g every 12. Blood cultures pending -Acute UTI with probable cystitis. IV ceftriaxone. -Abnormal renal function. Likely acute on chronic. Repeat labs with IV fluids. Renal ultrasound. -Essential hypertension, on diuretics. Currently blood pressure running low. Hold diuretics. -Obesity BMI 36.5 Weight loss measures -Advanced rheumatoid arthritis with rheumatoid nodules. Patient Humira. Hold off for now. IV fluids. IV ceftriaxone. Discussed with the patient. Past Medical History Past Medical History: Hypertension, Rheumatoid Arthritis (RA) Additional Past Medical History / Comment(s): rheumatoid arthritis History of Any Multi-Drug Resistant Organisms: None Reported Past Surgical History: Orthopedic Surgery Additional Past Surgical History / Comment(s): cataracts, colonoscopy Past Psychological History: No Psychological Hx Reported Smoking Status: Current every day smoker Past Alcohol Use History: None Reported Past Drug Use History: None Reported Medications and Allergies Home Medications Medication Instructions Recorded Confirmed Type Cholecalciferol [Vitamin D3 (25 25 mcg PO DAILY 07/02/23 07/02/23 History Mcg = 1000 Iu)] Humira (Unknown Dose) 1 dose SQ Q14D 07/02/23 07/02/23 History Triamterene/Hydrochlorothiazid 1 cap PO DAILY 07/02/23 07/02/23 History [Triamterene-Hctz 37.5-25 mg Cp] Allergies Allergy/AdvReac Type Severity Reaction Status Date / Time No Known Allergies Allergy Verified 07/02/23 20:13 Physical Exam Vitals: Vital Signs Temp Pulse Resp BP Pulse Ox 07/03/23 07:34 98.8 F 78 16 87/56 92 L 07/03/23 06:31 72 18 119/77 92 L 07/03/23 02:54 81 18 96/55 93 L 07/03/23 01:35 99.7 F H 07/02/23 22:16 98.7 F 91 18 108/63 94 L 07/02/23 17:52 103.1 F H 111 H 20 105/53 94 L Intake and Output 07/02/23 07/03/23 07/03/23 22:59 06:59 14:59 Other: Weight 108.862 kg Results CBC & Chem 7: 07/02/23 19:06 07/03/23 10:51 Labs: Abnormal Lab Results - Last 24 Hours (Table) 07/02/23 07/02/23 07/02/23 Range/Units 18:28 19:06 19:06 WBC 16.7 H (3.8-10.6) k/uL RBC 4.17 L (4.30-5.90) m/uL Neutrophils # 15.0 H (1.3-7.7) k/uL Lymphocytes # 0.6 L (1.0-4.8) k/uL Sodium 131 L (137-145) mmol/L Chloride 97 L (98-107) mmol/L BUN 23 H (9-20) mg/dL Creatinine 1.55 H (0.66-1.25) mg/dL Glucose 122 H (74-99) mg/dL Plasma Lactic Acid Gregorio (0.7-2.0) mmol/L AST 68 H (17-59) U/L Albumin 3.1 L (3.5-5.0) g/dL Urine Protein Trace H (Negative) Urine Blood Small H (Negative) Ur Leukocyte Esterase Large H (Negative) Urine RBC 6 H (0-5) /hpf Urine WBC 178 H (0-5) /hpf Urine WBC Clumps Many H (None) /hpf Urine Bacteria Occasional H (None) /hpf Urine Mucus Rare H (None) /hpf 07/02/23 Range/Units 19:06 WBC (3.8-10.6) k/uL RBC (4.30-5.90) m/uL Neutrophils # (1.3-7.7) k/uL Lymphocytes # (1.0-4.8) k/uL Sodium (137-145) mmol/L Chloride (98-107) mmol/L BUN (9-20) mg/dL Creatinine (0.66-1.25) mg/dL Glucose (74-99) mg/dL Plasma Lactic Acid Gregorio 2.3 H* (0.7-2.0) mmol/L AST (17-59) U/L Albumin (3.5-5.0) g/dL Urine Protein (Negative) Urine Blood (Negative) Ur Leukocyte Esterase (Negative) Urine RBC (0-5) /hpf Urine WBC (0-5) /hpf Urine WBC Clumps (None) /hpf Urine Bacteria (None) /hpf Urine Mucus (None) /hpf
[2023-07-03] MEDS: ENOXAPARIN 40 MG/0.4 ML SYRINGE SQ SCH (15:21)
--- NOTE | 2023-07-04 07:47 | US ---
EXAMINATION TYPE: US kidneys/renal and bladder DATE OF EXAM: 07/04/2023 COMPARISON: CT urogram 09/10/2022 CLINICAL INDICATION: Male, 62 years old with history of Evaluate for CK D; Recent kidney infection. EXAM MEASUREMENTS: Right Kidney: 10.7 x 6.1 x 5.3 cm Left Kidney: 15.0 x 6.8 x 6.5 cm Right Kidney: No hydronephrosis or masses seen Left Kidney: Upper lateral pole complex cystic lesion= 3.9 x 2.8 x 2.7 cm Bladder: distended, anechoic Bilateral Jets not seen There is no evidence for hydronephrosis at this point in time. No nephrolithiasis is seen. Cortical medullary differentiation is maintained bilaterally. Complex left upper pole lateral anechoic lesion identified with echogenic focus. This corresponds to a nonenhancing cyst seen on prior CT. No perinep hric fluid collections identified. The urinary bladder is anechoic and distended. Bilateral ureteral jets are not seen. IMPRESSION: 1. No hydronephrosis or perinephric fluid collections. 2. Minimally complex left upper pole cystic lesion with echogenic focus. This corresponds to a benign cyst on prior CT urogram.
[2023-07-04 07:50] LABS: Basophils % (A) 0 %; Eosinophils % (A) 0 %; HCT 35.2 % (39.0-53.0); HGB 11.9 gm/dL (13.0-17.5); Lymphocytes % (A) 10 %; MCH 32.7 pg (25.0-35.0); MCHC 33.7 g/dL (31.0-37.0); MCV 96.9 fL (80.0-100.0); Monocytes # (A) 0.3 k/uL (0-1.0); Monocytes % (A) 3 %; Neutrophils # (A) 8.5 k/uL (1.3-7.7); Neutrophils % (A) 85 %; Platelet Count 199 k/uL (150-450); RBC 3.63 m/uL (4.30-5.90)
[2023-07-04 07:59] LABS: African American GFR (CKD) 83 (>60 ml/min/1.73 sqM); Anion Gap 6 mmol/L; Blood Urea Nitrogen 14 mg/dL (9-20); Calcium 7.6 mg/dL (8.4-10.2); Carbon Dioxide 27 mmol/L (22-30); Chloride 103 mmol/L (98-107); Glucose 87 mg/dL (74-99); Non-African American GFR(CKD) 71 (>60 ml/min/1.73 sqM); Potassium 4.1 mmol/L (3.5-5.1); Sodium 136 mmol/L (137-145)
[2023-07-04] MEDS: ENOXAPARIN 40 MG/0.4 ML SYRINGE SQ SCH (11:46)
[2023-07-04] MEDS: ACETAMINOPHEN TAB 325 MG TAB PO PRN ×2 (11:50→19:59)
--- NOTE | 2023-07-04 17:54 | P.PN ---
Progress Note - Text Progress Note Date: 07/04/23 Chief Complaint: Fever This is a pleasant 62-year-old patient, follows with Dr. Kulkarni. Patient has a long-standing history of rheumatoid arthritis and does get Humira injections. About 2 weeks ago patient did have some pain in his left flank that subsequently settled down. About 4 days ago that is a Friday patient started having fevers. His bigger rather high. Also had some chills. Noticed some urinary frequency. No dysuria. Decrease in appetite. No respiratory symptoms. No skin breakdown. Documented to have a temperature 103.1 in the ER. Source felt to be urine. July 04: No fever today. Urine and blood culture both growing gram-negative bacilli. Patient feeling better. Eating better. Continue IV ceftriaxone. Continue IV fluids. ID consulted. Active Medications Acetaminophen (Acetaminophen Tab 325 Mg Tab) 650 mg PO Q6HR PRN PRN Reason: Fever and/ or Pain Last Admin: 07/04/23 11:50 Dose: 650 mg Alprazolam (Alprazolam 0.25 Mg Tab) 0.25 mg PO Q6HR PRN PRN Reason: Anxiety Calcium Carbonate/Glycine (Calcium Carbonate 500 Mg Chewable) 1,000 mg PO Q4HR PRN PRN Reason: Dyspepsia Enoxaparin Sodium (Enoxaparin 40 Mg/0.4 Ml Syringe) 40 mg SQ DAILY [facility] Last Admin: 07/04/23 11:46 Dose: 40 mg Sodium Chloride (Saline 0.9%) 1,000 mls @ 130 mls/hr IV .Q7H42M [facility] Last Admin: 07/03/23 14:43 Dose: 130 mls/hr Ceftriaxone Sodium 2 gm/ (Sodium Chloride) 50 mls @ 100 mls/hr IVPB Q24HR [facility] Last Admin: 07/04/23 11:46 Dose: 100 mls/hr Lactulose (Lactulose 20 Gm/30 Ml Cup) 20 gm PO DAILY PRN PRN Reason: Constipation Melatonin (Melatonin 3 Mg Tablet) 3 mg PO HS PRN PRN Reason: Insomnia Naloxone HCl (Naloxone 0.4 Mg/Ml 1 Ml Vial) 0.2 mg IV Q2M PRN PRN Reason: Opioid Reversal Ondansetron HCl (Ondansetron 4 Mg/2 Ml Vial) 4 mg IVP Q8HR PRN PRN Reason: Nausea And Vomiting Past medical history to include: Essential hypertension, rheumatoid arthritis Social history: Patient's sister is currently living with him. Patient stopped smoking 2 months ago. Smoked for many years. No alcohol. Physical examination: VITAL SIGNS: 99.3, 80, 17, 135/78, 92% room air GENERAL: Laying in bed, comfortable EYES: Pupils equal. Conjunctiva normal. HEENT: External appearance of nose and ears normal, oral cavity grossly normal. NECK: JVD not raised; masses not palpable. HEART: First and second heart sounds are normal; no edema. LUNGS: Respiratory rate normal; decreased breath sounds. ABDOMEN: Soft, nontender, liver spleen not palpable, no masses palpable. PSYCH: Alert and oriented x3; mood and affect normal. MUSCULOSKELETAL:No Clubbing/cyanosis;muscles-grossly intact. Evidence of RA in several joints. Rheumatoid nodules. INVESTIGATIONS, reviewed in the clinical context: Renal ultrasound: Unremarkable July 04: White count and hemoglobin 11.9 platelets 1 Potassium 4.1 creatinine 1.09 White count 16.7 hemoglobin 13.3 platelets 258 sodium 131 potassium 4.2 BUN 23 creatinine 1.55 Lactic acid 2.3 UA positive for leukoesterase, WBC 178, bacteria occasional Influenza type A, B, RSV, COVID-19: Not detected Chest x-ray film personally reviewed by me-possible atelectasis Previous labs: March 2022: Creatinine 1.1 Assessment and plan: -Sepsis from UTI., Fit blood in urine culture positive for gram-negative bacilli: Clinically improving IV ceftriaxone. 1 g every 12. -Acute UTI with probable cystitis. From gram-negative bacilli. IV ceftriaxone. -Abnormal renal function. Likely acute on chronic. Repeat labs with IV fluids. Renal ultrasound unremarkable. -Essential hypertension, on diuretics. Currently blood pressure running low. Hold diuretics Blood pressure improving. -Obesity BMI 36.5 Weight loss measures -Advanced rheumatoid arthritis with rheumatoid nodules. On Humira. Hold off for now. Continue IV fluids. IV ceftriaxone. Await cultures. Repeat labs.
--- NOTE | 2023-07-04 22:29 | P.CONS ---
History of Present Illness - Reason for Consult Consult date: 07/04/23 - History of Present Illness Patient is a 62-year-old male with a past medical history of treatable hypertension rheumatoid arthritis presenting to the hospital 2 days ago for evaluation of fever patient did went to the urgent care with the patient was noticed to be tachycardic and the patient was advised to go to the hospital patient complaining of urinary frequency burning and did have some suprapubic discomfort symptom has been going on for about 2 days before presentation to the hospital patient denies any headache or URI symptoms no chest pain shortness of breath or cough and no diarrhea on presentation to the hospital he did have a fever of 103.1 F patient was not tachycardic hypotensive mild hypoxia but not requiring any supplemental oxygen patient did have a elevated white was 16.7 with a left shift creatinine 1.5 5 repeat is down to 1.09 lactic acid two-point 3 repeat is 1.6 influenza RSV and COVID testing was negative we did a positive UA with large leukocyte Estrace more than 178 WBC patient was started on Rocephin blood culture drawn coming back positive for gram-negative bacilli that has prompted this infectious disease consultation patient did have a ultrasound of the kidney and bladder area no hydronephrosis or perinephric fluid collection Past Medical History Past Medical History: Hypertension, Rheumatoid Arthritis (RA) Additional Past Medical History / Comment(s): rheumatoid arthritis History of Any Multi-Drug Resistant Organisms: None Reported Past Surgical History: Orthopedic Surgery Additional Past Surgical History / Comment(s): cataracts, colonoscopy, right wrist Past Anesthesia/Blood Transfusion Reactions: No Reported Reaction Past Psychological History: No Psychological Hx Reported Smoking Status: Former smoker Past Alcohol Use History: None Reported Past Drug Use History: None Reported - Past Family History Father History Unknown: Yes Medications and Allergies Home Medications Medication Instructions Recorded Confirmed Type Cholecalciferol [Vitamin D3 (25 25 mcg PO DAILY 07/02/23 07/02/23 History Mcg = 1000 Iu)] Humira (Unknown Dose) 1 dose SQ Q14D 07/02/23 07/02/23 History Triamterene/Hydrochlorothiazid 1 cap PO DAILY 07/02/23 07/02/23 History [Triamterene-Hctz 37.5-25 mg Cp] Allergies Allergy/AdvReac Type Severity Reaction Status Date / Time No Known Allergies Allergy Verified 07/02/23 20:13 Physical Exam Vitals: Vital Signs Temp Pulse Resp BP Pulse Ox 07/04/23 13:33 98.6 F 77 17 124/71 92 L 07/04/23 07:50 99.3 F 80 17 135/78 92 L 07/04/23 01:26 97.8 F 85 19 109/61 92 L 07/03/23 19:05 97.9 F 81 19 110/68 90 L Intake and Output 07/04/23 07/04/23 07/04/23 06:59 14:59 22:59 Other: Voiding Method Toilet # Voids 2 Results CBC & Chem 7: 07/04/23 07:06 07/04/23 07:06 Labs: Abnormal Lab Results - Last 24 Hours (Table) 07/04/23 07/04/23 Range/Units 07:06 07:06 RBC 3.63 L (4.30-5.90) m/uL Hgb 11.9 L (13.0-17.5) gm/dL Hct 35.2 L (39.0-53.0) % Neutrophils # 8.5 H (1.3-7.7) k/uL Sodium 136 L (137-145) mmol/L Calcium 7.6 L (8.4-10.2) mg/dL Microbiology - Last 24 Hours (Table) 07/02/23 18:28 Urine Culture - Preliminary Urine,Voided Gram Neg Bacilli 07/02/23 19:00 Blood Culture Gram Stain - Preliminary Blood Blood Culture - Preliminary Gram Neg Bacilli 07/02/23 18:45 Blood Culture Gram Stain - Preliminary Blood Blood Culture - Preliminary Gram Neg Bacilli Assessment and Plan Plan: 1patient present to hospital with sepsis in this patient with fever tachycardia elevated white count elevated lactic acid source likely urinary and likely from enteric gram-negative pathogen [id number] bacteremia secondary urinary source 3-Rocephin 2 g daily while waiting for the culture to finalize We will follow on clinical condition and cultures to further adjust medication if needed Thank you for this consultation we will follow the patient along with you Dictation was produced using [email or web address] dictation software. please excuse any grammatical, word or spelling errors. Time with Patient: Greater than 30
[2023-07-05] MEDS: ACETAMINOPHEN TAB 325 MG TAB PO PRN ×2 (03:15→21:11)
[2023-07-05 07:09] LABS: African American GFR (CKD) >90 (>60 ml/min/1.73 sqM); Anion Gap 4 mmol/L; Blood Urea Nitrogen 11 mg/dL (9-20); Calcium 7.7 mg/dL (8.4-10.2); Carbon Dioxide 25 mmol/L (22-30); Chloride 104 mmol/L (98-107); Glucose 116 mg/dL (74-99); Non-African American GFR(CKD) 85 (>60 ml/min/1.73 sqM); Sodium 133 mmol/L (137-145)
[2023-07-05 07:13] LABS: Potassium 4.5 mmol/L (3.5-5.1)
[2023-07-05] MEDS: SODIUM CHLORIDE 0.9% 1,000 ML IV SCH ×4 (09:19→18:04)
[2023-07-05] MEDS: ENOXAPARIN 40 MG/0.4 ML SYRINGE SQ SCH (09:20)
--- NOTE | 2023-07-05 14:06 | P.PN ---
Subjective Progress Note Date: 07/05/23 * 62-year-old patient, follows with Dr. Kulkarni. Patient has a long-standing history of rheumatoid arthritis and does get Humira injections. About 2 weeks ago patient did have some pain in his left flank that subsequently settled down. About 4 days ago that is a Friday patient started having fevers. His bigger rather high. Also had some chills. Noticed some urinary frequency. * July 04: No fever today. Urine and blood culture both growing gram-negative bacilli. Patient feeling better. Eating better. Continue IV ceftriaxone. Continue IV fluids. ID consulted. * 07/05/2023: Patient seen and evaluated bedside, patient continued to have chills, noted to have E. coli bacteremia, E. coli. Urine cultures as well continue patient on IV Rocephin Objective - Vital Signs Vital signs: Vital Signs Temp 98.4 F 07/05/23 07:10 Pulse 95 07/05/23 07:10 Resp 16 07/05/23 07:10 BP 125/71 07/05/23 07:10 Pulse Ox 93 L 07/05/23 07:10 FiO2 Intake & Output 07/04/23 07/05/23 07/05/23 18:59 06:59 18:59 Other: Voiding Method Toilet Toilet Toilet # Voids 6 2 - Exam PHYSICAL EXAMINATION: GENERAL: The patient is alert and oriented x3, not in any acute distress. Well developed, well nourished. HEENT: Pupils are round and equally reacting to light. EOMI. No scleral icterus. No conjunctival pallor. Normocephalic, atraumatic. No pharyngeal erythema. No thyromegaly. CARDIOVASCULAR: S1 and S2 present. No murmurs, rubs, or gallops. PULMONARY: Chest is clear to auscultation, no wheezing or crackles. ABDOMEN: Soft, nontender, nondistended, normoactive bowel sounds. No palpable organomegaly. MUSCULOSKELETAL: No joint swelling or deformity. EXTREMITIES: No cyanosis, clubbing, or pedal edema. NEUROLOGICAL: Gross neurological examination did not reveal any focal deficits. SKIN: No rashes. - Labs CBC & Chem 7: 07/04/23 07:06 07/05/23 06:42 Labs: Abnormal Lab Results - Last 24 Hours (Table) 07/05/23 Range/Units 06:42 Sodium 133 L (137-145) mmol/L Glucose 116 H (74-99) mg/dL Calcium 7.7 L (8.4-10.2) mg/dL Microbiology - Last 24 Hours (Table) 07/02/23 19:00 Blood Culture Gram Stain - Final Blood Blood Culture - Final Escherichia coli 07/02/23 18:45 Blood Culture Gram Stain - Final Blood Blood Culture - Final Escherichia coli 07/02/23 18:28 Urine Culture - Preliminary Urine,Voided Gram Neg Bacilli Assessment and Plan Assessment: Assessment and plan * Urinary tract infection * E. coli bacteremia * Sepsis secondary to E. coli bacteremia * Essential hypertension * History of rheumatoid arthritis with rheumatoid no delusions * Acute renal failure on admission resolved * Continue patient on IV Rocephin, blood cultures and urine cultures collected infectious disease following * Continue with fluid resuscitation * In regards to history of hypertension continue home medication Dyazide * Follow-up and basic metabolic panel CBC * Potential discharge within the next 24-48 hours if his clinical course
[2023-07-05] MEDS: LACTOBACILLUS ACIDOPHILUS/PECT 1 EACH CAPSULE PO SCH ×2 (18:03→21:11)
[2023-07-06] MEDS: SODIUM CHLORIDE 0.9% 1,000 ML IV SCH ×2 (01:16→12:10)
[2023-07-06] MEDS: ENOXAPARIN 40 MG/0.4 ML SYRINGE SQ SCH (08:24)
[2023-07-06] MEDS: LACTOBACILLUS ACIDOPHILUS/PECT 1 EACH CAPSULE PO SCH (08:25)
[2023-07-06 08:44] VITALS: BP 158/76; PULSE 75; RESP 16; TEMP 98
[2023-07-06 08:58] LABS: MCH 31.6 pg (27.0-32.0); MCHC 31.4 d/dL (32.0-37.0); MCV 100.6 FL (80.0-97.0); Mean Platelet Volume 10.2 FL (9.5-12.2); NRBC Per 100 WBC 0 X 10*3/uL (0.00-0.01); Platelet Count 219 X 10*3/uL (140-440); RBC 3.48 X 10*6/uL (4.40-5.60); RDW 14.3 % (11.5-14.5); WBC 7.53 X 10*3/uL (4.50-10.00)
[2023-07-06] MEDS ORDERED: TRIAMTERENE-HCTZ 37.5-25MG 1 EACH CAP PO SCH (09:00)
[2023-07-06 09:15] LABS: Blood Urea Nitrogen 7.3 mg/dL (9.0-27.0); Carbon Dioxide 25.2 mmol/L (21.6-31.8); Chloride 106 mmol/L (96-109); Glucose 121 mg/dL (70-110); Potassium 3.8 mmol/L (3.5-5.5); Sodium 140 mmol/L (135-145)
--- NOTE | 2023-07-06 12:17 | P.DS ---
Providers Date of admission: 07/02/23 23:54 Expected date of discharge: 07/06/23 Attending physician: Dieter Salomon Consults: 07/04/23 11:40 Consult Physician Routine Consulting Provider: Anthony Sim Consult Reason/Comments: sepsis Do you want consulting provider notified?: Yes Primary care physician: [facility] Course: 62-year-old patient, follows with Dr. Kulkarni. Patient has a long-standing history of rheumatoid arthritis and does get Humira injections. About 2 weeks ago patient did have some pain in his left flank that subsequently settled down. About 4 days ago that is a Friday patient started having fevers. His bigger rather high. Also had some chills. Noticed some urinary frequency. * July 04: No fever today. Urine and blood culture both growing gram-negative bacilli. Patient feeling better. Eating better. Continue IV ceftriaxone. Continue IV fluids. ID consulted. * 07/05/2023: Patient seen and evaluated bedside, patient continued to have chills, noted to have E. coli bacteremia, E. coli. Urine cultures as well continue patient on IV Rocephin * 07/06: Blood work reviewed, blood cultures reviewed sensitivity reviewed, discussed with infectious disease transition to oral ciprofloxacin, patient requested to follow-up with PCP post discharge GENERAL: The patient is alert and oriented x3, not in any acute distress. Well developed, well nourished. HEENT: Pupils are round and equally reacting to light. EOMI. No scleral icterus. No conjunctival pallor. Normocephalic, atraumatic. No pharyngeal erythema. No thyromegaly. CARDIOVASCULAR: S1 and S2 present. No murmurs, rubs, or gallops. PULMONARY: Chest is clear to auscultation, no wheezing or crackles. ABDOMEN: Soft, nontender, nondistended, normoactive bowel sounds. No palpable organomegaly. MUSCULOSKELETAL: No joint swelling or deformity. EXTREMITIES: No cyanosis, clubbing, or pedal edema. NEUROLOGICAL: Gross neurological examination did not reveal any focal deficits. SKIN: No rashes. Assessment and plan * Urinary tract infection * E. coli bacteremia * Sepsis secondary to E. coli bacteremia * Essential hypertension * History of rheumatoid arthritis with rheumatoid no delusions * Acute renal failure on admission resolved * Continue patient on IV Rocephin, blood cultures and urine cultures positive for E. coli * Transition to oral ciprofloxacin for discharge complete intercourse discussed with infectious disease * In regards to history of hypertension continue home medication Dyazide * Follow-up with PCP post discharge Plan - Discharge Summary Discharge Rx Participant: No New Discharge Prescriptions: New Ciprofloxacin HCl [Cipro] 500 mg PO Q12HR 10 Days #2 tab Continue Triamterene/Hydrochlorothiazid [Triamterene-Hctz 37.5-25 mg Cp] 1 cap PO DAILY Humira (Unknown Dose) 1 dose SQ Q14D Cholecalciferol [Vitamin D3 (25 Mcg = 1000 Iu)] 25 mcg PO DAILY Discharge Medication List Cholecalciferol [Vitamin D3 (25 Mcg = 1000 Iu)] 25 mcg PO DAILY 07/02/23 [History] Humira (Unknown Dose) 1 dose SQ Q14D 07/02/23 [History] Triamterene/Hydrochlorothiazid [Triamterene-Hctz 37.5-25 mg Cp] 1 cap PO DAILY 07/02/23 [History] Ciprofloxacin HCl [Cipro] 500 mg PO Q12HR 10 Days #2 tab 07/06/23 [Rx] Follow up Appointment(s)/Referral(s): Margarito Kulkarni DO [Primary Care Provider] - 1-2 days Activity/Diet/Wound Care/Special Instructions: Continue with regular diet Holding on Humira for at least 10 days post discharge. Use [id number] probiotics while on antibiotic Discharge Disposition: HOME SELF-CARE
== END 2023-07-06 14:11 | disposition home or self-care (01) | DRG 872 ==
LOC: EC 17:42 → 4SSUR 23:54
PROVIDERS: ADMIT Hospitalist; ATTEND Hospitalist
DX: A41.51 Sepsis due to Escherichia coli [E. coli] (principal); N17.9 Acute kidney failure, unspecified; N30.90 Cystitis, unspecified without hematuria; E66.9 Obesity, unspecified; F41.9 Anxiety disorder, unspecified; I10 Essential (primary) hypertension; R09.02 Hypoxemia; K59.00 Constipation, unspecified; M06.30 Rheumatoid nodule, unspecified site; Z68.36 Body mass index [BMI] 36.0-36.9, adult; Z28.310 Unvaccinated for COVID-19; Z28.21 Immunization not carried out because of patient refusal; Z20.822 Contact with and (suspected) exposure to COVID-19; Z79.899 Other long term (current) drug therapy
CPT/HCPCS: 36415; 71046; 76770; 80048; 80053; 81001; 83605; 85025; 85027; 87040; 87077; 87086; 87186; 87636; 96361; 96365; 96366; 96372; 96375; 99285

== ENCOUNTER → 2023-11-13 | Outpatient (CLI) | payer MEDICARE ==
--- NOTE | 2023-11-15 18:07 | MR ---
EXAMINATION TYPE: MR knee RT wo con DATE OF EXAM: 11/13/2023 COMPARISON: None HISTORY: RT KNEE PAIN TECHNIQUE: Multiplanar, multisequence imaging of the right knee is performed without IV contrast. FINDINGS: There is no bone contusion or fracture There are marked subchondral cysts in the medial femoral condyle. There is a tear of the anterior cruciate ligament and a small tear along the inferior surface of the body of the medial meniscus. The lateral meniscus is intact. The medial and collateral ligaments are intact. There is mild thinning of the articular cartilages and narrowing of the medial lateral joint spaces w ith mild hypertrophic spurring consistent with mild to moderate osteoarthritic change. The patellofemoral compartment is intact. There is no joint effusion. There is a 5.1 cm x 1.3 cm Bake r's cyst. IMPRESSION: 1. Tear of the anterior cruciate ligament. 2. tear of the medial meniscus. 3. Pimentel's cyst. 4. Degenerative changes of the medial lateral compartment of the knee as described above.
== END | disposition home or self-care (01) ==
LOC: RADMRIMAIN 12:52
PROVIDERS: ATTEND Orthopaedic Surgery
DX: S83.241A Other tear of medial meniscus, current injury, right knee, initial encounter (principal); M71.21 Synovial cyst of popliteal space [Baker], right knee; M17.11 Unilateral primary osteoarthritis, right knee

== ENCOUNTER → 2025-04-08 | Outpatient (CLI) | payer MEDICARE ==
--- NOTE | 2025-04-08 12:16 | XR ---
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. COMPARISON: CT urogram 09/10/2022, CT scan pelvis 04/16/2019 TECHNIQUE: Upright and supine views of the abdomen were obtained. Additional left lateral decubitus v iew of the abdomen was obtained. FINDINGS: Small bowel demonstrates no evidence for dilatation or air fluid levels. Gas and fecal material is seen in non-distended colon. No convincing evidence for pneumoperitoneum. Prostate calcifications redemonstrated. Elevation of the right hemidiaphragm. The osseous structures are intact. Degenerative changes of the visualized thoracolumbar spine. IMPRESSION: Overall nonobstructive bowel gas pattern. [facility], , 04/08/2025 12:14 PM
[2025-04-08 15:48] LABS: Basophils # (A) 0.07 X 10*3/uL (0.00-0.10); Basophils % (A) 0.8 %; Eosinophils # (A) 0.09 X 10*3/uL (0.04-0.35); HCT 52.2 % (39.6-50.0); HGB 17.6 g/dL (13.0-17.0); Lymphocytes # (A) 2.59 X 10*3/uL (0.90-5.00); Lymphocytes % (A) 29.5 %; MCHC 33.7 g/dL (32.0-37.0); MCV 97.8 FL (80.0-97.0); Mean Platelet Volume 10.8 FL (9.5-12.2); NRBC Per 100 WBC 0 X 10*3/uL (0.00-0.01); Neutrophils # (A) 5.28 X 10*3/uL (1.80-7.70); Neutrophils % (A) 60.1 %; Platelet Count 160 X 10*3/uL (140-440); RBC 5.34 X 10*6/uL (4.40-5.60); RDW 13.3 % (11.5-14.5); WBC 8.78 X 10*3/uL (4.50-10.00)
[2025-04-08 16:42] LABS: ALT 39 U/L (10-49); AST 29 U/L (14-35); Albumin 4.2 g/dL (3.8-4.9); Alkaline Phosphatase 66 U/L (41-126); Amylase 79 U/L (23-121); BUN/Creat Ratio 18.18 Ratio (12.00-20.00); Calcium 9.7 mg/dL (8.7-10.3); Carbon Dioxide 25.2 mmol/L (21.6-31.8); Chloride 102 mmol/L (96-109); Glucose 89 mg/dL (70-110); Potassium 4.2 mmol/L (3.5-5.5); Sodium 140 mmol/L (135-145); Total Bilirubin 0.4 mg/dL (0.3-1.2); Total Protein 7.2 g/dL (6.2-8.2)
== END | disposition home or self-care (01) ==
LOC: LABWHC1 11:22
PROVIDERS: ATTEND Physician Assistant
DX: R10.9 Unspecified abdominal pain (principal)
CPT/HCPCS: 36415; 74021; 80053; 82150; 85025